=== PATIENT | female | born 1940 | race Caucasian/White ===

== ENCOUNTER 2020-07-21 15:43 | Emergency (ER) | payer MEDICARE, SELFPAY ==
--- NOTE | 2020-07-21 15:53 | ED.EXTPRO ---
HPI - Extremity Problem General Chief complaint: Extremity Injury, Lower Stated complaint: Numbness/Pain in Feet Time Seen by Provider: 07/21/20 16:23 Source: patient and RN notes reviewed Mode of arrival: ambulatory Limitations: no limitations History of Present Illness HPI Narrative: 80-year-old female with history of peripheral neuropathy presents with concern for bilateral lower extremity pain for 2 weeks. Reports she went to the ER and received pain medication at that time which she used all of. Reports she was seen by her primary care provider who put her on 100 mg of gabapentin twice daily that is not helping. She denies any new injury, trauma, change in status, reports she is having trouble sleeping to the pain. Reports she is unable to get into see pain management for approximately a month. MD Complaint: extremity pain Related Data Home Medications Medication Instructions Recorded Confirmed amlodipine 10 mg PO DAILY 07/21/20 07/21/20 gabapentin 100 mg PO BID 07/21/20 07/21/20 temazepam 15 mg PO HS 07/21/20 07/21/20 Allergies Allergy/AdvReac Type Severity Reaction Status Date / Time Sulfa (Sulfonamide Allergy Unknown Unknown Verified 07/21/20 16:04 Antibiotics) Review of Systems Review of Systems: Narrative: CONSTITUTIONAL: Denies malaise, chills, sweats, or fever. CARDIOVASCULAR: Denies chest pain, palpitations, or edema. RESPIRATORY: Denies cough or dyspnea. SKIN: Denies bruising, redness, open skin MUSCULOSKELETAL: Reports bilateral feet pain without injury NEUROLOGIC: Denies numbness, weakness. Reports bilateral feet pain and burning All systems reviewed & are unremarkable except as noted in HPI and below PMFSH Comments At time of signature, agree with nursing past medical, surgical, social and family history. There is no relevant family history pertinent to the presenting complaint Exam Narrative: Exam Narrative: GENERAL: Well-appearing, well-nourished, and in no acute distress. HEAD: Normocephalic, atraumatic. EYES: PERRLA, conjunctivae clear NECK: Supple. CHEST: Speaks in full sentences. No respiratory distress. HEART: Regular rate and rhythm. Normal and equal peripheral pulses. EXTREMITIES: Bilateral feet have normal strength and sensation, normal range of motion. No edema or ecchymosis. 5/5 strength with ankle and digit flexion and extension. Normal sensation with sensitivity to light touch and pain. No point tenderness. No open wounds, no skin tenting, no devitalized tissue or atrophy, no trophic changes, no obvious deformity, alignment normal, nearby joints and structures intact. Distal pulses palpable and equal bilaterally, skin warm, dry, pink. Capillary refill less than 3 seconds. SKIN: Warm, dry, no rash. NEURO: Alert and oriented x3. PSYCH: Normal mood and affect Course Course Emergency Course: Spoke with Dr. Giang's office who expressed a wish to not give patient pain medication, spoke about increasing gabapentin dose, which they will look into. Dr's office will call pain management to facilitate faster visit Patient is aware of, understands and agrees to treatment plan. Anticipatory guidance given. Patient agrees to follow-up as directed and is aware of reasons to seek care at the emergency department. Portions of this record may have been created with voice recognition software Vital Signs Vital signs: Vital Signs Temperature 99.7 F H 07/21/20 15:54 Pulse Rate 86 07/21/20 15:54 Respiratory Rate 16 07/21/20 15:54 Blood Pressure 130/61 07/21/20 15:54 Pulse Oximetry 98 07/21/20 15:54 Temperature 99.7 F H 07/21/20 16:08 Pulse Rate 86 07/21/20 16:08 Respiratory Rate 16 07/21/20 16:08 Blood Pressure 130/61 07/21/20 16:08 Pulse Oximetry 98 07/21/20 16:08 Reviewed. MDM - Extremity (Nontraumatic) MDM Narrative Medical decision making narrative: Exam findings show no acute concerns or changes; patient is non-toxic appearing and is in no distress.
[2020-07-21 15:54] VITALS: BP 130/61; PULSE 86; RESP 16; TEMP 37.6; O2SAT 98
[2020-07-21 16:08] VITALS: BP 130/61; PULSE 86; RESP 16; TEMP 37.6; O2SAT 98
== END 2020-07-21 16:26 | disposition home or self-care (01) ==
PROVIDERS: Emergency Provider Nurse Practitioner; PCP Internal Medicine
DX: G62.9 Polyneuropathy, unspecified (principal); I10 Essential (primary) hypertension; F41.9 Anxiety disorder, unspecified
CPT/HCPCS: 99213; G0463

== ENCOUNTER 2021-08-26 13:18 | Emergency (ER) | payer MEDICARE, SELFPAY ==
[2021-08-26 13:25] VITALS: BP 144/64; PULSE 95; RESP 20; TEMP 36.3; O2SAT 100
--- NOTE | 2021-08-26 13:43 | ED.URI ---
HPI - URI/Sore Throat General Chief Complaint: Upper Respiratory Infection Stated Complaint: Sore throat, ear pain, cough Time Seen by Provider: 08/26/21 13:21 Source: patient Mode of arrival: ambulatory Limitations: no limitations History of Present Illness HPI Narrative: 81-year-old female presents to urgent care with complaints of sore throat, bilateral ear pressure, runny nose and fatigue for the past week. Patient denies cough, shortness of breath, wheezing, nausea, vomiting or diarrhea. Patient is not COVID vaccinated. Patient denies sick contacts. Patient denies recent travel. MD elicited complaint: sore throat, rhinorrhea and nasal congestion Able to tolerate fluids by mouth: No Exacerbating factors: nothing Associated symptoms: denies other symptoms Treatments prior to arrival: none Related Data Home Medications Medication Instructions Recorded Confirmed amlodipine 10 mg PO DAILY 07/21/20 08/26/21 temazepam 15 mg PO HS 07/21/20 08/26/21 meloxicam 7.5 mg PO DAILY 08/26/21 08/26/21 omeprazole 20 mg PO DAILY 08/26/21 08/26/21 tramadol See Rx Instructions .ROUTE .COMPLEX 08/26/21 08/26/21 Allergies Allergy/AdvReac Type Severity Reaction Status Date / Time Sulfa (Sulfonamide Allergy Unknown Unknown Verified 08/26/21 13:34 Antibiotics) Review of Systems Constitutional: Constitutional: Denies chills, Reports fatigue, Denies fever(s) and Denies weakness ENT: Denies dysphagia, Denies vertigo, Denies dizziness, Reports nasal congestion and Reports sore throat Respiratory: Respiratory: Denies chest congestion, Denies cough, Denies dyspnea and Denies wheezing Gastrointestinal: Gastrointestinal: Denies abdominal pain, Denies constipation, Denies diarrhea, Denies nausea and Denies vomiting Integumentary/Breasts: Skin/Breast: Denies rash PMFSH Comments At time of signature, I agree with nursing past medical, surgical, social and family history. There is no relevant family history pertinent to the presenting complaint. Exam Const: General: healthy appearing and no acute distress Orientation/consciousness: patient oriented x3 HENMT: Head: normal to inspection Ears: external ears normal and TM's normal bilaterally General nose exam: Normal nares present Face and sinus: sinus tenderness Mouth: Yes moist mucous membranes Teeth and gingiva: dentition normal Throat: posterior oropharynx normal and uvula midline Neck: Neck: normal visual inspection Resp: Effort & Inspection: normal respiratory effort Auscultation: clear to auscultation bilaterally Cardio: Rate: regular rate Rhythm: regular rhythm and regular rhythm Skin: General skin exam: normal color Rashes: no rashes Neuro: General: patient oriented x3, moves all extremities and no meningeal signs Psych: Affect: normal affect Attitude: cooperative Course Course Level of Care: Express Care Visit Vital Signs Vital signs: Vital Signs Temperature 36.3 C L 08/26/21 13:25 Pulse Rate 95 08/26/21 13:25 Respiratory Rate 20 08/26/21 13:25 Blood Pressure 144/64 H 08/26/21 13:25 Pulse Oximetry 100 08/26/21 13:25 Temperature 36.3 C L 08/26/21 13:25 Pulse Rate 95 08/26/21 13:25 Respiratory Rate 20 08/26/21 13:25 Blood Pressure 144/64 H 08/26/21 13:25 Pulse Oximetry 100 08/26/21 13:25 MDM - URI/Sore Throat MDM Narrative Medical decision making narrative: Discussed positive COVID with patient. Patient understands that she is to self quarantine. Patient understands that she is take medications as prescribed. Patient agrees to proceed emergency room if symptoms worsen Differential Diagnosis Differential diagnosis: Likely upper respiratory infection, otitis media and sinusitis Critical Care Time Critical Care Time Critical Care Time: No Discharge Plan Discharge Clinical Impression: COVID-19 Patient Disposition: Home, Self-Care Condition: Stable Instructions: COVID-19 (Coronavirus Disease 2019) (ED)
== END 2021-08-26 13:55 | disposition home or self-care (01) ==
PROVIDERS: Emergency Provider Nurse Practitioner Family; PCP Internal Medicine
DX: U07.1 COVID-19 (principal); G62.9 Polyneuropathy, unspecified; I10 Essential (primary) hypertension
CPT/HCPCS: 87081; 87426; 87804; 87880; 99213; C9803; G0463

== ENCOUNTER 2024-01-24 13:38 | Emergency (ER) | payer MEDICARE, SELFPAY ==
--- NOTE | ~2024-01-24 | XR_ITS ---
XR hip LT min 2V Ordering provider: Iwona Pemberton APRN History: . LAT PAIN REFERRING DOWN HIP X 1 YEAR,NKI . Comparison: None. FINDINGS: BONES: No acute fracture or dislocation. HIP JOINT SPACES: Severe osteoarthritic changes. SACROILIAC JOINT SPACES/LUMBAR SPINE: The sacroiliac joint spaces are normal. Mild degenerative kendall es of the visualized lower lumbar spine. 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 PUBIC SYMPHYSIS: Pubic symphysitis. SOFT TISSUES: Vascular calcifications. IMPRESSION: No acute osseous abnormality pelvis and left hip. Reviewed, dictated and finalized at location A.
[2024-01-24 13:49] VITALS: BP 128/65; PULSE 90; RESP 20; TEMP 36.4; O2SAT 99
--- NOTE | 2024-01-24 14:32 | ED.LOWEXIN ---
HPI - Extremity Injury (Lower) General Chief Complaint: Extremity Injury, Lower Stated Complaint: Left Hip Paiin Time Seen by Provider: 01/24/24 14:32 Source: patient Mode of arrival: ambulatory Limitations: no limitations History of Present Illness HPI Narrative: 83 y/o female presented for c/o left hip pain worsening over 2 weeks. Denies new injury. Pain is constant to the left lateral hip and radiates to upper leg. Reports chronic intermittent left hip pain due to arthritis. Has tramadol but denies relief. Not using assistive device with walking. Denies numbness, tingling or weakness. Related Data Home Medications Medication Instructions Recorded Confirmed amlodipine 10 mg tablet 10 mg PO DAILY 07/21/20 08/26/21 temazepam 15 mg capsule 15 mg PO HS 07/21/20 08/26/21 omeprazole 20 mg capsule,delayed 20 mg PO DAILY 08/26/21 08/26/21 release tramadol 50 mg tablet See Rx Instructions .Route .COMPLEX 08/26/21 08/26/21 gabapentin 300 mg capsule mg 01/24/24 Allergies Allergy/AdvReac Type Severity Reaction Status Date / Time Sulfa (Sulfonamide Allergy Unknown Unknown Verified 01/24/24 13:58 Antibiotics) Review of Systems Review of Systems: CONSTITUTIONAL: Denies body aches, fever, chills CARDIOVASCULAR: Denies chest pain, palpitations, or edema. RESPIRATORY: Denies cough or dyspnea. GASTROINTESTINAL: Denies abdominal pain, nausea, vomiting, or diarrhea. SKIN: Denies rash, itching, or wounds. MUSCULOSKELETAL: reports left hip pain NEUROLOGIC: Denies headache, numbness, tingling, or weakness. All systems reviewed & are unremarkable except as noted in HPI and below [facility] Past Medical History Medical History (Updated 01/24/24 @ 15:22 by Iwona Pemberton, RENNY) Hypertension Comments At time of signature, I have reviewed and agree with nursing past medical, surgical, social and family history unless otherwise noted. Please see nursing chart for further information. There is no relevant family history pertinent to the presenting complaint Exam Narrative: GENERAL: Well-appearing CHEST: Speaks in full sentences. No respiratory distress. HEART: Regular rate and rhythm. Normal and equal peripheral pulses. EXTREMITIES: Left lateral hip tender with palpation. Left leg has normal strength and sensation, baseline range of motion at hip but endorses pain with movement. No ecchymosis, No open wounds, or obvious deformity; alignment normal, pulse palpable and equal bilaterally, skin warm, dry, pink. Capillary refill less than 3 seconds. SKIN: Warm, dry NEURO: Alert and oriented x3. PSYCH: Normal mood and affect Extrem: Upper/lower leg/hip images: 1. area of pain reported Course Course Emergency Course: Patient is aware of diagnosis, understands and agrees to treatment plan. Anticipatory guidance given. Patient agrees to follow-up as directed and is aware of reasons to seek care at the emergency department. Portions of this record may have been created with voice recognition software Level of Care: Express Care Visit Vital Signs Vital signs: Vital Signs Temperature 97.5 F L 01/24/24 13:49 Pulse Rate 90 01/24/24 13:49 Respiratory Rate 20 01/24/24 13:49 Blood Pressure 128/65 01/24/24 13:49 Pulse Oximetry 99 01/24/24 13:49 Oxygen Delivery Room Air 01/24/24 13:49 Temperature 97.5 F L 01/24/24 13:49 Pulse Rate 90 01/24/24 13:49 Respiratory Rate 20 01/24/24 13:49 Blood Pressure 128/65 01/24/24 13:49 Pulse Oximetry 99 01/24/24 13:49 Oxygen Delivery Room Air 01/24/24 13:49 Reviewed MDM - Extremity Injury (Lower) MDM Narrative Medical decision making narrative: results of x-ray reviewed with patient. Discussed physical exam findings. IM DepoMedrol given. Advised supportive measures and signs/symptoms to go to the ER. Pt is appropriate for outpt treatment and f/u. Differential Diagnosis Differential diagnosis: Likely acute internal derangement o
[2024-01-24] MEDS: methylPREDNISolone ACETATE 40 MG/ML VIAL IM (15:15)
== END 2024-01-24 15:46 | disposition home or self-care (01) ==
PROVIDERS: Emergency Provider Nurse Practitioner Family; PCP Internal Medicine
DX: M25.552 Pain in left hip (principal); I10 Essential (primary) hypertension
CPT/HCPCS: 73502; 96372; 99213; G0463; J1010

== ENCOUNTER 2024-05-27 13:25 | Emergency (ER) | payer MEDICARE, SELFPAY ==
[2024-05-27 13:30] VITALS: BP 147/63; PULSE 94; RESP 18; TEMP 36.2; O2SAT 100
--- NOTE | 2024-05-27 14:01 | ED.URI ---
HPI - URI/Sore Throat General Chief Complaint: Upper Respiratory Infection Stated Complaint: sinus head congestion Time Seen by Provider: 05/27/24 13:50 Source: patient, RN notes reviewed and old records reviewed Mode of arrival: ambulatory Limitations: no limitations History of Present Illness HPI Narrative: 84 year old female who presents to [facility] care with complaints of sinus head congestion for the past 3 weeks with sinus drainage, and facial pressure. Patient reports that she has been taking Flonase nasal spray and Claritin for her symptoms without resolution. Patient reports that she has sinus pressure and some frontal headaches from her sinus problems. Patient voices past history of sinus problems and infections. Patient reports no known fevers, chills or sweats or any body aches. MD elicited complaint: rhinorrhea, nasal congestion and other (facial pressure) Pertinent past history: sinusitis Onset (ago): week(s) (3) Severity: moderate Able to tolerate fluids by mouth: Yes Treatments prior to arrival: other (Flonase and also Claritin) Related Data Home Medications Medication Instructions Recorded Confirmed amlodipine 10 mg tablet 10 mg PO DAILY 07/21/20 08/26/21 temazepam 15 mg capsule 15 mg PO HS 07/21/20 08/26/21 omeprazole 20 mg capsule,delayed 20 mg PO DAILY 08/26/21 08/26/21 release tramadol 50 mg tablet See Rx Instructions .Route .COMPLEX 08/26/21 08/26/21 gabapentin 300 mg capsule mg 01/24/24 Allergies Allergy/AdvReac Type Severity Reaction Status Date / Time Sulfa (Sulfonamide Allergy Unknown Unknown Verified 01/24/24 13:58 Antibiotics) Review of Systems Review of Systems: CONSTITUTIONAL: Denies malaise, chills, sweats, or fever. EYES: Denies visual changes, redness, or discharge. ENT: Reports rhinorrhea, congestion, sinus pain,no otalgia and scratchy sore throat. CARDIOVASCULAR: Denies chest pain, palpitations, or edema. RESPIRATORY: Reports no cough.? Denies dyspnea. GASTROINTESTINAL: Denies abdominal pain, nausea, vomiting, diarrhea SKIN: Denies rash or itching. MUSCULOSKELETAL: Denies myalgia. NEUROLOGIC:some frontal headache. All systems reviewed & are unremarkable except as noted in HPI and below PMFSH Past Medical History Medical History (Updated 05/28/24 @ 12:53 by Susan Medley NP) Arthritis Fracture of right wrist Hypertension Insomnia Neuropathy Sinusitis Surgical History Surgical History (Updated 05/28/24 @ 12:49 by Susan Medley NP) History of cholecystectomy Social History Social History (Updated 05/28/24 @ 12:48 by Susan Medley NP) Smoking status: Never smoker Alcohol intake: never Substance use: never Gender identity (if verbalized by the patient): Female Comments At time of signature, agree with nursing past medical, surgical, social and family history. There is no relevant family history pertinent to the presenting complaint Exam Narrative: GENERAL: Well-appearing, well-nourished, and in no acute distress. HEAD: Normocephalic EYES: PERRLA, conjunctivae clear ENT: Nares clear, turbinates edematous and erythematous, clear discharge, sinus pressure, frontal headaches. Mucous membranes moist. TM pearly castro with dull light reflex bilaterally; no tragal tenderness. Oropharynx erythematous without lesions. Tonsils not enlarged and without exudate, no drooling, no hoarseness, no trismus, uvula midline.post nasal drainage NECK: Supple. No lymphadenopathy CHEST: Clear to auscultation, breath sounds equal. No wheezing, rhonchi, rales, or stridor. No respiratory distress, speaks in full sentences.no cough noted SAO2 100% on room air HEART: Regular rate and rhythm. No murmur heard. SKIN: Warm, dry, no rash. NEURO: Alert and oriented x3. PSYCH: Normal mood and affect Course Course Emergency Course: Patient is aware of diagnosis, understands and agrees to treatment plan.? Anticipatory guidance given
== END 2024-05-27 14:21 | disposition home or self-care (01) ==
PROVIDERS: Emergency Provider Registered Nurse; PCP Internal Medicine
DX: J32.9 Chronic sinusitis, unspecified (principal); M19.90 Unspecified osteoarthritis, unspecified site; I10 Essential (primary) hypertension
CPT/HCPCS: 99213; G0463

== ENCOUNTER 2024-09-28 14:45 | Emergency (ER) | payer MEDICARE, SELFPAY ==
--- OUTSIDE RECORDS SUMMARY | 2024-09-28 14:47 | XMS_ITS | Encounter Summary ---
Author Organization [facility] Address [address] [place] [address] Phone Care Team Providers Care Merchandise Complaint Adjuster Name Role Phone John Giang MD Primary Care Provider [phone] Reason for Visit * Reason Comments Medication Refill Encounter Details Date Type Department Care Team ([facility] Contact Info) Description 06/20/2023 Refill [facility] [address] [place] [address] John Giang MD [address] [place] [address] Medication Refill Social History Tobacco Use Types Packs/Day Years Used Date Smoking Tobacco: Never Passive Smoke Exposure: Never Smokeless Tobacco: Never Alcohol Use Standard Drinks/Week Comments Never 0 (1 standard drink = 0.6 oz pur e alcohol) Education Answer Date Recorded What is the highest level of school you have completed or the highest degree you have received? 12th grade 10/31/2022 Sexually Active Control Partners Comments Not Currently Comments No Sex and Gender Information Value Date Recorded Sex Assigned at Not on file Legal Sex Female 12:34 AM CDT Gender Identity Not on file Sexual Orientation Not on file documented as of this encounter Plan of Treatment Upcoming Encounters Date Type Department Care Team ([facility] Contact Info) Description 10/10/2024 1:45 PM LEGAL TRANSCRIBER Office Visit [facility] Internal [facility] [address] [place] [address] John Giang MD [address] [place] [address] documented as of this encounter Visit Diagnoses Diagnosis Generalized anxiety disorder documented in this encounter Additional Health Concerns Assessment Noted Time PHQ-9 Depression Total Score: 0 08/24/19 21 1:00 PM LEGAL TRANSCRIBER documented as of this encounter Care Teams Merchandise Complaint Adjuster Relationship Specialty Start Date End Date John Giang MD [address] [place] [address] PCP - General Internal Medicine 09/26/19 documented as of this encounter
--- OUTSIDE RECORDS SUMMARY | 2024-09-28 14:47 | XMS_ITS | Encounter Summary ---
Author Organization [facility] Address [address] [place] [address] Phone Care Team Providers Care Staff Technologist Name Role Phone John Giang MD Primary Care Provider [phone] Reason for Visit * Reason Comments Medication Refill Encounter Details Date Type Department Care Team (Late st Contact Info) Description 01/30/2023 Refill [facility] - Internal Medicine - [place] [address] [place] [id number] John Giang MD [address] [facility] [address] Medication Refill Social History Tobacco [...] on file documented as of this encounter Miscellaneous Notes * Telephone Encounter - Margarita Baer RN - 01/30/2023 9:46 AM CDT Medication failed the protocol, provider to review and approve the medication order if appropriate. Requested Prescriptions Pending Prescriptions Disp Refills temazepam (RESTORIL) 15 MG Capsule [Pharmacy Med Name: TEMAZEPAM 15MG CAPSULE] 30 Capsule 0 Sig: Take 1 Capsule by mouth nightly as needed for Sleep. Not Delegated - Off Protocol Failed - 01/30/2023 9:44 AM Failed - This refill cannot be delegated Passed - Visit with relevant provider in past 12 months or upcoming 90 days Recent Visits Date Type Provider Dept 12/22/22 Office Visit John Giang MD [facility] 11/21/22 Office Visit John Giang, MD [facility] 11/07/22 Office Visit John Giang MD [facility] 10/31/22 Office Visit Terri Melvin, PAC [facility] 06/30/22 Office Visit John Giang MD [facility] 05/12/22 Office Visit Terri Melvin, PAC [facility] 05/06/22 Office Visit Terri Melvin, PAC [facility] 05/06/22 Appointment [facility] Showing recent visits within past 365 days and meeting all other requirements Future Appointments Date Type Provider Dept 03/27/23 Appointment John Giang MD [facility] Showing future appointments within next 90 days and meeting all other requirements documented in this encounter Plan of Treatment Upcoming Encounters Date Type Department Care Team (Late st Contact Info) Description 10/10/2024 1:45 PM DIRECTOR OF CODING Office Visit [facility] - Internal Medicine - [place] [address] [place] [id number] John Giang MD [address] [place] [address] documented as of this encounter Visit Diagnoses Diagnosis Primary insomnia Persistent disorder of initiating or maintaining sleep documented in this encounter Additional Health Concerns Assessment Noted Time PHQ-9 Depression Total Score: 0 08/24/19 21 1:00 PM DIRECTOR OF CODING documented as of this encounter Care Teams Staff Technologist Relationship Specialty Start Date End Date John Giang MD [address] [place] [address] PCP - General Internal Medicine 09/26/19 documented as of this encounter
--- OUTSIDE RECORDS SUMMARY | 2024-09-28 14:47 | XMS_ITS | Encounter Summary ---
Author Organization [facility] Address [address] [place] [address] Phone Care Team Providers Care Aeronautical Drafter Name Role Phone John Giang MD Primary Care Provider [phone]- [phone] Reason for Visit * Reason Comments Medication Refill Encounter Details Date Type Department Care Team (Late st Contact Info) Description 06/23/2023 Refill [facility] - Internal Medicine - [place] [address] [place] [id number] John Giang MD [address] [facility] [place] [address] Medication Refill Social History Tobacco [...] Telephone Encounter - Margarita Baer RN - 06/23/2023 10:34 AM CST Medication failed the protocol, provider to review and approve the medication order if appropriate. Requested Prescriptions Pending Prescriptions Disp Refills temazepam (RESTORIL) 15 MG Capsule [Pharmacy Med Name: TEMAZEPAM 15MG CAPSULE] 30 Capsule 1 Sig: TAKE 1 CAPSULE BY MOUTH NIGHTLY NEEDED FOR SLEEP. Not Delegated - Off Protocol Failed - 06/23/2023 10:24 AM Failed - This refill cannot be delegated Passed - Visit with relevant provider in past 12 months or upcoming 90 days Recent Visits Date Type Provider Dept 04/13/23 Office Visit John Giang MD [facility] 12/22/22 Office Visit John Giang MD [facility] 11/21/22 Office Visit John Giang MD [facility] 11/07/22 Office Visit John Giang MD [facility] 10/31/22 Office Visit Terri Melvin PAC [facility] 06/30/22 Office Visit John Giang MD [facility] Showing recent visits within past 365 days and meeting all other requirements Future Appointments Date Type Provider Dept 07/20/23 Appointment John Giang MD [facility] Showing future appointments within next 90 days and meeting all other requirements [facility] documented in this encounter Plan of Treatment Upcoming Encounters Date Type Department Care Team (Late st Contact Info) Description 10/10/2024 1:45 PM [facility] Office Visit [facility] - Internal Medicine - [place] [address] [place] [phone] John Giang MD [address] [place] [address] documented as of this encounter Visit Diagnoses Diagnosis Primary insomnia Persistent disorder of initiating or maintaining sleep documented in this encounter Additional Health Concerns Assessment Noted Time PHQ-9 Depression Total Score: 0 08/24/19 21 1:00 PM [facility] documented as of this encounter Care Teams Aeronautical Drafter Relationship Specialty Start Date End Date John Giang MD [address] [place] [address] PCP - General Internal Medicine 09/26/19 documented as of this encounter
--- OUTSIDE RECORDS SUMMARY | 2024-09-28 14:47 | XMS_ITS | Referral Summary ---
Author Organization [facility] Address [address] [place] [address] Care Team Providers Care Criminal Analyst Name Role Phone John Giang MD Primary Care Provider +1- [phone] Mattie Myles MD Unavailable Allergies Active Allergy Reactions Criticality Noted Date Comments Sulfa (Sulfonamide Antibiotics) Unknown 03/2019 Medications temazepam (RESTORIL) 15 mg capsuleIndication s:Insomnia Take 1 capsule (15 mg total) by mouth nightly as needed for sleep 3 capsule 03/01/20 19 Active omeprazole (PriLOSEC) 20 mg capsule Take 1 capsule (20 mg total) by mouth daily Active amLODIPine (NORVASC) 10 mg tablet Take 1 tablet (10 mg total) by mouth daily 30 tablet 11 05/10/20 19 Active acetaminophen (TYLENOL) 325 mg tablet Take 2 tablets (650 mg total) by mouth every 6 (six) hours as needed for pain or fever (pain) 30 tablet 05/09/20 19 Active LORazepam (ATIVAN) 0.5 mg tablet 05/28/20 19 Active ondansetron ODT (ZOFRAN-ODT) 4 mg disintegrating tablet Take 1 tablet (4 mg total) by mouth every 8 (eight) hours as needed for nausea or vomiting 20 tablet 1 06/10/20 19 Active bisacodyL (DULCOLAX) 10 mg suppositoryIndica tions:constipatio n Insert 1 suppository (10 mg total) into the rectum daily Use as needed for constipation. 12 suppository 04/05/20 20 Active diclofenac sodium (VOLTAREN) 1 % gelIndications:Os teoarthritis Apply 2 g topically 3 (three) times a day 50 g 06/24/20 20 Active hydrOXYzine (ATARAX) 25 mg tablet Take 1 tablet (25 mg total) by mouth 3 (three) times a day as needed for itching 20 tablet 07/07/20 20 Active HYDROcodone-aceta minophen (NORCO) 5-325 mg per tablet Take 1-2 tablets by mouth every 6 (six) hours as needed 07/10/20 20 Active docusate sodium (COLACE) 100 mg capsuleIndication s:constipation Take 1 capsule (100 mg total) by mouth 2 (two) times a day 60 capsule 08/27/19 21 Active psyllium (METAMUCIL) powder Take 1 packet by mouth 3 (three) times a day with at least 240 mL of liquid 368 g 08/27/19 21 Active metoclopramide (REGLAN) 10 mg tablet Take 1 tablet (10 mg total) by mouth every 6 (six) hours as needed (Nausea) 20 tablet 08/27/19 21 Active famotidine (PEPCID) 40 mg tablet Take 1 tablet (40 mg total) by mouth nightly for 14 days 14 tablet 08/27/19 21 Active traMADol-acetamin ophen (ULTRACET) 37.5-325 mg per tablet Take 1 tablet by mouth every 6 (six) hours as needed for pain Take as directed with food. Collaborating physician Gennaro Galeana MD 20 tablet 10/29/19 23 Active Active Problems Problem Noted Date Diagnosed Date Head injury, initial encounter 10/28/2022 Forehead laceration, initial encounter 3 Cervical strain, acute, initial encounter 2022 Transaminitis 06/08/2019 Assessment & Plan (06/10/2019 9:47 AM CDT): During prior admission LFTs improved following cholecystectomy: alk-phos 153 > 89, AST 266 > 62, ALT 263 > 109. On presentation to ED on 06/07 labs were performed in 8 hour interval and showed significant increase between testing around noon and then again at 8:00 PM: alk-phos 166 > 282, AST 174 > 854, ALT 67 > 508. There is no bilirubin elevation either in April or currently. CT abdomen pelvis on 06/07 showed mild intrahepatic and extrahepatic pillar dilatation with common hepatic common bile duct measuring 10-11 mm; without identifiable opaque intraluminal filling. Rising LFTs possibly d/t retained bile duct stone although not visualized on CT. Lipase unremarkable. Acetominophen level negative. Hepatits panel negative. LFTs improving GI on board. MRCP 06/09/19: No bile leak, no filling defeat, increased biliary dilatation consistent with postop cholesctectomy. Discuss the need for ERCP with GI. Morphine 2mg q4h PRN for pain Hypertension, essential 06/08/2019 Assessment & Plan (06/08/2019 1:08 AM CDT): Continue home amlodipine 5 mg daily Other chest pain 03/27/2019 Generalized anxiety disorder 03/27/2019 Assessment & Plan (06/08/2019 1:10 AM CDT): Receives 0.5 mg lorazepam TID PRN for her anxiety. Will hold off on additional benzodiazepines while patient is admitted. Can consider hydroxyzine PRN if patient has issues with anxiety while admitted Chronic idiopathic constipation 03/27/2019 Insomnia 01/10/2019 Assessment & Plan (06/08/2019 1:09 AM CDT): Prescribed temazepam 15 mg nightly at home. Will dose reduce for geriatric to 7.5 mg nightly qHs Degenerative disc disease, cervical 12/27/2018 Occipital neuralgia of right side 12/27/2018 EKG abnormalities Chronic nonintractable headache Epigastric pain Gallstone pancreatitis Resolved Problems Problem Noted Date Diagnosed Date Resolved Date Acute cholecystitis 05/07/2019 06/08/20 19 Hyponatremia 03/27/2019 06/08/2019 Immunizations Name Administration Dates Next Due Tdap 10/28/2022 Social History Tobacco Use Types Packs/Day Years Used Date Smoking Tobacco: Never Smokeless Tobacco: Never Alcohol Use Standard Drinks/Week Comments Never 0 (1 standard drink = 0.6 oz pur e alcohol) AUDIT-C Answer Date Recorded Frequency of Alcohol Consumption Never 12/27/2018 Average Number of Drinks Not on file 019 Frequency of Binge Drinking Not on file 12/12 PHQ-2 Answer Date Recorded PHQ-2 Score 0 04/03/2019 Personal Safety Answer Date Recorded Have you ever been in or are you currently in a harmful physical or emotional relationship or is someone making you feel afraid or unsafe? Denies 01/28/2024 Comments No Sex and Gender Information Value Date Recorded Sex Assigned at Not on file Legal Sex Female 9:12 AM HANDBELL CHOIR DIRECTOR Gender Identity Not on file Sexual Orientation Not on file Last Filed Vital Signs Vital Sign Reading Time Taken Comments Blood Pressure 120/73 03/28/2024 10:50 AM CDT Pulse 84 03/28/2024 10:50 AM CDT Temperature 36.3 C (97.3 F) 01/28/2024 7:11 PM CDT Respiratory Rate 16 01/28/2024 7:11 PM CDT Oxygen Saturation 97% 01/28/2024 7:11 PM CDT Inhaled Oxygen Concentration - - Weight 62.1 kg (137 lb) 03/28/2024 10:50 AM CDT Height 165.1 cm (5' 5 ) 03/28/2024 10:50 AM CDT Body Mass Index 22.8 03/28/2024 10:50 AM CDT Plan of Treatment Not on [place] [address] [address] [facility] [employer] [place] [address] [employer] MEDICARE GOLD Advance Directives For more information, please contact: [phone] * Full Code (Latest Code Status on File) Date Activated Date Inactivated Comments 06/07/2019 11:04 PM 06/10/2019 5:07 PM * Full Code Date Activated Date Inactivated Comments 05/07/2019 4:14 PM 05/09/2019 8:31 PM * Full Code Date Activated Date Inactivated Comments 03/27/2019 5:35 PM 03/28/2019 10:20 PM Care Teams Criminal Analyst Relationship Specialty Start Date End Date John Giang MD PCP - General 12/07/18 Mattie Myles MD Consulting Physician Neurology 03/28/19
--- OUTSIDE RECORDS SUMMARY | 2024-09-28 14:47 | XMS_ITS | Encounter Summary ---
Author Organization [facility] Address [address] [place] [address] Phone Care Team Providers Care Monorail Crane Operator Name Role Phone John Giang MD Primary Care Provider [phone]- [phone] Reason for Visit * Reason Comments Medication Refill Encounter Details Date Type Department Care Team ([facility] Contact Info) Description 03/29/2023 Refill [facility] Internal Medicine [facility] [address] [place] [address] John Giang MD [address] [place] [address] Medication Refill Social History Tobacco [...] Upcoming Encounters Date Type Department Care Team ([facility] Contact Info) Description 10/10/2024 1:45 PM TRAVEL DIRECTOR Office Visit [facility] Internal [facility] [address] [place] [address] John Giang MD [address] [place] [address] documented as of this encounter Visit Diagnoses Diagnosis Primary insomnia Persistent disorder of initiating or maintaining sleep documented in this encounter Additional Health Concerns Assessment Noted Time PHQ-9 Depression Total Score: 0 08/24/19 21 1:00 PM TRAVEL DIRECTOR documented as of this encounter Care Teams Monorail Crane Operator Relationship Specialty Start Date End Date John Giang MD [address] [place] [address] PCP - General Internal Medicine 09/26/19 documented as of this encounter
--- OUTSIDE RECORDS SUMMARY | 2024-09-28 14:47 | XMS_ITS | Encounter Summary ---
Author Organization [facility] Address [address] [place] [address] Phone Care Team Providers Care Senior Partner Name Role Phone John Giang MD Primary Care Provider Reason for Visit * Reason Comments Medication Refill Encounter Details Date Type Department Care Team (Late st Contact Info) Description 05/01/2020 Refill [facility] - Internal Medicine - [place] [address] [place] [id number] John Giang MD [address] [facility] [place] [address] Medication Refill Social History Tobacco Use Types Packs/Day Years Used Date Smoking Tobacco: Never Assessed Comments Unknown Sex and Gender Information Value Date Recorded Sex Assigned at Not on file Legal Sex Female 12:34 AM CDT Gender Identity Not on file Sexual Orientation Not on file documented as of this encounter Miscellaneous Notes * Telephone Encounter - Ileana Tapia RN - 05/05/2020 11:19 AM CDT Order pended * Telephone Encounter - Ileana Tapia RN - 05/05/2020 8:27 AM CDT Please review and sign. documented in this encounter Plan of Treatment Upcoming Encounters Date Type Department Care Team (Late st Contact Info) Description 10/10/2024 1:45 PM PERCOLATOR OPERATOR Office Visit [facility] - Internal Medicine [facility] [address] [place] [address] John Giang MD [address] [place] [address] documented as of this encounter Visit Diagnoses Not on filedocumented in this encounter Additional Health Concerns Infection Onset Date Last Indicated Resolved Time COVID - 19 2022 05/06/2022 05/16/2022 12:1 6 AM CDT documented as of this encounter Care Teams Senior Partner Relationship Specialty Start Date End Date John Giang MD [address] [place] [address] PCP - General Internal Medicine 09/26/19 documented as of this encounter
--- OUTSIDE RECORDS SUMMARY | 2024-09-28 14:47 | XMS_ITS | Encounter Summary ---
Author Organization [facility] Address [address] [place] [address] Phone Care Team Providers Care Rehabilitation Services Manager Name Role Phone John Giang MD Primary Care Provider Reason for Visit * Reason Comments Medication Refill Encounter Details Date Type Department Care Team (Late st Contact Info) Description 06/25/2022 Refill [facility] - [place] [address] [facility] [place] [place] [phone] John Giang MD [address] [facility] [place] [address] Medication Refill Social History Tobacco Use Types Packs/Day Years Used Date Smoking Tobacco: Never Smokeless Tobacco: Never Alcohol Use Standard Drinks/Week Comments Never 0 (1 standard drink = 0.6 oz pur e alcohol) Sexually Active Control Partners Comments Not Currently Comments No Sex and Gender Information Value Date Recorded Sex Assigned at Not on file Legal Sex Female 12:34 AM CDT Gender Identity Not on file Sexual Orientation Not on file documented as of this encounter Miscellaneous Notes * Telephone Encounter - John Giang MD - 06/27/2022 7:52 AM RELATIONSHIP ASSOC Refill denied - See Refusal reason [employer] * Telephone Encounter - Ileana Tapia RN - 06/27/2022 6:50 AM CST Medication failed the protocol, provider to review and approve the medication order if appropriate. Requested Prescriptions Pending Prescriptions Disp Refills temazepam (RESTORIL) 15 MG Capsule [Pharmacy Med Name: TEMAZEPAM 15MG CAPSULE] 30 Capsule 4 Sig: TAKE 1 CAPSULE BY MOUTH NIGHTLY NEEDED FOR SLEEP. Not Delegated - Off Protocol Failed - 06/25/2022 9:22 PM Failed - This refill cannot be delegated Passed - Visit with relevant provider in past 12 months or upcoming 90 days Recent Visits Date Type Provider Dept 05/12/22 Office Visit Terri Melvin, [facility] [place] 05/06/22 Office Visit Terri Melvin, [facility] [place] 05/06/22 Appointment [facility] [place] 01/18/22 Office Visit John Giang MD [facility] [place] 10/15/21 Office Visit John Giang MD [facility] Showing recent visits within past 365 days and meeting all other requirements Future Appointments No visits were found meeting these conditions. Showing future appointments within next 90 days and meeting all other requirements [employer] documented in this encounter Plan of Treatment Upcoming Encounters Date Type Department Care Team (Late st Contact Info) Description 10/10/2024 1:45 PM RELATIONSHIP ASSOC Office Visit [facility] - Internal Medicine - [place] [address] [place] [id number] John Giang MD [address] [place] [address] documented as of this encounter Visit Diagnoses Diagnosis Primary insomnia Persistent disorder of initiating or maintaining sleep documented in this encounter Additional Health Concerns Assessment Noted Time PHQ-9 Depression Total Score: 0 08/24/19 21 1:00 PM RELATIONSHIP ASSOC documented as of this encounter Care Teams Rehabilitation Services Manager Relationship Specialty Start Date End Date John Giang MD [address] [place] [place] [address] PCP - General Internal Medicine 09/26/19 documented as of this encounter
--- OUTSIDE RECORDS SUMMARY | 2024-09-28 14:47 | XMS_ITS | Encounter Summary ---
Author Organization [facility] Address [address] [place] [address] Phone Care Team Providers Care Accordion Tuner Name Role Phone John Giang MD Primary Care Provider [phone]- [phone] Reason for Visit * Reason Comments Medication Refill Encounter Details Date Type Department Care Team (Late st Contact Info) Description 10/26/2020 Refill [facility] Medicine - [place] [address] [place] [address] John Giang MD [address] [place] [address] Medication Refill Social History Tobacco Use Types Packs/Day Years Used Date Smoking Tobacco: Never Smokeless Tobacco: Never Alcohol Use Standard Drinks/Week Comments Never 0 (1 standard drink = 0.6 oz pur e alcohol) Comments No Sex and Gender Information Value Date Recorded Sex Assigned at Not on file Legal Sex Female 12:34 AM CDT Gender Identity Not on file Sexual Orientation Not on file documented as of this encounter Miscellaneous Notes * Telephone Encounter - Ileana Tapia RN - 10/26/2020 11:44 AM CDT Please review and sign. * Telephone Encounter - Ileana Tapia RN - 10/26/2020 11:19 AM CDT Order pended documented in this encounter Plan of Treatment Upcoming Encounters Date Type Department Care Team (Late st Contact Info) Description 10/10/2024 1:45 PM MACHINE EGG WASHER Office Visit [facility] - Internal Medicine [place] [address] [place] [address] John Giang MD [address] [place] [address] documented as of this encounter Visit Diagnoses Not on filedocumented in this encounter Additional Health Concerns Infection Onset Date Last Indicated Resolved Time COVID - 19 2022 05/06/2022 05/16/2022 12:1 6 AM CDT Assessment Noted Time PHQ-9 Depression Total Score: 0 08/24/19 21 1:00 PM MACHINE EGG WASHER documented as of this encounter Care Teams Accordion Tuner Relationship Specialty Start Date End Date John Giang MD [address] [place] [address] PCP - General Internal Medicine 09/26/19 documented as of this encounter
--- OUTSIDE RECORDS SUMMARY | 2024-09-28 14:47 | XMS_ITS | Encounter Summary ---
Author Organization [facility] Address [address] [place] [address] Phone Care Team Providers Care Community Liaison Officer Name Role Phone John Giang MD Primary Care Provider [phone]- [phone] Reason for Visit * Reason Comments Medication Refill Encounter Details Date Type Department Care Team (Late st Contact Info) Description 08/25/2020 Refill [facility] - Internal Medicine - [place] [address] [place] [address] John Giang MD [address] [place] [address] Medication Refill Social History Tobacco [...] on file Sexual Orientation Not on file COVID-19 Exposure Response Date Recorded In the last month, have you been in contact with someone who was confirmed or suspected to have Coronavirus / COVID-19? No / Unsure 08/24/2020 1:26 PM PACKAGING MECHANIC documented as of this encounter Miscellaneous Notes * Telephone Encounter - Ileana Tapia RN - 08/25/2020 8:31 AM CST Please review and sign. AGING MECHANIC documented in this encounter Plan of Treatment Upcoming Encounters Date Type Department Care Team (Late st Contact Info) Description 10/10/2024 1:45 PM PACKAGING MECHANIC Office Visit [facility] - Internal Medicine [place] [address] [place] [address] John Giang MD [address] [place] [address] documented as of this encounter Visit Diagnoses Not on filedocumented in this encounter Additional Health Concerns Infection Onset Date Last Indicated Resolved Time COVID - 19 2022 05/06/2022 05/16/2022 12:1 6 AM CDT Assessment Noted Time PHQ-9 Depression Total Score: 0 08/24/19 21 1:00 PM PACKAGING MECHANIC documented as of this encounter Care Teams Community Liaison Officer Relationship Specialty Start Date End Date John Giang MD [address] [place] [address] PCP - General Internal Medicine 09/26/19 documented as of this encounter
--- OUTSIDE RECORDS SUMMARY | 2024-09-28 14:47 | XMS_ITS | Encounter Summary ---
Author Organization [facility] Address [address] [place] [address] Phone Care Team Providers Care Dog Breeder Name Role Phone John Giang MD Primary Care Provider [phone]- [phone] Reason for Visit * Reason Comments Medication Refill Encounter Details Date Type Department Care Team (Late st Contact Info) Description 01/30/2023 Refill [facility] - Internal Medicine - [place] [address] [place] [address] Terri Melvin, [facility] [address] [place] [address] Medication Refill Social History Tobacco [...] encounter Miscellaneous Notes * Telephone Encounter - Dalila France RN - 01/31/2023 8:05 AM CDT Duplicate request documented in this encounter Plan of Treatment Upcoming Encounters Date Type Department Care Team (Late st Contact Info) Description 10/10/2024 1:45 PM RADIO PROGRAM CHECKER Office Visit [facility] - Internal Medicine [facility] [address] [place] [address] John Giang MD [address] [place] [address] documented as of this encounter Visit Diagnoses Diagnosis Chronic pain of both shoulders Pain in joint, shoulder region documented in this encounter Additional Health Concerns Assessment Noted Time PHQ-9 Depression Total Score: 0 08/24/19 21 1:00 PM RADIO PROGRAM CHECKER documented as of this encounter Care Teams Dog Breeder Relationship Specialty Start Date End Date John Giang MD [address] [place] [address] PCP - General Internal Medicine 09/26/19 documented as of this encounter
--- OUTSIDE RECORDS SUMMARY | 2024-09-28 14:47 | XMS_ITS | Encounter Summary ---
Author Organization [facility] Address [address] [place] [address] Phone Care Team Providers Care Terrazzo Finisher Name Role Phone John Giang MD Primary Care Provider [phone] Reason for Visit * Reason Comments Medication Refill Encounter Details Date Type Department Care Team (Late st Contact Info) Description 06/28/2022 Refill [facility] - Internal Medicine - [place] [address] [place] [address] John Giang MD [address] [facility] [place] [address] Medication Refill Social History Tobacco [...] Exposure Response Date Recorded In the last 10 days, have yo u been in contact with someone who was confirmed or suspected to have Coronavirus/COVID-19? No / Unsure 06/30/2022 10:45 AM EMERGENCY TECHNICIAN documented as of this encounter Miscellaneous Notes * Telephone Encounter - Margarita Baer RN - 06/28/2022 3:19 PM CST duplicate GENCY TECHNICIAN documented in this encounter Plan of Treatment Upcoming Encounters Date Type Department Care Team (Late st Contact Info) Description 10/10/2024 1:45 PM EMERGENCY TECHNICIAN Office Visit [facility] - Internal Medicine [place] [address] [place] [place] [address] John Giang MD [address] [place] [address] documented as of this encounter Visit Diagnoses Diagnosis Primary insomnia Persistent disorder of initiating or maintaining sleep documented in this encounter Additional Health Concerns Assessment Noted Time PHQ-9 Depression Total Score: 0 08/24/19 21 1:00 PM EMERGENCY TECHNICIAN documented as of this encounter Care Teams Terrazzo Finisher Relationship Specialty Start Date End Date John Giang MD [address] [place] [address] PCP - General Internal Medicine 09/26/19 documented as of this encounter
--- OUTSIDE RECORDS SUMMARY | 2024-09-28 14:47 | XMS_ITS | Clinical Summary ---
Author Organization [facility] Address [address] [place] [address] Care Team Providers Care Marketing Automation Specialist Name Role Phone John Giang MD Primary Care Provider [phone]- [phone] Mattie Myles MD Unavailable Allergies Active Allergy [...] Name Administration Dates Next Due Tdap 10/28/2022 Surgical History Surgery Date Site/Laterality Comments WRIST FRACTURE SURGERY Right CHOLECYSTECTOMY Medical History Medical History Date Comments Headache Hypertension treated by pcp Hypertension, essential 06/08/2019 Family History Medical History Relation Name Comments Diabetes Father Alzheimer's disease Mother Relation Name Status Comments Father Mother Social History Tobacco Use Types Packs/Day Years [...] on file Legal Sex Female 9:12 AM REGULATORY CONSULTANT Gender Identity Not on file Sexual Orientation Not on file Obstetrics History Last Filed Vital Signs Vital Sign Reading [...] 03/28/2024 10:50 AM CDT Plan of Treatment Health Maintenance Due Date Last Done Comments Fall Risk Assessment 1938 Hepatitis B Screening 1956 Zoster Vaccine (1 of 2) 1988 Well Visit 65+ 2003 Pneumococcal vaccine 65+ (2 of 2 - PPSV23 or PCV20) 03/24/2015 03/24/2014 Depression Screening 05/07/2020 05/07/2019, 03/27/20 19 Influenza Vaccine (#1) 2024 DTaP/Tdap/Td Vaccine (2 - Td or Tdap) 10/28/[address] [place] [address] [employer] [place] [address] [facility] HMO [place] [address] AET MEDICARE GOLD Advance Directives For more information, please contact: [phone] * Full Code (Latest Code Status on File) Date Activated Date Inactivated Comments 06/07/2019 11:04 PM 06/10/2019 5:07 PM * Full Code Date Activated Date Inactivated Comments 05/07/2019 4:14 PM 05/09/2019 8:31 PM * Full Code Date Activated Date Inactivated Comments 03/27/2019 5:35 PM 03/28/2019 10:20 PM Care Teams Marketing Automation Specialist Relationship Specialty Start Date End Date John Giang MD PCP - General 12/07/18 Mattie Myles MD Consulting Physician Neurology 03/28/19
--- OUTSIDE RECORDS SUMMARY | 2024-09-28 14:47 | XMS_ITS | Encounter Summary ---
Author Organization [facility] Address [address] [place] [address] Phone Care Team Providers Care Gas Manager Name Role Phone John Giang MD Primary Care Provider +1- [phone] Reason for Visit * Reason Comments Medication Refill Encounter Details Date Type Department Care Team (Late st Contact Info) Description 10/24/2022 [facility]ill [facility] - [place] [address] [place] [phone] John Giang MD [address] [place] [address] Medication Refill Social History Tobacco [...] Telephone Encounter - Margarita Baer RN - 10/24/2022 11:08 AM CDT Medication failed the protocol, provider to review and approve the medication order if appropriate. Requested Prescriptions Pending Prescriptions Disp Refills temazepam (RESTORIL) 15 MG Capsule [Pharmacy Med Name: TEMAZEPAM 15 MG CAPSULE] 30 Capsule 0 Sig: Take 1 Capsule by mouth nightly as needed for Sleep. Not Delegated - Off Protocol Failed - 10/24/2022 10:50 AM Failed - This refill cannot be delegated Passed - Visit with relevant provider in past 12 months or upcoming 90 days Recent Visits Date Type Provider Dept 06/30/22 Office Visit John Giang MD [facility] [place] 05/12/22 Office Visit Terri Melvin, PAC [facility] [place] 05/06/22 Office Visit Terri Melvin, PAC [facility] [place] 05/06/22 Appointment Lab, [place] [facility] [place] 01/18/22 Office Visit John Giang MD [facility] [place] Showing recent visits within past 365 days and meeting all other requirements Future Appointments No visits were found meeting these conditions. Showing future appointments within next 90 days and meeting all other requirements * Telephone Encounter - Margarita Baer RN - 10/24/2022 11:08 AM CDT Medication failed the protocol, provider to review and approve the medication order if appropriate. Requested Prescriptions Pending Prescriptions Disp Refills temazepam (RESTORIL) 15 MG Capsule [Pharmacy Med Name: TEMAZEPAM 15 MG CAPSULE] 30 Capsule 0 Sig: Take 1 Capsule by mouth nightly as needed for Sleep. Not Delegated - Off Protocol Failed - 10/24/2022 10:50 AM Failed - This refill cannot be delegated Passed - Visit with relevant provider in past 12 months or upcoming 90 days Recent Visits Date Type Provider Dept 06/30/22 Office Visit John Giang MD [facility] [place] 05/12/22 Office Visit Terri Melvin, PAC [facility] [place] 05/06/22 Office Visit Terri Melvin, PAC [facility] [place] 05/06/22 Appointment Lab, [place] [facility] [place] 01/18/22 Office Visit John Giang MD [facility] [place] Showing recent visits within past 365 days and meeting all other requirements Future Appointments No visits were found meeting these conditions. Showing future appointments within next 90 days and meeting all other requirements * Telephone Encounter - Meseret Suggs - 10/24/2022 10:49 AM CDT Medication Refill Medication: temazepam (RESTORIL) [facility]acy: [facility] [place] documented in this encounter Plan of Treatment Upcoming Encounters Date Type Department Care Team (Late st Contact Info) Description 10/10/2024 1:45 PM LANGUAGE ARTS TEACHER Office Visit [facility] - [facility] [address] [place] [address] John Giang MD [address] [place] [address] documented as of this encounter Visit Diagnoses Diagnosis Primary insomnia Persistent disorder of initiating or maintaining sleep documented in this encounter Additional Health Concerns Assessment Noted Time PHQ-9 Depression Total Score: 0 08/24/19 21 1:00 PM LANGUAGE ARTS TEACHER documented as of this encounter Care Teams Gas Manager Relationship Specialty Start Date End Date John Giang MD [address] [place] [address] PCP - General Internal Medicine 09/26/19 documented as of this encounter
--- OUTSIDE RECORDS SUMMARY | 2024-09-28 14:47 | XMS_ITS | Encounter Summary ---
Author Organization [facility] Address [address] [place] [address] Phone Care Team Providers Care Expert Witness Name Role Phone John Giang MD Primary Care Provider Reason for Visit * Reason Comments Medication Refill Encounter Details Date Type Department Care Team (Late st Contact Info) Description 06/24/2020 Refill [facility] - [place] [address] [place] [phone] John Giang MD [address] [facility] [place] [place] [address] Medication Refill Social History Tobacco Use Types Packs/Day Years Used Date Smoking Tobacco: Never Smokeless Tobacco: Never Comments No Sex and Gender Information Value Date Recorded Sex Assigned at Not on file Legal Sex Female 12:34 AM CDT Gender Identity Not on file Sexual Orientation Not on file COVID-19 Exposure Response Date Recorded In the last month, have you been in contact with someone who was confirmed or suspected to have Coronavirus / COVID-19? No / Unsure 06/01/2020 2:24 PM CDT documented as of this encounter Miscellaneous Notes * Telephone Encounter - Ileana Tapia RN - 06/24/2020 9:28 AM CST Please review and sign. IST AGENT documented in this encounter Plan of Treatment Upcoming Encounters Date Type Department Care Team (Late st Contact Info) Description 10/10/2024 1:45 PM TOURIST AGENT Office Visit [facility] - [facility] [address] [place] [address] John Giang MD [address] [place] [address] documented as of this encounter Visit Diagnoses Not on filedocumented in this encounter Additional Health Concerns Infection Onset Date Last Indicated Resolved Time COVID - 19 2022 05/06/2022 05/16/2022 12:1 6 AM CDT Assessment Noted Time PHQ-9 Depression Total Score: 0 06/01/20 20 2:00 PM CDT documented as of this encounter Care Teams Expert Witness Relationship Specialty Start Date End Date John Giang MD [address] [place] [address] PCP - General Internal Medicine 09/26/19 documented as of this encounter
--- OUTSIDE RECORDS SUMMARY | 2024-09-28 14:47 | XMS_ITS | Encounter Summary ---
Author Organization [facility] Address [address] [place] [address] Phone Care Team Providers Care Insurance Healthcare Representative Name Role Phone John Giang MD Primary Care Provider [phone]- [phone] Reason for Visit * Reason Comments Medication Refill Encounter Details Date Type Department Care Team (Late st Contact Info) Description 07/29/2020 Refill [facility] - [place] [address] [place] [phone] John Giang MD [address] [place] [address] Medication Refill Social History Tobacco [...] have Coronavirus / COVID-19? No / Unsure 07/19/2020 3:24 AM REGIONAL VICE PRESIDENT SURGICAL SALES documented as of this encounter Miscellaneous Notes * Telephone Encounter - Ileana Tapia RN - 07/29/2020 7:59 AM CST Please review and sign. ONAL VICE PRESIDENT SURGICAL SALES documented in this encounter Plan of Treatment Upcoming Encounters Date Type Department Care Team (Late st Contact Info) Description 10/10/2024 1:45 PM REGIONAL VICE PRESIDENT SURGICAL SALES Office Visit [facility] - Internal Medicine [facility] [address] [place] [address] John Giang MD [address] [place] [address] documented as of this encounter Visit Diagnoses Not on filedocumented in this encounter Additional Health Concerns Infection Onset Date Last Indicated Resolved Time COVID - 19 2022 05/06/2022 05/16/2022 12:1 6 AM CDT Assessment Noted Time PHQ-9 Depression Total Score: 0 06/01/20 20 2:00 PM CDT documented as of this encounter Care Teams Insurance Healthcare Representative Relationship Specialty Start Date End Date John Giang MD [address] [place] [address] PCP - General Internal Medicine 09/26/19 documented as of this encounter
--- OUTSIDE RECORDS SUMMARY | 2024-09-28 14:47 | XMS_ITS | Encounter Summary ---
Author Organization [facility] Address [address] [place] [address] Phone Care Team Providers Care Forestry Worker Name Role Phone John Giang MD Primary Care Provider +1- [phone] Reason for Visit * Reason Comments Medication Refill Encounter Details Date Type Department Care Team (Late Contact Info) Description 04/29/2022 Refill [facility] - [place] [address] [place] [phone] John Giang MD [address] [address] Medication Refill Social History Tobacco [...] Telephone Encounter - Margarita Baer RN - 04/29/2022 12:45 PM CDT duplicate documented in this encounter Plan of Treatment Upcoming Encounters Date Type Department Care Team (Late Contact Info) Description 10/10/2024 1:45 PM EXECUTIVE RECRUITER Office Visit [facility] [address] [place] [address] John Giang MD [address] [place] [address] documented as of this encounter Visit Diagnoses Diagnosis Primary insomnia Persistent disorder of initiating or maintaining sleep documented in this encounter Additional Health Concerns Infection Onset Date Last Indicated Resolved Time COVID - 19 2022 05/06/2022 05/16/2022 12:1 6 AM CDT Assessment Noted Time PHQ-9 Depression Total Score: 0 08/24/19 21 1:00 PM EXECUTIVE RECRUITER documented as of this encounter Care Teams Forestry Worker Relationship Specialty Start Date End Date John Giang MD [address] [place] [address] PCP - General Internal Medicine 09/26/19 documented as of this encounter
--- OUTSIDE RECORDS SUMMARY | 2024-09-28 14:47 | XMS_ITS | Encounter Summary ---
Author Organization [facility] Address [address] [place] [address] Phone Care Team Providers Care Physical Therapy Resident Name Role Phone John Giang MD Primary Care Provider +1- [phone] Reason for Visit * Reason Comments Medication Refill Encounter Details Date Type Department Care Team ([facility] Contact Info) Description 06/13/2023 Refill [facility] Internal Medicine [facility] [address] [place] [address] John Giang MD [address] [place] [address] Medication Refill Social History Tobacco [...] Upcoming Encounters Date Type Department Care Team ([facility] Contact Info) Description 10/10/2024 1:45 PM ISSUE CLERK Office Visit [facility] Internal [facility] [address] [place] [address] John Giang MD [address] [place] [address] documented as of this encounter Visit Diagnoses Diagnosis Chronic pain of both shoulders Pain in joint, shoulder region documented in this encounter Additional Health Concerns Assessment Noted Time PHQ-9 Depression Total Score: 0 08/24/19 21 1:00 PM ISSUE CLERK documented as of this encounter Care Teams Physical Therapy Resident Relationship Specialty Start Date End Date John Giang MD [address] [place] [address] PCP - General Internal Medicine 09/26/19 documented as of this encounter
--- OUTSIDE RECORDS SUMMARY | 2024-09-28 14:48 | XMS_ITS | Encounter Summary ---
Author Organization [facility] Address [address] [place] [address] Phone Care Team Providers Care Block Tester Name Role Phone John Giang MD Primary Care Provider +1- [phone] Reason for Visit * Reason Comments Medication Refill Encounter Details Date Type Department Care Team (Late st Contact Info) Description 12/08/2023 Refill [facility] - [place] [address] [place] [phone] John Giang MD [address] [facility] [facility] [place] [address] Medication Refill Social History Tobacco Use Types Packs/Day Years Used Date Smoking Tobacco: Never Passive Smoke Exposure: Never Smokeless Tobacco: Never Alcohol Use Standard Drinks/Week Comments Never 0 (1 standard drink = 0.6 oz pur e alcohol) [facility] Utilities Answer Date Recorded In the past [address] [facility], [employer], oil, or water [employer] threatened to shut off services in your home? No 10/19/2023 Social Connection and Isolat ion Panel [NHANES] Answer Date Recorded In a typical week, how many times do you talk on the phone with family, friends, or neighbors? More than three times a week 10/19/2023 How often do you get togethe r with friends or relatives? More than three times a week 10/19/2023 How often do you attend chur or nondenominational services? Never 10/19/2023 Do you belong to any clubs o r organizations such as evangelical groups, unions, fraternal or athletic groups, or school groups? No 10/19/2023 How often do you attend meet ings of the clubs or organizations you belong to? Never 10/19/2023 Are you , , di vorced, , never , or living with a partner? 10/19/2023 AUDIT-C Answer Date Recorded Q1: How often do you have a drink containing alcohol? Never 10/19/2023 Q2: How many drinks containi ng alcohol do you have on a typical day when you are drinking? Patient does not drink Q3: How often do you have si x or more drinks on one occasion? Never 10/19/2023 Overall Financial Resource Strain (CARDIA) Answe r Date Recorded How hard is it for you to pa y for the very basics like food, housing, medical care, and heating? Not hard at all 10/19/2023 PHQ-2 Answer Date Recorded Total Score - Questions 1-9 0 02/2024 [facility] ional Health - Occupational Stress Questionnaire Answer Date Recorded Do you feel stress - tense, restless, nervous, or anxious, or unable to sleep at night because your mind is troubled all the time - these days? Not at all 10/19/2023 Exercise Vital Sign Answer Date Recorde d On average, how many days pe r week do you engage in moderate to strenuous exercise (like a brisk walk)? 0 days 10/19/2023 On average, how many minutes do you engage in exercise at this level? 0 min 10/19/2023 Hunger Vital Sign Answer Date Recorded Within the past 12 months, y ou worried that your food would run out before you got the money to buy more. Never true 10/19/19 24 Within the past 12 months, t he food you bought just didn't last and you didn't have money to get more. Never true 10/19/2023 PRAPARE - Transportation Answer Date Re corded In the past 12 months, has l ack of transportation kept you from medical appointments or from getting medications? No 02/2024 In the past 12 months, has l ack of transportation kept you from meetings, work, or from getting things needed for daily living? No 10/19/2023 Housing Stability Vital Sign Answer David e Recorded In the last 12 months, was t here a time when you were not able to pay the mortgage or rent on time? No 10/19/2023 In the last 12 months, how many places have you lived? 1 10/19/2023 In the last 12 months, was t here a time when you did not have a steady place to sleep or slept in a detention (including now)? No 10/19/2023 Education Answer Date Recorded What is the [...] Telephone Encounter - Margarita Baer RN - 12/08/2023 8:57 AM CDT Medication failed the protocol, provider to review and approve the medication order if appropriate. Requested Prescriptions Pending Prescriptions Disp Refills temazepam (RESTORIL) 15 MG Capsule [Pharmacy Med Name: TEMAZEPAM 15MG CAPSULE] 30 Capsule 1 Sig: Take 1 Capsule by mouth nightly as needed for Sleep. Not Delegated - Off Protocol Failed - 12/08/2023 8:40 AM Failed - This refill cannot be delegated Passed - Visit with relevant provider in past 12 months or upcoming 90 days Recent Visits Date Type Provider Dept 10/19/23 [facility]23 Office Visit John Giang MD [facility] 06/30/23 Office Visit Terri Melvin PAC [facility] 04/13/23 Office Visit John Giang MD [facility] 12/22/22 Office Visit John Giang MD [facility] Showing recent visits within past 365 days and meeting all other requirements Future Appointments Date Type Provider Dept 01/30/24 Appointment [facility] Showing future appointments within next 90 days and meeting all other requirements documented in this encounter Plan of Treatment Upcoming Encounters Date Type Department Care Team (Late st Contact Info) Description 10/10/2024 1:45 PM PROGRAM AIDE Office Visit [facility] - Internal Medicine [place] [address] [place] [address] John Giang MD [address] [place] [address] documented as of this encounter Visit Diagnoses Diagnosis Primary insomnia Persistent disorder of initiating or maintaining sleep documented in this encounter Additional Health Concerns Assessment Noted Time PHQ-9 Depression Total Score: 0 10/19/19 24 2:03 PM PROGRAM AIDE documented as of this encounter Care Teams Block Tester Relationship Specialty Start Date End Date John Giang MD [address] [place] [address] PCP - General Internal Medicine 09/26/19 documented as of this encounter
--- OUTSIDE RECORDS SUMMARY | 2024-09-28 14:48 | XMS_ITS | Encounter Summary ---
Author Organization [facility] Address [address] [place] [address] Phone Care Team Providers Care Inside Wireman Name Role Phone John Giang MD Primary Care Provider +1- [phone] Reason for Visit * Reason Comments Medication Refill Encounter Details Date Type Department Care Team (Late st Contact Info) Description 02/29/2024 Refill [facility] - [place] [address] [place] [phone] Terri Melvin, [facility] [address] [facility] [place] [address] Medication Refill Social History Tobacco Use Types Packs/Day Years Used Date Smoking Tobacco: Never Passive Smoke Exposure: Never Smokeless Tobacco: Never Alcohol Use Standard Drinks/Week Comments Never 0 (1 standard drink = 0.6 oz pur e alcohol) [facility] Utilities Answer Date Recorded In the past 12 months has [employer], gas, oil, or water [employer] threatened to shut off services in your [...] How often do you attend chur or hinduism services? Never 10/19/2023 Do you belong to any clubs o r organizations such as adventism groups, unions, fraternal or athletic groups, or [...] Total Score - Questions 1-9 0 02/2024 [facility] of Occupat ional Health - Occupational Stress [...] place to sleep or slept in a [place] facility (including now)? No 10/19/2023 Education Answer Date [...] st Contact Info) Description 10/10/2024 1:45 PM LACE CUTTER Office Visit [facility] - Internal Medicine [facility] [address] [place] [address] John Giang MD [address] [place] [address] documented as of this encounter Visit Diagnoses Diagnosis Primary insomnia Persistent disorder of initiating or maintaining sleep documented in this encounter Additional Health Concerns Assessment Noted Time PHQ-9 Depression Total Score: 0 10/19/19 24 2:03 PM LACE CUTTER documented as of this encounter Care Teams Inside Wireman Relationship Specialty Start Date End Date John Giang MD [address] [place] [address] PCP - General Internal Medicine 09/26/19 documented as of this encounter
--- OUTSIDE RECORDS SUMMARY | 2024-09-28 14:48 | XMS_ITS | Encounter Summary ---
Author Organization [facility] Address [address] [place] [address] Phone Care Team Providers Care Compressor Operator Portable Name Role Phone John Giang MD Primary Care Provider +1- [phone] Reason for Visit * Reason Comments Medication Refill Encounter Details Date Type Department Care Team (Late st Contact Info) Description 01/25/2021 Refill [facility] - [place] [address] [place] [phone] John Giang MD [address] [place] [address] Medication Refill Social History Tobacco [...] have Coronavirus / COVID-19? No / Unsure 01/21/2021 8:22 AM CDT documented as of this encounter Miscellaneous Notes * Telephone Encounter - Ileana Tapia RN - 01/25/2021 10:29 AM CDT Please review and sign. documented in this encounter Plan of Treatment Upcoming Encounters Date Type Department Care Team (Late st Contact Info) Description 10/10/2024 1:45 PM DISTRIBUTION CENTER ASSOCIATE Office Visit [facility] - Internal Medicine [place] [address] [place] [address] John Giang MD [address] [place] [address] documented as of this encounter Visit Diagnoses Not on filedocumented in this encounter Additional Health Concerns Infection Onset Date Last Indicated Resolved Time COVID - 19 2022 05/06/2022 05/16/2022 12:1 6 AM CDT Assessment Noted Time PHQ-9 Depression Total Score: 0 08/24/19 21 1:00 PM DISTRIBUTION CENTER ASSOCIATE documented as of this encounter Care Teams Compressor Operator Portable Relationship Specialty Start Date End Date John Giang MD [address] [place] [address] PCP - General Internal Medicine 09/26/19 documented as of this encounter
--- OUTSIDE RECORDS SUMMARY | 2024-09-28 14:48 | XMS_ITS | Encounter Summary ---
Author Organization [facility] Address [address] [place] [address] Phone Care Team Providers Care Head Of Operation And Logistics Name Role Phone John Giang MD Primary Care Provider +1- [phone] Reason for Visit * Reason Comments Medication Refill Encounter Details Date Type Department Care Team ([facility] Contact Info) Description 10/04/2023 Refill [facility] Internal Medicine [facility] [address] [place] [address] John Giang MD [address] [place] [address] Medication Refill Social History Tobacco [...] Upcoming Encounters Date Type Department Care Team ([facility] Contact Info) Description 10/10/2024 1:45 PM ROOFING MACHINE TENDER Office Visit [facility] Internal [facility] [address] [place] [address] John Giang MD [address] [place] [address] documented as of this encounter Visit Diagnoses Diagnosis Chronic pain of both shoulders Pain in joint, shoulder region documented in this encounter Additional Health Concerns Assessment Noted Time PHQ-9 Depression Total Score: 0 08/24/19 21 1:00 PM ROOFING MACHINE TENDER documented as of this encounter Care Teams Head Of Operation And Logistics Relationship Specialty Start Date End Date John Giang MD [address] [place] [address] PCP - General Internal Medicine 09/26/19 documented as of this encounter
--- OUTSIDE RECORDS SUMMARY | 2024-09-28 14:48 | XMS_ITS | Clinical Summary ---
Author Organization [facility] [place] Address [address] [place] [address] Phone Care Team Providers Care Warp Tier Name Role Phone John Giang MD Primary Care Provider Allergies Active Allergy Reactions Criticality Noted Date Comments Sulfa Antibiotics Hives 07/02/2020 Medications acetaminophen (TYLENOL) 500 MG Tablet Take 1,000 mg by mouth every 8 hours as needed for Moderate or more severe pain. Active IBUPROFEN PO Take 400 mg by mouth every 6 hours as needed. Active amLODIPine (NORVASC) 5 MG TabletIndicatio ns:Essential hypertension, benign Take 1 Tablet by mouth daily. 30 Tablet 5 02/29/20 24 Active fluticasone (FLONASE) 50 MCG/ACT SuspensionIndic ations:Allergic rhinitis, unspecified seasonality, unspecified trigger 1 SPRAY BY NASAL ROUTE IN THE MORNING AND AT BEDTIME. USE IN EACH NOSTRIL DIRECTED. 16 mL 03/25/20 24 Active omeprazole (PriLOSEC) 20 MG CAPSULE DELAYED RELEASE Take 20 mg by mouth daily. Active temazepam (RESTORIL) 15 MG CapsuleIndicati ons:Primary insomnia Take 1 Capsule by mouth nightly as needed for Sleep. 30 Capsule 09/07/19 25 Active gabapentin (NEURONTIN) 300 MG Capsule Take 1 Capsule by mouth 2 times daily. 60 Capsule 5 09/12/19 25 Active traMADol (ULTRAM) 50 MG TabletIndicatio ns:Chronic pain of both shoulders Take 1 Tablet by mouth 2 times daily as needed for Moderate or more severe pain. 60 Tablet 09/16/19 25 Active gabapentin (NEURONTIN) 300 MG Capsule TAKE 1 CAPSULE BY MOUTH EVERY DAY IN THE MORNING AND AT BEDTIME 60 Capsule 5 10/05/19 24 025 Discontinued traMADol (ULTRAM) 50 MG TabletIndicatio ns:Chronic pain of both shoulders TAKE 1 TABLET BY MOUTH 2 TIMES DAILY NEEDED FOR MODERATE OR MORE SEVERE PAIN. 60 Tablet 05/28/20 24 025 Discontinued(Re order) temazepam (RESTORIL) 15 MG CapsuleIndicati ons:Primary insomnia Take 1 Capsule by mouth nightly as needed for Sleep. 15 Capsule 08/23/19 25 025 Discontinued(Re order) Active Problems Problem Noted Date Diagnosed Date Primary osteoarthritis of both hips 01/30/2024 Allergic rhinitis 01/30/2024 Idiopathic peripheral neuropathy 10/19/2023 Generalized anxiety disorder 06/22/2021 GERD without esophagitis 03/22/2021 Chronic pain of both shoulders 06/19/2020 Essential hypertension, benign 03/12/2019 Primary generalized hypertrophic osteoarthrosis 01/31/2011 Overview (04/13/2020): SPINE/HIP Primary insomnia 01/31/2011 Resolved Problems Problem Noted Date Diagnosed Date Resolved Date Concussion with no loss of consciousness 10/31/2022 07/20/2023 Microscopic hematuria 03/22/20212020 Encounters Date Type Department Care Team Description 09/16/2024 Refill [facility] Internal [facility] [address] [place] [address] John Giang MD 09/16/2024 Refill [facility] [address] [place] [address] Terri Melvin PAC Medication Refill 09/12/2024 Refill [facility] [address] [place] [address] John Giang MD Medication Refill 09/05/2024 Refill [facility] [address] [place] [address] John Giang MD Medication Refill 09/05/2024 Telephone [facility] [address] [place] [address] oJhn Giang MD Medication Refill 08/23/2024 [facility] [address] [place] [address] John Giang MD Medication Refill 08/23/2024 [facility] [address] [place] [address] John Giang MD Medication Refill from Last 3 Months Immunizations Immunization Administration Dates Next Due Pneumococcal Vaccine - 13 Valent 03/24/2014 Family History Relation Name Status Comments Father Mother Social History Tobacco Use Types Packs/Day Years Used Date Smoking Tobacco: Never Passive Smoke Exposure: Never Smokeless Tobacco: Never Tobacco Cessation:Counseling Given: No Alcohol Use Standard Drinks/Week Comments Never 0 (1 standard drink = 0.6 oz pur e alcohol) [facility] Utilities Answer Date Recorded In the past 12 months has [employer], gas, oil, or water [employer]) threatened to shut off services in your [...] 10/19/2023 How often do you attend chur ch or congregation services? Never 10/19/2023 Do you belong to any clubs o r organizations such as yazdanism groups, unions, fraternal or athletic groups, or [...] Total Score - Questions 1-9 0 02/2024 [facility] - Occupational Stress Questionnaire Answer Date Recorded [...] place to sleep or slept in a fdc (including now)? No 10/19/2023 Education Answer Date [...] Sign Reading Time Taken Comments Blood Pressure 140/64 06/25/2024 2:05 PM FRUIT TRIMMER Pulse 84 06/25/2024 2:05 PM FRUIT TRIMMER Temperature 36.4 C (97.5 F) 06/25/2024 2:05 PM FRUIT TRIMMER Respiratory Rate 17 02/03/2024 7:41 PM CDT Oxygen Saturation 98% 06/25/2024 2:05 PM FRUIT TRIMMER Inhaled Oxygen Concentration - - Weight 62.1 kg (137 lb) 06/25/2024 2:05 PM FRUIT TRIMMER Height 167.6 cm (5' 6 ) 06/25/2024 2:05 PM FRUIT TRIMMER Body Mass Index 22.11 06/25/2024 2:05 PM FRUIT TRIMMER Plan of Treatment Upcoming Encounters Date Type Department Care Team (Late st Contact Info) Description 10/10/2024 1:45 PM FRUIT TRIMMER Office Visit [facility] [place] [address] [place] [phone] John Giang MD [address] [place] [address] Health Maintenance Due Date Last Done Comments DEXA Bone Density 1940 Hepatitis C Virus (HCV) Screening 1940 Pneumococcal Immunization (5 0+ years) Discontinued 03/24/2014 Pneumococcal Immunization Combined Discontinued 03/24/2014 DTaP/Tdap/Td Immunization Discontinued 10/28/2022 TdaP Immunization Completed 10/28/2022 Hepatitis B Immunization Aged Out No longer eligible based on patient's age to complete this topic Influenza Immunization Discontinued Meningococcal Immunization (ACWY) Aged Out No longer eligible based on patient's age to complete this topic Respiratory Syncytial Virus (RSV) Immunization (Adult) Discontinued Rotavirus Immunization Aged Out No lo nger eligible based on patient's age to complete this topic SARS-COV-2 Immunization Discontinued Zoster Immunization Dis[place] [address] MEDICARE C AETNA Care Teams Warp Tier Relationship Specialty Start Date End Date John Giang MD [address] [place] [address] PCP - General Internal Medicine 09/26/19
--- OUTSIDE RECORDS SUMMARY | 2024-09-28 14:48 | XMS_ITS | Encounter Summary ---
Author Organization [facility] Address [address] [place] [address] Phone Care Team Providers Care Wheel Setter Name Role Phone John Giang MD Primary Care Provider [phone]- [phone] Reason for Visit * Reason Comments Medication Refill Encounter Details Date Type Department Care Team (Late st Contact Info) Description 12/13/2023 [facility]ill [facility] [place] [address] [place] [phone] John Giang MD [address] [facility] [place] [address] Medication Refill Social History Tobacco Use Types Packs/Day Years Used Date Smoking Tobacco: Never Passive Smoke Exposure: Never Smokeless Tobacco: Never Alcohol Use Standard Drinks/Week Comments Never 0 (1 standard drink = 0.6 oz pur e alcohol) [facility] Utilities Answer Date Recorded In the past 12 months has [employer], [employer], oil, or water [employer] threatened to shut off services in your [...] How often do you attend chur or christianity services? Never 10/19/2023 Do you belong to any clubs o r organizations such as nondenominational groups, unions, fraternal or athletic groups, or [...] Total Score - Questions 1-9 0 02/2024 [facility]at ional Health - Occupational Stress [...] place to sleep or slept in a senior care (including now)? No 10/19/2023 Education Answer Date [...] Telephone Encounter - Margarita Baer RN - 12/13/2023 11:11 AM CDT Medication failed the protocol, provider to review and approve the medication order if appropriate. Requested Prescriptions Pending Prescriptions Disp Refills traMADol (ULTRAM) 50 MG Tablet [Pharmacy Med Name: TRAMADOL HCL 50 MG TABLET] 28 Tablet 0 Sig: TAKE 1 TABLET BY MOUTH 2 TIMES DAILY NEEDED FOR MODERATE OR MORE SEVERE PAIN. Not Delegated - Opioid Agonists Protocol Failed - 12/13/2023 10:42 AM Failed - This refill cannot be delegated Passed - Visit with relevant provider in past 12 months or upcoming 90 days Recent Visits Date Type Provider Dept 10/19/23 Office Visit John Giang MD [facility] 07/20/23 Office Visit John Giang MD [facility] 06/30/23 Office Visit Terri Melvin PAC [facility] 04/13/23 Office Visit John Giang MD [facility] 12/22/22 Office Visit John Giang MD [facility] Showing recent visits within past 365 days and meeting all other requirements Future Appointments Date Type Provider Dept 01/30/24 Appointment John Giang MD [facility] Showing future appointments within next 90 days and meeting all other requirements documented in this encounter Plan of Treatment Upcoming Encounters Date Type Department Care Team (Late st Contact Info) Description 10/10/2024 1:45 PM PUBLIC DEFENDER Office Visit [facility] [place] [address] [place] [address] John Giang MD [address] [place] [address] documented as of this encounter Visit Diagnoses Diagnosis Chronic pain of both shoulders Pain in joint, shoulder region documented in this encounter Additional Health Concerns Assessment Noted Time PHQ-9 Depression Total Score: 0 10/19/19 24 2:03 PM PUBLIC DEFENDER documented as of this encounter Care Teams Wheel Setter Relationship Specialty Start Date End Date John Giang MD [address] [place] [address] PCP - General Internal Medicine 09/26/19 documented as of this encounter
--- OUTSIDE RECORDS SUMMARY | 2024-09-28 14:48 | XMS_ITS | Encounter Summary ---
Author Organization [facility] Address [address] [place] [address] Phone Care Team Providers Care Tax Economist Name Role Phone John Giang MD Primary Care Provider [phone]- [phone] Reason for Visit * Reason Comments Medication Refill Encounter Details Date Type Department Care Team (Late st Contact Info) Description 08/23/2024 [facility]ill [facility] [place] [address] [place] [phone] John Giang MD [address] [facility] [place] [address] Medication Refill Social History Tobacco Use Types Packs/Day Years Used Date Smoking Tobacco: Never Passive Smoke Exposure: Never Smokeless Tobacco: Never Alcohol Use Standard Drinks/Week Comments Never 0 (1 standard drink = 0.6 oz pur e alcohol) [facility] Utilities Answer Date Recorded In the past 12 months has [employer], [employer], oil, or water [employer] threatened to shut off services in your [...] How often do you attend chur or congregational services? Never 10/19/2023 Do you belong to any clubs o r organizations such as religion groups, unions, fraternal or athletic groups, or [...] Total Score - Questions 1-9 0 02/2024 [facility] of Occupat ional Health - Occupational [...] place to sleep or slept in a assisted (including now)? No 10/19/2023 Education Answer Date [...] st Contact Info) Description 10/10/2024 1:45 PM CARVER AND CHECKERER SPECIALS Office Visit [facility] [address] [place] [address] John Giang MD [address] [place] [address] documented as of this encounter Visit Diagnoses Diagnosis Primary insomnia Persistent disorder of initiating or maintaining sleep documented in this encounter Additional Health Concerns Assessment Noted Time PHQ-9 Depression Total Score: 0 10/19/19 24 2:03 PM CARVER AND CHECKERER SPECIALS documented as of this encounter Care Teams Tax Economist Relationship Specialty Start Date End Date John Giang MD [address] [place] [address] PCP - General Internal Medicine 09/26/19 documented as of this encounter
--- OUTSIDE RECORDS SUMMARY | 2024-09-28 14:48 | XMS_ITS | Encounter Summary ---
Author Organization [facility] Address [address] [place] [address] Phone Care Team Providers Care Rolls Baker Name Role Phone John Giang MD Primary Care Provider [phone]- [phone] Reason for Visit * Reason Comments Medication Refill Encounter Details Date Type Department Care Team (Late st Contact Info) Description 08/04/2023 [facility]ill [facility] [place] [address] [place] [phone] John Giang MD [address] [facility] [place] [address] Medication Refill Social History Tobacco [...] Telephone Encounter - Margarita Baer RN - 08/04/2023 10:05 AM CST Medication failed the protocol, provider to review and approve the medication order if appropriate. Requested Prescriptions Pending Prescriptions Disp Refills traMADol (ULTRAM) 50 MG Tablet [Pharmacy Med Name: TRAMADOL HCL 50 MG TABLET] 28 Tablet 0 Sig: TAKE 1 TABLET BY MOUTH 2 TIMES DAILY NEEDED FOR MODERATE OR MORE SEVERE PAIN. Not Delegated - Opioid Agonists Protocol Failed - 08/04/2023 10:02 AM Failed - This refill cannot be delegated Passed - Visit with relevant provider in past 12 months or upcoming 90 days Recent Visits Date Type Provider Dept 07/20/23 Office Visit John Giang MD [facility] 06/30/23 Office Visit Terri Melvin, PAC [facility] [place] 04/13/23 Office Visit John Giang MD [facility] 12/22/22 Office Visit John Giang MD [facility] 11/21/22 Office Visit John Giang MD [facility] [place] 11/07/22 Office Visit John Giang MD [facility] [place] 10/31/22 Office Visit Terri Melvin, [facility] [place] Showing recent visits within past 365 days and meeting all other requirements Future Appointments Date Type Provider Dept 10/19/23 Appointment John Giang MD [facility] [place] Showing future appointments within next 90 days and meeting all other requirements ERVATION BIOLOGY PROFESSOR documented in this encounter Plan of Treatment Upcoming Encounters Date Type Department Care Team (Late st Contact Info) Description 10/10/2024 1:45 PM CONSERVATION BIOLOGY PROFESSOR [facility] [place] [address] [place] [address] John Giang MD [address] [place] [address] documented as of this encounter Visit Diagnoses Diagnosis Chronic pain of both shoulders Pain in joint, shoulder region documented in this encounter Additional Health Concerns Assessment Noted Time PHQ-9 Depression Total Score: 0 08/24/19 21 1:00 PM CONSERVATION BIOLOGY PROFESSOR documented as of this encounter Care Teams Rolls Baker Relationship Specialty Start Date End Date John Giang MD [address] [place] [address] PCP - General Internal Medicine 09/26/19 documented as of this encounter
--- OUTSIDE RECORDS SUMMARY | 2024-09-28 14:48 | XMS_ITS | Encounter Summary ---
Author Organization [facility] Address [address] [place] [address] Phone Care Team Providers Care Fence Post Driver Name Role Phone John Giang MD Primary Care Provider Reason for Visit * Reason Comments Medication Refill Encounter Details Date Type Department Care Team (Late Contact Info) Description 08/25/2022 Refill [facility] [place] [address] [place] [phone] John Giang MD [address] [place] [address] Medication Refill Social History Tobacco [...] Telephone Encounter - Margarita Baer RN - 08/25/2022 4:27 PM CST [facility] out of medication, Send to [facility] EY BREEDER documented in this encounter Plan of Treatment Upcoming Encounters Date Type Department Care Team (Late Contact Info) Description 10/10/2024 1:45 PM MONKEY BREEDER [facility] [place] [address] [place] [address] John Giang MD [address] [place] [address] documented as of this encounter Visit Diagnoses Diagnosis Primary insomnia Persistent disorder of initiating or maintaining sleep documented in this encounter Additional Health Concerns Assessment Noted Time PHQ-9 Depression Total Score: 0 08/24/19 21 1:00 PM MONKEY BREEDER documented as of this encounter Care Teams Fence Post Driver Relationship Specialty Start Date End Date John Giang MD [address] [place] [address] PCP - General Internal Medicine 09/26/19 documented as of this encounter
--- OUTSIDE RECORDS SUMMARY | 2024-09-28 14:48 | XMS_ITS | Encounter Summary ---
Author Organization [facility] Address [address] [place] [address] Phone Care Team Providers Care Compensation Business Partner Name Role Phone John Giang MD Primary Care Provider +1- [phone] Reason for Visit * Reason Comments Medication Refill Encounter Details Date Type Department Care Team (Late Contact Info) Description 12/08/2020 Refill [facility] - [place] [address] [place] [phone] John Giang MD [address] [facility] [place] [address] Medication Refill Social History Tobacco [...] Telephone Encounter - Ileana Tapia RN - 12/08/2020 10:50 AM CDT Please review and sign. documented in this encounter Plan of Treatment Upcoming Encounters Date Type Department Care Team (Late Contact Info) Description 10/10/2024 1:45 PM FISHER MUSSEL Office Visit [facility] [address] [place] [address] John Giang MD [address] [place] [address] documented as of this encounter Visit Diagnoses Not on filedocumented in this encounter Additional Health Concerns Infection Onset Date Last Indicated Resolved Time COVID - 19 2022 05/06/2022 05/16/2022 12:1 6 AM CDT Assessment Noted Time PHQ-9 Depression Total Score: 0 08/24/19 21 1:00 PM FISHER MUSSEL documented as of this encounter Care Teams Compensation Business Partner Relationship Specialty Start Date End Date John Giang MD [address] [place] [address] PCP - General Internal Medicine 09/26/19 documented as of this encounter
--- OUTSIDE RECORDS SUMMARY | 2024-09-28 14:48 | XMS_ITS | Encounter Summary ---
Author Organization [facility] Address [address] [place] [address] Phone Care Team Providers Care Tool Maker Bench Name Role Phone John Giang MD Primary Care Provider +1- [phone] Reason for Visit * Reason Comments Medication Refill Encounter Details Date Type Department Care Team (Late st Contact Info) Description 09/16/2024 Refill [facility] [place] [address] [place] [address] Terri Melvin, [facility] [address] [facility] [place] [address] Medication Refill Social History Tobacco Use Types Packs/Day Years Used Date Smoking Tobacco: Never Passive Smoke Exposure: Never Smokeless Tobacco: Never Alcohol Use Standard Drinks/Week Comments Never 0 (1 standard drink = 0.6 oz pur e alcohol) [facility] Utilities Answer Date Recorded In the past 12 months has [employer], gas, oil, or water [employer] threatened to shut off services in your [...] How often do you attend chur or taoist services? Never 10/19/2023 Do you belong to any clubs o r organizations such as taoist groups, unions, fraternal or athletic groups, or [...] Total Score - Questions 1-9 0 02/2024 [facility] of Occupat ional Health - Occupational [...] place to sleep or slept in a retirement (including now)? No 10/19/2023 Education Answer Date [...] st Contact Info) Description 10/10/2024 1:45 PM PRESERVATIONIST Office Visit [facility] [address] [place] [address] John Giang MD [address] [place] [address] documented as of this encounter Visit Diagnoses Diagnosis Chronic pain of both shoulders Pain in joint, shoulder region documented in this encounter Additional Health Concerns Assessment Noted Time PHQ-9 Depression Total Score: 0 10/19/19 24 2:03 PM PRESERVATIONIST documented as of this encounter Care Teams Tool Maker Bench Relationship Specialty Start Date End Date John Giang MD [address] [place] [address] PCP - General Internal Medicine 09/26/19 documented as of this encounter
--- OUTSIDE RECORDS SUMMARY | 2024-09-28 14:48 | XMS_ITS | Encounter Summary ---
Author Organization [facility] Address [address] [place] [address] Phone Care Team Providers Care Residential Interior Designer Name Role Phone John Giang MD Primary Care Provider +1- [phone] Reason for Visit * Reason Comments Medication Refill Encounter Details Date Type Department Care Team (Late Contact Info) Description 10/28/2020 Refill [facility] [place] [address] [place] [phone] John Giang MD [address] [facility] [place] [address] Medication Refill Social History Tobacco [...] Telephone Encounter - Ileana Tapia RN - 10/28/2020 8:38 AM CDT Please review and sign. documented in this encounter Plan of Treatment Upcoming Encounters Date Type Department Care Team (Late Contact Info) Description 10/10/2024 1:45 PM LINER HELPER Office Visit [facility] [address] [place] [address] John Giang MD [address] [place] [address] documented as of this encounter Visit Diagnoses Not on filedocumented in this encounter Additional Health Concerns Infection Onset Date Last Indicated Resolved Time COVID - 19 2022 05/06/2022 05/16/2022 12:1 6 AM CDT Assessment Noted Time PHQ-9 Depression Total Score: 0 08/24/19 21 1:00 PM LINER HELPER documented as of this encounter Care Teams Residential Interior Designer Relationship Specialty Start Date End Date John Giang MD [address] [place] [address] PCP - General Internal Medicine 09/26/19 documented as of this encounter
--- OUTSIDE RECORDS SUMMARY | 2024-09-28 14:48 | XMS_ITS | Encounter Summary ---
Author Organization [facility] Address [address] [place] [address] Phone Care Team Providers Care Correctional Medicine Physician Name Role Phone John Giang MD Primary Care Provider [phone]- [phone] Reason for Visit * Reason Comments Medication Refill Encounter Details Date Type Department Care Team (Late st Contact Info) Description 01/25/2024 [facility]ill [facility] - [place] [address] [place] [phone] John Giang MD [address] [facility] [place] [address] Medication Refill Social History Tobacco Use Types Packs/Day Years Used Date Smoking Tobacco: Never Passive Smoke Exposure: Never Smokeless Tobacco: Never Alcohol Use Standard Drinks/Week Comments Never 0 (1 standard drink = 0.6 oz pur e alcohol) [facility] Utilities Answer Date Recorded In the past 12 months has [employer], [employer], oil, or water Training [employer] threatened to shut off services in your [...] How often do you attend chur or sikh services? Never 10/19/2023 Do you belong to any clubs o r organizations such as gnosticism groups, unions, fraternal or athletic groups, or [...] Total Score - Questions 1-9 0 02/2024 [facility] of Occupat ional Health - Occupational Stress [...] place to sleep or slept in a jail (including now)? No 10/19/2023 Education Answer Date [...] Telephone Encounter - Margarita Baer RN - 01/25/2024 11:02 AM CDT Medication failed the protocol, provider to review and approve the medication order if appropriate. Requested Prescriptions Pending Prescriptions Disp Refills traMADol (ULTRAM) 50 MG Tablet [Pharmacy Med Name: TRAMADOL HCL 50 MG TABLET] 28 Tablet 0 Sig: TAKE 1 TABLET BY MOUTH 2 TIMES DAILY NEEDED FOR MODERATE OR MORE SEVERE PAIN. Not Delegated - Opioid Agonists Protocol Failed - 01/25/2024 10:59 AM Failed - This refill cannot be delegated Passed - Visit with relevant provider in past 12 months or upcoming 90 days Recent Visits Date Type Provider Dept 10/19/23 Office Visit John Giang MD [facility] [place] 07/20/23 Office Visit John Giang MD [facility] [place] 06/30/23 Office Visit Terri Melvin PAC [facility] [place] 04/13/23 Office Visit John Giang MD [facility] [place] Showing recent visits within past 365 days and meeting all other requirements Future Appointments Date Type Provider Dept 01/30/24 Appointment John Giang MD [facility] [place] Showing future appointments within next 90 days and meeting all other requirements documented in this encounter Plan of Treatment Upcoming Encounters Date Type Department Care Team (Late st Contact Info) Description 10/10/2024 1:45 PM PASTRY SUPERVISOR Office Visit [facility] - Internal Medicine [place] [address] [place] [place] [address] John Giang MD [address] [place] [address] documented as of this encounter Visit Diagnoses Diagnosis Chronic pain of both shoulders Pain in joint, shoulder region documented in this encounter Additional Health Concerns Assessment Noted Time PHQ-9 Depression Total Score: 0 10/19/19 24 2:03 PM PASTRY SUPERVISOR documented as of this encounter Care Teams Correctional Medicine Physician Relationship Specialty Start Date End Date John Giang MD [address] [place] [address] PCP - General Internal Medicine 09/26/19 documented as of this encounter
--- OUTSIDE RECORDS SUMMARY | 2024-09-28 14:48 | XMS_ITS | Encounter Summary ---
Author Organization [facility] Address [address] [place] [address] Phone Care Team Providers Care Road Machinery Inspector Name Role Phone John Giang MD Primary Care Provider [phone]- [phone] Reason for Visit * Reason Comments Medication Refill Encounter Details Date Type Department Care Team (Late st Contact Info) Description 11/20/2023 Refill [facility] [place] [address] [place] [phone] John Giang MD [address] [facility] [place] [address] Medication Refill Social History Tobacco Use Types Packs/Day Years Used Date Smoking Tobacco: Never Passive Smoke Exposure: Never Smokeless Tobacco: Never Alcohol Use Standard Drinks/Week Comments Never 0 (1 standard drink = 0.6 oz pur e alcohol) [facility] Utilities Answer Date Recorded In the past 12 months has [employer], [employer], oil, or water [employer] threatened to shut off services in your [...] How often do you attend chur or baptism services? Never 10/19/2023 Do you belong to any clubs o r organizations such as hinduism groups, unions, fraternal or athletic groups, or [...] Total Score - Questions 1-9 0 02/2024 [facility] of Occupat ional Health - Occupational Stress [...] place to sleep or slept in a fci (including now)? No 10/19/2023 Education Answer Date [...] Telephone Encounter - Margarita Baer RN - 11/20/2023 11:15 AM CDT Medication failed the protocol, provider to review and approve the medication order if appropriate. Requested Prescriptions Pending Prescriptions Disp Refills traMADol (ULTRAM) 50 MG Tablet [Pharmacy Med Name: TRAMADOL HCL 50 MG TABLET] 28 Tablet 0 Sig: TAKE 1 TABLET BY MOUTH 2 TIMES DAILY NEEDED FOR MODERATE OR MORE SEVERE PAIN. Not Delegated - Opioid Agonists Protocol Failed - 11/20/2023 11:10 AM Failed - This refill cannot be delegated Passed - Visit with relevant provider in past 12 months or upcoming 90 days Recent Visits Date Type Provider Dept 10/19/23 Office Visit John Giang MD [facility] [place] 07/20/23 Office Visit John Giang MD [facility] [place] 06/30/23 Office Visit Terri Melvin PAC [facility] [place] 04/13/23 Office Visit John Giang MD [facility] [place] 12/22/22 Office Visit John Giang MD [facility] [place] 11/21/22 [facility] [place] Showing recent visits within past 365 days and meeting all other requirements Future Appointments Date Type Provider Dept 01/30/24 Appointment John Giang MD [facility] Showing future appointments within next 90 days and meeting all other requirements documented in this encounter Plan of Treatment Upcoming Encounters Date Type Department Care Team (Late st Contact Info) Description 10/10/2024 1:45 PM DIRECTOR SOCIAL SERVICE Office Visit [facility] - [place] [address] [place] [address] John Giang MD [address] [place] [address] documented as of this encounter Visit Diagnoses Diagnosis Chronic pain of both shoulders Pain in joint, shoulder region documented in this encounter Additional Health Concerns Assessment Noted Time PHQ-9 Depression Total Score: 0 10/19/19 24 2:03 PM DIRECTOR SOCIAL SERVICE documented as of this encounter Care Teams Road Machinery Inspector Relationship Specialty Start Date End Date John Giang MD [address] [place] [address] PCP - General Internal Medicine 09/26/19 documented as of this encounter
--- OUTSIDE RECORDS SUMMARY | 2024-09-28 14:48 | XMS_ITS | Encounter Summary ---
Author Organization [facility] Address [address] [place] [address] Phone Care Team Providers Care Lens Polisher Name Role Phone John Giang MD Primary Care Provider [phone]- [phone] Reason for Visit * Reason Comments Medication Refill Encounter Details Date Type Department Care Team ([facility] Contact Info) Description 04/20/2021 [facility] [place] [address] [place] [phone] John Giang MD [address] [place] [address] Medication Refill Social History Tobacco [...] have Coronavirus / COVID-19? No / Unsure 03/22/2021 2:15 PM CDT documented as of this encounter Plan of Treatment Upcoming Encounters Date Type Department Care Team ([facility] Contact Info) Description 10/10/2024 1:45 PM MECHANICAL FACILITIES TECHNICIAN Office Visit [facility] Internal Medicine [place] [address] [place] [address] John Giang MD [address] [place] [place] [address] documented as of this encounter Visit Diagnoses Diagnosis Primary insomnia Persistent disorder of initiating or maintaining sleep documented in this encounter Additional Health Concerns Infection Onset Date Last Indicated Resolved Time COVID - 19 2022 05/06/2022 05/16/2022 12:1 6 AM CDT Assessment Noted Time PHQ-9 Depression Total Score: 0 08/24/19 21 1:00 PM MECHANICAL FACILITIES TECHNICIAN documented as of this encounter Care Teams Lens Polisher Relationship Specialty Start Date End Date John Giang MD [address] [place] [address] PCP - General Internal Medicine 09/26/19 documented as of this encounter
--- OUTSIDE RECORDS SUMMARY | 2024-09-28 14:48 | XMS_ITS | Encounter Summary ---
Author Organization [facility] Address [address] [place] [address] Phone Care Team Providers Care Eco Industrial Development Consultant Name Role Phone John Giang MD Primary Care Provider [phone]- [phone] Reason for Visit * Reason Comments Medication Refill Encounter Details Date Type Department Care Team (Late Contact Info) Description 11/24/2020 Refill [facility] [place] [address] [place] [phone] John Giang MD [address] [facility] [place] [address] Medication Refill Social History Tobacco [...] Telephone Encounter - Ileana Tapia RN - 11/24/2020 9:03 AM CDT Please review and sign. documented in this encounter Plan of Treatment Upcoming Encounters Date Type Department Care Team (Late Contact Info) Description 10/10/2024 1:45 PM SOCIAL WORK ADMINISTRATOR Office Visit [facility] [address] [place] [address] John Giang MD [address] [place] [address] documented as of this encounter Visit Diagnoses Not on filedocumented in this encounter Additional Health Concerns Infection Onset Date Last Indicated Resolved Time COVID - 19 2022 05/06/2022 05/16/2022 12:1 6 AM CDT Assessment Noted Time PHQ-9 Depression Total Score: 0 08/24/19 21 1:00 PM SOCIAL WORK ADMINISTRATOR documented as of this encounter Care Teams Eco Industrial Development Consultant Relationship Specialty Start Date End Date John Giang MD [address] [place] [address] PCP - General Internal Medicine 09/26/19 documented as of this encounter
--- OUTSIDE RECORDS SUMMARY | 2024-09-28 14:48 | XMS_ITS | Encounter Summary ---
Author Organization [facility] Address [address] [place] [address] Phone Care Team Providers Care Library Supervisor Name Role Phone John Giang MD Primary Care Provider [phone]- [phone] Reason for Visit * Reason Comments Medication Refill Encounter Details Date Type Department Care Team (Late st Contact Info) Description 10/04/2023 Refill [facility] [place] [address] [place] [phone] Terri Melvin, [facility] [address] [place] [address] Medication Refill Social History Tobacco [...] Telephone Encounter - Margarita Baer RN - 10/04/2023 1:31 PM CST Medication failed the protocol, provider to review and approve the medication order if appropriate. Requested Prescriptions Pending Prescriptions Disp Refills gabapentin (NEURONTIN) 300 MG Capsule [Pharmacy Med Name: GABAPENTIN 300 MG CAPSULE] 60 Capsule 1 Sig: TAKE 1 CAPSULE BY MOUTH EVERY DAY IN THE MORNING AND AT BEDTIME Not Delegated - Anticonvulsants Excluding Benzodiazepines Protocol Failed - 10/04/2023 10:00 AM Failed - This refill cannot be delegated Passed - Visit with relevant provider in past 12 months or upcoming 90 days Recent Visits Date Type Provider Dept 07/20/23 Office Visit John Giang MD [facility] 06/30/23 Office Visit Terri Melvin, PAC [facility] 04/13/23 Office Visit John Giang MD [facility] 12/22/22 Office Visit John Giang MD [facility] 11/21/22 Office Visit John Giang MD [facility] 11/07/22 Office Visit John Giang MD [facility] 10/31/22 Office Visit Terri Melvin, PAC [facility] Showing recent visits within past 365 days and meeting all other requirements Future Appointments Date Type Provider Dept 10/19/23 Appointment John Giang MD [facility] Showing future appointments within next 90 days and meeting all other requirements AL LABORATORY TECHNOLOGY TEACHER documented in this encounter Plan of Treatment Upcoming Encounters Date Type Department Care Team (Late st Contact Info) Description 10/10/2024 1:45 PM DENTAL LABORATORY TECHNOLOGY TEACHER Office Visit [facility] [place] [address] [place] [address] John Giang MD [address] [place] [address] documented as of this encounter Visit Diagnoses Not on filedocumented in this encounter Additional Health Concerns Assessment Noted Time PHQ-9 Depression Total Score: 0 08/24/19 1:00 PM DENTAL LABORATORY TECHNOLOGY TEACHER documented as of this encounter Care Teams Library Supervisor Relationship Specialty Start Date End Date John Giang MD [address] [place] [address] PCP - General Internal Medicine 09/26/19 documented as of this encounter
--- OUTSIDE RECORDS SUMMARY | 2024-09-28 14:48 | XMS_ITS | Encounter Summary ---
Author Organization [facility] Address [address] [place] [address] Phone Care Team Providers Care Entry Level Account Manager Name Role Phone John Giang MD Primary Care Provider [phone] [phone] Reason for Visit * Reason Comments Medication Refill Encounter Details Date Type Department Care Team (Late st Contact Info) Description 10/30/2023 Refill [facility] - [place] [address] [place] [phone] John Giang MD [address] [facility] [place] [place] [address] Medication Refill Social History Tobacco Use Types Packs/Day Years Used Date Smoking Tobacco: Never Passive Smoke Exposure: Never Smokeless Tobacco: Never Alcohol Use Standard Drinks/Week Comments Never 0 (1 standard drink = 0.6 oz pur e alcohol) [facility] Utilities Answer Date Recorded In the past 12 months has [employer], oil, or water [employer] threatened to shut off services in your [...] How often do you attend chur or buddhism services? Never 10/19/2023 Do you belong to any clubs o r organizations such as anglican groups, unions, fraternal or athletic groups, or [...] Total Score - Questions 1-9 0 02/2024 [facility] of Occupat ional Health - Occupational [...] place to sleep or slept in a long-term (including now)? No 10/19/2023 Education Answer Date [...] Telephone Encounter - Margarita Baer RN - 10/30/2023 12:52 PM CDT Medication failed the protocol, provider to review and approve the medication order if appropriate. Requested Prescriptions Pending Prescriptions Disp Refills traMADol (ULTRAM) 50 MG Tablet [Pharmacy Med Name: TRAMADOL HCL 50 MG TABLET] 28 Tablet 0 Sig: TAKE 1 TABLET BY MOUTH 2 TIMES DAILY NEEDED FOR MODERATE OR MORE SEVERE PAIN. Not Delegated - Opioid Agonists Protocol Failed - 10/30/2023 12:48 PM Failed - This refill cannot be delegated Passed - Visit with relevant provider in past 12 months or upcoming 90 days Recent Visits Date Type Provider Dept 10/19/23 Office Visit John Giang MD [facility] [place] 07/20/23 Office Visit John Giang MD [facility] [place] 06/30/23 Office Visit Terri Melvin PAC [facility] [place] 04/13/23 Office Visit John Giang MD [facility] [place] 12/22/22 Office Visit John Giang MD [facility] [place] 11/21/22 Office Visit John Giang MD [facility] [place] 11/07/22 Office Visit John Giang MD [facility] [place] 10/31/22 Office Visit Terri Melvin, PAC [facility] [place] Showing recent visits within past 365 days and meeting all other requirements Future Appointments No visits were found meeting these conditions. Showing future appointments within next 90 days and meeting all other requirements documented in this encounter Plan of Treatment Upcoming Encounters Date Type Department Care Team (Late st Contact Info) Description 10/10/2024 1:45 PM MACHINE FEEDER RAW STOCK Office Visit [facility] - [place] [address] [place] [address] John Giang MD [address] [facility] [place] [address] documented as of this encounter Visit Diagnoses Diagnosis Chronic pain of both shoulders Pain in joint, shoulder region documented in this encounter Additional Health Concerns Assessment Noted Time PHQ-9 Depression Total Score: 0 10/19/19 24 2:03 PM MACHINE FEEDER RAW STOCK documented as of this encounter Care Teams Entry Level Account Manager Relationship Specialty Start Date End Date John Giang MD [address] [place] [address] PCP - General Internal Medicine 09/26/19 documented as of this encounter
--- OUTSIDE RECORDS SUMMARY | 2024-09-28 14:48 | XMS_ITS | Encounter Summary ---
Author Organization [facility] Address [address] [place] [address] Phone Care Team Providers Care Fire Protection Engineering Technician Name Role Phone John Giang MD Primary Care Provider [phone]- [phone] Reason for Visit * Reason Comments Medication Refill Encounter Details Date Type Department Care Team (Late st Contact Info) Description 01/02/2023 Refill [facility] - [place] [address] [place] [phone] John Giang MD [address] [facility] [place] [address] Medication Refill Social History Tobacco [...] suspected to have Coronavirus/COVID-19? No / Unsure 12/22/2022 1:11 PM CDT documented as of this encounter Miscellaneous Notes * Telephone Encounter - Margarita Baer RN - 01/02/2023 10:19 AM CDT Medication failed the protocol, provider to review and approve the medication order if appropriate. Requested Prescriptions Pending Prescriptions Disp Refills temazepam (RESTORIL) 15 MG Capsule [Pharmacy Med Name: TEMAZEPAM 15MG CAPSULE] 30 Capsule 0 Sig: TAKE 1 CAPSULE BY MOUTH NIGHTLY NEEDED FOR SLEEP. Not Delegated - Off Protocol Failed - 01/02/2023 10:04 AM Failed - This refill cannot be delegated Passed - Visit with relevant provider in past 12 months or upcoming 90 days Recent Visits Date Type Provider Dept 12/22/22 Office Visit John Giang MD [facility] [place] 11/21/22 Office Visit John Giang MD [facility] [place] 11/07/22 Office Visit John Giang MD [facility] [place] 10/31/22 Office Visit Terri Melvin, PAC [facility] [place] 06/30/22 Office Visit John Giang MD [facility] [place] 05/12/22 Office Visit Terri Melvin, PAC [facility] [place] 05/06/22 Office Visit Terri Melvin, PAC [facility] [place] 05/06/22 Appointment [place] [place] 01/18/22 Office Visit John Giang MD [facility] [place] Showing recent visits within past 365 days and meeting all other requirements Future Appointments Date Type Provider Dept 03/27/23 Appointment John Giang MD [facility] [place] Showing future appointments within next 90 days and meeting all other requirements documented in this encounter Plan of Treatment Upcoming Encounters Date Type Department Care Team (Late st Contact Info) Description 10/10/2024 1:45 PM PRODUCT DEVELOPER Office Visit [facility] - Internal Medicine - [place] [address] [place] [address] John Giang MD [address] [place] [address] documented as of this encounter Visit Diagnoses Diagnosis Primary insomnia Persistent disorder of initiating or maintaining sleep documented in this encounter Additional Health Concerns Assessment Noted Time PHQ-9 Depression Total Score: 0 08/24/19 21 1:00 PM PRODUCT DEVELOPER documented as of this encounter Care Teams Fire Protection Engineering Technician Relationship Specialty Start Date End Date John Giang MD [address] [place] [address] PCP - General Internal Medicine 09/26/19 documented as of this encounter
--- OUTSIDE RECORDS SUMMARY | 2024-09-28 14:48 | XMS_ITS | Encounter Summary ---
Author Organization [facility] Address [address] [place] [address] Phone Care Team Providers Care Marketing Mgr Name Role Phone John Giang MD Primary Care Provider +1- [phone] Reason for Visit * Reason Comments Medication Refill Encounter Details Date Type Department Care Team (Late st Contact Info) Description 01/09/2024 Refill [facility] [place] [address] [place] [phone] John Giang MD [address] [facility] [place] [address] Medication Refill Social History Tobacco Use Types Packs/Day Years Used Date Smoking Tobacco: Never Passive Smoke Exposure: Never Smokeless Tobacco: Never Alcohol Use Standard Drinks/Week Comments Never 0 (1 standard drink = 0.6 oz pur e alcohol) [facility] Utilities Answer Date Recorded In the past 12 months has [employer], [employer], oil, or water [employer] threatened to shut off services in your [...] How often do you attend chur or episcopalian services? Never 10/19/2023 Do you belong to any clubs o r organizations such as rastafarian groups, unions, fraternal or athletic groups, or [...] Total Score - Questions 1-9 0 02/2024 [facility] of Occupat ional Health - Occupational [...] place to sleep or slept in a custodial (including now)? No 10/19/2023 Education Answer Date [...] Telephone Encounter - Margarita Baer RN - 01/09/2024 11:17 AM CDT Medication failed the protocol, provider to review and approve the medication order if appropriate. Requested Prescriptions Pending Prescriptions Disp Refills traMADol (ULTRAM) 50 MG Tablet [Pharmacy Med Name: TRAMADOL HCL 50 MG TABLET] 28 Tablet 0 Sig: TAKE 1 TABLET BY MOUTH 2 TIMES DAILY NEEDED FOR MODERATE OR MORE SEVERE PAIN. Not Delegated - Opioid Agonists Protocol Failed - 01/09/2024 10:30 AM Failed - This refill cannot be delegated Passed - Visit with relevant provider in past 12 months or upcoming 90 days Recent Visits Date Type Provider Dept 10/19/23 Office Visit John Giang MD [facility] [place] 07/20/23 Office Visit John Giang MD [facility] [place] 06/30/23 Office Visit Terri Melvin PAC [facility] [place] 04/13/23 Office Visit John Giang MD [facility] [place] Showing recent visits within past 365 days and meeting all other requirements Future Appointments Date Type Provider Dept 01/30/24 Appointment John Giang MD [facility] [place] Showing future appointments within next 90 days and meeting all other requirements documented in this encounter Plan of Treatment Upcoming Encounters Date Type Department Care Team (Late st Contact Info) Description 10/10/2024 1:45 PM SOCIAL WORK ASSISTANT Office Visit [facility] [place] [address] [place] [place] [address] John Giang MD [address] [place] [address] documented as of this encounter Visit Diagnoses Diagnosis Chronic pain of both shoulders Pain in joint, shoulder region documented in this encounter Additional Health Concerns Assessment Noted Time PHQ-9 Depression Total Score: 0 10/19/19 24 2:03 PM SOCIAL WORK ASSISTANT documented as of this encounter Care Teams Marketing Mgr Relationship Specialty Start Date End Date John Giang MD [address] [place] [address] PCP - General Internal Medicine 09/26/19 documented as of this encounter
[2024-09-28 14:50] VITALS: BP 148/66; PULSE 94; RESP 20; TEMP 36.7; O2SAT 99
--- NOTE | 2024-09-28 16:22 | ED.GENADULT ---
HPI - General Adult General Chief complaint: Upper Respiratory Infection Stated complaint: Sinus Source: patient Mode of arrival: ambulatory Limitations: no limitations History of Present Illness HPI narrative: Pt presents for evaluation of sinus symptoms. She reports sinus congestion and thick yellow nasal drainage. She also has right sided otalgia. She was seen here in May and was diagnosed with sinusitis. She was given a prescription for amoxicillin. She states her symptoms did not improve. She denies fever, chills, nausea, vomiting or diarrhea. No recent sick contacts to her knowledge. She does not smoke. She has tried flonase without improvement in her symptoms. Related Data Home Medications ?Medication ?Instructions ?Recorded ?Confirmed ?Last Taken ?Type amlodipine 10 mg tablet 10 mg PO DAILY 07/21/20 09/28/24 Unknown History temazepam 15 mg capsule 15 mg PO HS 07/21/20 08/26/21 Unknown History omeprazole 20 mg capsule,delayed 20 mg PO DAILY 08/26/21 08/26/21 Unknown History release tramadol 50 mg tablet See Rx Instructions .Route .COMPLEX 08/26/21 08/26/21 Unknown History gabapentin 300 mg capsule mg 01/24/24 Unknown History amlodipine 5 mg tablet mg 09/28/24 Unknown History Allergies Allergy/AdvReac Type Severity Reaction Status Date / Time Sulfa (Sulfonamide Allergy Unknown Unknown Verified 09/28/24 14:47 Antibiotics) Review of Systems Review of Systems: CONSTITUTIONAL: Denies fever, chills, or sweats. EYES: Denies visual changes, redness, or discharge. ENT: Reports right-sided ear pain sinus congestion and thick yellow nasal drainage. Denies sore throat. CARDIOVASCULAR: Denies chest pain, palpitations, or edema. RESPIRATORY: Denies cough or dyspnea. GASTROINTESTINAL: Denies abdominal pain, nausea, vomiting, or diarrhea. GENITOURINARY: Denies dysuria or hematuria. SKIN: Denies rash or itching. MUSCULOSKELETAL: Denies back pain, joint pain, or myalgia. NEUROLOGIC: Denies headache, numbness, dizziness, or weakness. PSYCHIATRIC: Denies anxiety or depression. [facility] Past Medical History Medical History Arthritis Fracture of right wrist Insomnia Neuropathy Sinusitis Hypertension Surgical History Surgical History History of cholecystectomy Family History Family History Mother Family history non-contributory Social History Social History Smoking status: Never smoker Alcohol intake: never Substance use: never Gender identity (if verbalized by the patient): Female Exam Narrative: GENERAL: Well-appearing, well-nourished, and in no acute distress. HEAD: Normocephalic, atraumatic. EYES: PERRLA and EOMI. ENT: Bilateral maxillary sinus tenderness. Nares clear, no rhinorrhea or epistaxis. Mucous membranes moist. Oropharynx without tonsillar hypertrophy exudate or other lesions. Bilateral TMs pearly castro nonbulging NECK: Supple. No adenopathy or masses. No carotid bruits or JVD CHEST: Clear to auscultation. No respiratory distress. No wheezes rales or rhonchi HEART: Regular rate and rhythm. No murmur heard. Normal peripheral pulses. ABDOMEN: Soft, nontender, nondistended, normal active bowel sounds. EXTREMITIES: Normal range of motion. No edema. SKIN: Warm, dry, no rash. NEURO: No focal deficits. Alert and oriented x3. PSYCH: Normal mood and affect. Course Course Emergency Course: This is an 84-year-old female who presented for evaluation of sinus symptoms. She meets criteria for bacterial sinusitis based upon presence of mucopurulent discharge in duration of time in which she has been symptomatic. She failed amoxicillin so will try augmentin. She states this has been effective in the past. Increase hydration. Vkck-irv-ylkutiv agents for symptom management. Follow up with primary provider. Go to the ER for worsening symptoms. Patient in agreement with plan of care. Level of Care: Express Care Visit Vital Signs Vital signs: Vital Signs Temperature 36.7 C 09/28/24 14:50 Pulse Rate 94 09/28/24 14:50 Respiratory Rate 20 09/28/24 14:50 Blood Pressure 148/66 H 09/28/24 14:50 Pulse Oximetry 99 09/28/24 14:50 Oxygen Delivery Room Air 09/28/24 14:50 Temperature 36.7 C 09/28/24 14:50 Pulse Rate 94 09/28/24 14:50 Respiratory Rate 09/28/24 14:50 Blood Pressure 148/66 H 09/28/24 14:50 Pulse Oximetry 99 09/28/24 14:50 Oxygen Delivery Room Air 09/28/24 14:50 Medical Decision Making Vital Signs Vital Signs: Vital Signs Temperature 36.7 C 09/28/24 14:50 Pulse Rate 94 09/28/24 14:50 Respiratory Rate 09/28/24 14:50 Blood Pressure 148/66 H 09/28/24 14:50 Pulse Oximetry 99 09/28/24 14:50 Oxygen Delivery Room Air 09/28/24 14:50 Temperature 36.7 C 09/28/24 14:50 Pulse Rate 94 09/28/24 14:50 Respiratory Rate 09/28/24 14:50 Blood Pressure 148/66 H 09/28/24 14:50 Pulse Oximetry 99 09/28/24 14:50 Oxygen Delivery Room Air 09/28/24 14:50 Discharge Plan Discharge Clinical Impression: Sinusitis Patient Disposition: Home, Self-Care Condition: Stable Instructions: Antibiotic Form, Sinusitis (ED) Patient Language: Burkinan Prescriptions: New amoxicillin-pot clavulanate 875-125 mg tablet 1 tablet PO Q12H Qty: 20 0RF No Action amlodipine 5 mg tablet temazepam 15 mg Capsule 15 mg PO HS amlodipine 10 mg Tablet 10 mg PO DAILY tramadol 50 mg tablet See Rx Instructions .ROUTE .COMPLEX Rx Instructions: as prescribed omeprazole 20 mg capsule,delayed release(DR/EC) 20 mg PO DAILY loratadine [Claritin] 10 mg tablet 10 mg PO DAILY Qty: 20 0RF gabapentin 300 mg capsule Follow-up/Referrals: Diann Giang MD [Primary Care Provider] - Time of Disposition: 16:21
[2024-09-28 16:35] LABS: EDCOVIDSCREEN Negative (Negative); EDINFLUASCREEN Negative (Negative); EDINFLUBSCREEN Negative (Negative)
[2024-09-28 16:36] LABS: EDSTREPNEGPOS1 Negative (Negative)
== END 2024-09-28 16:22 | disposition home or self-care (01) ==
PROVIDERS: Emergency Provider Nurse Practitioner; PCP Internal Medicine
DX: J32.9 Chronic sinusitis, unspecified (principal); I10 Essential (primary) hypertension; Z20.822 Contact with and (suspected) exposure to COVID-19
CPT/HCPCS: 87081; 87426; 87804; 87880; 99213; G0463

== ENCOUNTER 2025-01-06 13:57 | Emergency (ER) | payer MEDICARE, SELFPAY ==
--- OUTSIDE RECORDS SUMMARY | 2025-01-06 13:59 | XMS_ITS | Referral Summary ---
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 Gender Identity Not on file Sexual Orientation [...] 10:50 AM CDT Height 165.1 cm (5' 5) 03/28/2024 10:50 AM CDT Body Mass Index 22.8 03/28/2024 10:50 AM CDT Plan of Treatment Not [place] [address] [facility] [place] [address] [facility] AETNA MEDICARE INCLUDE 234 BEDS AT THE [facility] MEDICARE Address: [facility] [id number] [place] [phone] [place] [address] AETNA MEDICARE GOLD INCLUDE 234 BEDS AT THE [facility] MEDICARE Address: [facility] [id number] [place] [id number] Advance Directives For more information, please contact: [phone] * Full Code (Latest Code Status on File) Date Activated Date Inactivated Comments 06/07/2019 11:04 PM 06/10/2019 5:07 PM * Full Code Date Activated Date Inactivated Comments 05/07/2019 4:14 PM 05/09/2019 8:31 PM * Full Code Date Activated Date Inactivated Comments 03/27/2019 5:35 PM 03/28/2019 10:20 PM Care Teams Freight Clerk Relationship Specialty Start Date End Date John Giang MD PCP - General 12/07/18 Mattie Myles MD Consulting Physician Neurology 03/28/19
--- OUTSIDE RECORDS SUMMARY | 2025-01-06 13:59 | XMS_ITS | Encounter Summary ---
Author Organization [facility] Address [address] [place] [address] Phone Care Team Providers Care Trombone Slide Assembler Name Role Phone John Giang MD Primary Care Provider +1- [phone] Reason for Visit * Reason Comments Medication Refill Encounter Details Date Type Department Care Team (Late st Contact Info) Description 08/25/2020 Refill [facility] - [place] [address] [place] [address] John Giang MD [address] [place] [address] Medication Refill Social History Tobacco [...] COVID-19? No / Unsure 08/24/2020 1:26 PM ART MODEL documented as of this encounter Miscellaneous Notes * Telephone Encounter - Ileana Tapia RN - 08/25/2020 8:31 AM CST Please review and sign. MODEL documented in this encounter Plan of Treatment Upcoming Encounters Date Type Department Care Team (Late st Contact Info) Description 01/27/2025 2:15 PM CDT Office Visit [facility] - Internal Medicine [place] [address] [place] [address] John Giang MD [address] [facility] [place] [place] [address] documented as of this encounter Visit Diagnoses Not on filedocumented in this encounter Additional Health Concerns Infection Onset Date Last Indicated Resolved Time COVID - 19 2022 05/06/2022 05/16/2022 12:1 6 AM CDT Assessment Noted Time PHQ-9 Depression Total Score: 0 08/24/19 21 1:00 PM ART MODEL documented as of this encounter Care Teams Trombone Slide Assembler Relationship Specialty Start Date End Date John Giang MD [address] [place] [address] PCP - General Internal Medicine 09/26/19 documented as of this encounter
--- OUTSIDE RECORDS SUMMARY | 2025-01-06 13:59 | XMS_ITS | Encounter Summary ---
Author Organization [facility] Address [address] [place] [address] Phone Care Team Providers Care County Extension Agent Name Role Phone John Giang MD Primary Care Provider Reason for Visit * Reason Comments Medication Refill Encounter Details Date Type Department Care Team (Late st Contact Info) Description 06/25/2022 [facility]ill [facility] - [place] [address] [facility] [place] [phone] John Giang MD [address] [facility] [place] [address] Medication Refill Social History Tobacco [...] John Giang MD - 06/27/2022 7:52 AM STAFFING COORDINATOR Refill denied - See Refusal reason FING COORDINATOR * Telephone Encounter - Ileana Tapia RN [...] Provider Dept 05/12/22 Office Visit Terri Melvin, [facility] [place] 05/06/22 Office Visit Terri Melvin, [facility] [place] 05/06/22 Appointment Clifford [facility] [place] 01/18/22 Office Visit John Giang MD [facility] [place] 10/15/21 Office Visit John Giang MD [facility] Showing recent visits within past 365 days and meeting all other requirements Future Appointments No visits were found meeting these conditions. Showing future appointments within next 90 days and meeting all other requirements FING COORDINATOR documented in this encounter Plan of Treatment Upcoming Encounters Date Type Department Care Team (Late st Contact Info) Description 01/27/2025 2:15 PM CDT Office Visit [facility] - Internal Medicine - [place] [address] [place] [id number] John Giang MD [address] [place] [address] documented as of this encounter Visit Diagnoses Diagnosis Primary insomnia Persistent disorder of initiating or maintaining sleep documented in this encounter Additional Health Concerns Assessment Noted Time PHQ-9 Depression Total Score: 0 08/24/19 21 1:00 PM STAFFING COORDINATOR documented as of this encounter Care Teams County Extension Agent Relationship Specialty Start Date End Date John Giang MD [address] [place] [address] PCP - General Internal Medicine 09/26/19 documented as of this encounter
--- OUTSIDE RECORDS SUMMARY | 2025-01-06 13:59 | XMS_ITS | Encounter Summary ---
Author Organization [facility] Address [address] [place] [address] Phone Care Team Providers Care Slot Router Name Role Phone John Giang MD Primary Care Provider +1- [phone] Reason for Visit * Reason Comments Medication Refill Encounter Details Date Type Department Care Team (Late st Contact Info) Description 01/30/2023 Refill [facility] - [place] [address] [place] [phone] Terri Melvin, [facility] [address] [place] [address] Medication Refill Social History Tobacco [...] Visit [facility] - Internal Medicine [place] [address] [place] [address] John Giang MD [address] [place] [address] documented as of this encounter Visit Diagnoses Diagnosis Chronic pain of both shoulders Pain in joint, shoulder region documented in this encounter Additional Health Concerns Assessment Noted Time PHQ-9 Depression Total Score: 0 08/24/19 21 1:00 PM SEX OFFENDER TREATMENT PROFESSIONAL documented as of this encounter Care Teams Slot Router Relationship Specialty Start Date End Date John Giang MD [address] [place] [address] PCP - General Internal Medicine 09/26/19 documented as of this encounter
--- OUTSIDE RECORDS SUMMARY | 2025-01-06 13:59 | XMS_ITS | Clinical Summary ---
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 YEAST SUPERVISOR Gender Identity Not on file Sexual Orientation [...] Pneumococcal vaccine 65+ (2 of 2 - PPSV23) 03/24/2015 03/24/2014 Depression Screening 05/07/2020 05/07/2019, 03/27/20 19 Influenza Vaccine (Season Ended) 2025 DTaP/Tdap/Td Vaccine (2 - Td or Tdap) 10/28/[address] [place] [address] [employer] [facility] [place] [address] [facility] [place] [address] AETNA MEDICARE GOLD Advance Directives For more information, please contact: [phone] * Full Code (Latest Code Status on File) Date Activated Date Inactivated Comments 06/07/2019 11:04 PM 06/10/2019 5:07 PM * Full Code Date Activated Date Inactivated Comments 05/07/2019 4:14 PM 05/09/2019 8:31 PM * Full Code Date Activated Date Inactivated Comments 03/27/2019 5:35 PM 03/28/2019 10:20 PM Care Teams Contract Serviceman Relationship Specialty Start Date End Date John Giang MD PCP - General 12/07/18 Mattie Myles MD Consulting Physician Neurology 03/28/19
--- OUTSIDE RECORDS SUMMARY | 2025-01-06 13:59 | XMS_ITS | Encounter Summary ---
Author Organization [facility] Address [address] [place] [address] Phone Care Team Providers Care Dermatopathologist Name Role Phone John Giang MD Primary Care Provider +1- [phone] Reason for Visit * Reason Comments Medication Refill Encounter Details Date Type Department Care Team (Late st Contact Info) Description 01/30/2023 Refill [facility] - [place] [address] [place] [phone] John Giang MD [address] [facility] [place] [address] Medication Refill Social History Tobacco [...] Office Visit John Giang MD [facility] [place] 11/21/22 Office Visit John Giang MD [facility] [place] 11/07/22 Office Visit John Giang MD [facility] [place] 10/31/22 Office Visit Terri Melvin, PAC [facility] 06/30/22 Office Visit John Giang MD [facility] [place] 05/12/22 Office Visit Terri Melvin, PAC [facility] [place] 05/06/22 Office Visit Terri Melvin, PAC [facility] [place] 05/06/22 Appointment [place] [facility] Showing recent visits within past 365 days and meeting all other requirements Future Appointments Date Type Provider Dept 03/27/23 Appointment John Giang MD [facility] [place] Showing future appointments within next 90 days and meeting all other requirements documented in this encounter Plan of Treatment Upcoming Encounters Date Type Department Care Team (Late st Contact Info) Description 01/27/2025 2:15 PM CDT Office Visit [facility] - Internal Medicine - [place] [address] [place] [place] [address] John Giang MD [address] [place] [address] documented as of this encounter Visit Diagnoses Diagnosis Primary insomnia Persistent disorder of initiating or maintaining sleep documented in this encounter Additional Health Concerns Assessment Noted Time PHQ-9 Depression Total Score: 0 08/24/19 21 1:00 PM AIR DEFENSE SPECIALIST documented as of this encounter Care Teams Dermatopathologist Relationship Specialty Start Date End Date John Giang MD [address] [place] [address] PCP - General Internal Medicine 09/26/19 documented as of this encounter
--- OUTSIDE RECORDS SUMMARY | 2025-01-06 13:59 | XMS_ITS | Encounter Summary ---
Author Organization [facility] Address [address] [place] [address] Phone Care Team Providers Care Energy Analyst Name Role Phone John Giang MD Primary Care Provider +1- [phone] Reason for Visit * Reason Comments Medication Refill Encounter Details Date Type Department Care Team (Late st Contact Info) Description 07/29/2020 Refill [facility] - [place] [address] [place] [address] John Giang MD [address] [place] [address] Medication Refill Social History Tobacco [...] COVID-19? No / Unsure 07/19/2020 3:24 AM MECHANICAL UNIT REPAIRER documented as of this encounter Miscellaneous Notes * Telephone Encounter - Ileana Tapia RN - 07/29/2020 7:59 AM CST Please review and sign. ANICAL UNIT REPAIRER documented in this encounter Plan of Treatment Upcoming Encounters Date Type Department Care Team (Late st Contact Info) Description 01/27/2025 2:15 PM CDT Office Visit [facility] - Internal Medicine [facility] [address] [place] [address] John Giang MD [address] [place] [address] documented as of this encounter Visit Diagnoses Not on filedocumented in this encounter Additional Health Concerns Infection Onset Date Last Indicated Resolved Time COVID - 19 2022 05/06/2022 05/16/2022 12:1 6 AM CDT Assessment Noted Time PHQ-9 Depression Total Score: 0 06/01/20 20 2:00 PM CDT documented as of this encounter Care Teams Energy Analyst Relationship Specialty Start Date End Date John Giang MD [address] [place] [address] PCP - General Internal Medicine 09/26/19 documented as of this encounter
--- OUTSIDE RECORDS SUMMARY | 2025-01-06 13:59 | XMS_ITS | Encounter Summary ---
Author Organization [facility] Address [address] [place] [address] Phone Care Team Providers Care Sr. Social Media & Mobile Manager Name Role Phone John Giang MD Primary Care Provider +1- [phone] Reason for Visit * Reason Comments Medication Refill Encounter Details Date Type Department Care Team ([facility] Contact Info) Description 06/13/2023 Refill [facility] Internal Medicine [facility] [address] [place] [address] John Giang MD [address] [place] [address] Medication Refill Social History Tobacco [...] Upcoming Encounters Date Type Department Care Team ([facility] Contact Info) Description 01/27/2025 2:15 PM CDT Office Visit [facility] Internal [facility] [address] [place] [address] John Giang MD [address] [place] [address] documented as of this encounter Visit Diagnoses Diagnosis Chronic pain of both shoulders Pain in joint, shoulder region documented in this encounter Additional Health Concerns Assessment Noted Time PHQ-9 Depression Total Score: 0 08/24/19 21 1:00 PM FLUMER documented as of this encounter Care Teams Sr. Social Media & Mobile Manager Relationship Specialty Start Date End Date John Giang MD [address] [place] [address] PCP - General Internal Medicine 09/26/19 documented as of this encounter
--- OUTSIDE RECORDS SUMMARY | 2025-01-06 13:59 | XMS_ITS | Encounter Summary ---
Author Organization [facility] Address [address] [place] [address] Phone Care Team Providers Care Senior Data Developer Name Role Phone John Gaing MD Primary Care Provider +1- [phone] Reason for Visit * Reason Comments Medication Refill Encounter Details Date Type Department Care Team ([facility] Contact Info) Description 03/29/2023 Refill [facility] Internal Medicine [facility] [address] [place] [address] John Giang MD [address] [place] [address] Medication Refill Social History Tobacco [...] Upcoming Encounters Date Type Department Care Team ([facility] Contact Info) Description 01/27/2025 2:15 PM CDT Office Visit [facility] Internal [facility] [address] [place] [address] John Giang MD [address] [place] [address] documented as of this encounter Visit Diagnoses Diagnosis Primary insomnia Persistent disorder of initiating or maintaining sleep documented in this encounter Additional Health Concerns Assessment Noted Time PHQ-9 Depression Total Score: 0 08/24/19 21 1:00 PM TRAIN STATION AGENT documented as of this encounter Care Teams Senior Data Developer Relationship Specialty Start Date End Date oJhn Giang MD [address] [place] [address] PCP - General Internal Medicine 09/26/19 documented as of this encounter
--- OUTSIDE RECORDS SUMMARY | 2025-01-06 13:59 | XMS_ITS | Encounter Summary ---
Author Organization [facility] Address [address] [place] [address] Phone Care Team Providers Care Crusher Wet Ground Mica Name Role Phone John Giang MD Primary Care Provider +1- [phone] Reason for Visit * Reason Comments Medication Refill Encounter Details Date Type Department Care Team (Late st Contact Info) Description 10/26/2020 Refill [facility] Medicine - [place] [address] [place] [address] John Giang MD [address] [address] Medication Refill Social History Tobacco [...] Description 01/27/2025 2:15 PM CDT Office Visit [facility] - Internal Medicine [place] [address] [place] [address] John Giang MD [address] [place] [address] documented as of this encounter Visit Diagnoses Not on filedocumented in this encounter Additional Health Concerns Infection Onset Date Last Indicated Resolved Time COVID - 19 2022 05/06/2022 05/16/2022 12:1 6 AM CDT Assessment Noted Time PHQ-9 Depression Total Score: 0 08/24/19 21 1:00 PM CADDYMASTER documented as of this encounter Care Teams Crusher Wet Ground Mica Relationship Specialty Start Date End Date John Giang MD [address] [place] [address] PCP - General Internal Medicine 09/26/19 documented as of this encounter
--- OUTSIDE RECORDS SUMMARY | 2025-01-06 13:59 | XMS_ITS | Encounter Summary ---
Author Organization [facility] Address [address] [place] [address] Phone Care Team Providers Care Fusion Juncture Grinder Name Role Phone John Giang MD Primary Care Provider Reason for Visit * Reason Comments Medication Refill Encounter Details Date Type Department Care Team (Late st Contact Info) Description 06/24/2020 [facility]ill [facility] - [place] [address] [place] [phone] John Giang MD [address] [facility] [place] [address] Medication Refill Social History Tobacco [...] 9:28 AM CST Please review and sign. AS WORKER documented in this encounter Plan of Treatment Upcoming Encounters Date Type Department Care Team (Late st Contact Info) Description 01/27/2025 2:15 PM CDT Office Visit [facility] - [facility] [address] [place] [address] John Giang MD [address] [place] [address] documented as of this encounter Visit Diagnoses Not on filedocumented in this encounter Additional Health Concerns Infection Onset Date Last Indicated Resolved Time COVID - 19 2022 05/06/2022 05/16/2022 12:1 6 AM CDT Assessment Noted Time PHQ-9 Depression Total Score: 0 06/01/20 20 2:00 PM CDT documented as of this encounter Care Teams Fusion Juncture Grinder Relationship Specialty Start Date End Date John Giang MD [address] [place] [address] PCP - General Internal Medicine 09/26/19 documented as of this encounter
--- OUTSIDE RECORDS SUMMARY | 2025-01-06 13:59 | XMS_ITS | Encounter Summary ---
Author Organization [facility] Address [address] [place] [address] Phone Care Team Providers Care Check Out Clerk Name Role Phone John Giang MD Primary Care Provider Reason for Visit * Reason Comments Medication Refill Encounter Details Date Type Department Care Team (Late st Contact Info) Description 06/28/2022 Refill [facility] - [place] [address] [place] [phone] John Giang MD [address] [facility] [place] [address] Medication Refill Social History Tobacco [...] Coronavirus/COVID-19? No / Unsure 06/30/2022 10:45 AM AGRICULTURAL ENGINEERING TECHNICIAN documented as of this encounter Miscellaneous Notes * Telephone Encounter - Margarita Baer RN - 06/28/2022 3:19 PM CST duplicate CULTURAL ENGINEERING TECHNICIAN documented in this encounter Plan of Treatment Upcoming Encounters Date Type Department Care Team (Late st Contact Info) Description 01/27/2025 2:15 PM CDT Office Visit [facility] - Internal Medicine [place] [address] [place] [place] [address] John Giang MD [address] [place] [address] documented as of this encounter Visit Diagnoses Diagnosis Primary insomnia Persistent disorder of initiating or maintaining sleep documented in this encounter Additional Health Concerns Assessment Noted Time PHQ-9 Depression Total Score: 0 08/24/19 21 1:00 PM AGRICULTURAL ENGINEERING TECHNICIAN documented as of this encounter Care Teams Check Out Clerk Relationship Specialty Start Date End Date John Giang MD [address] [place] [address] PCP - General Internal Medicine 09/26/19 documented as of this encounter
--- OUTSIDE RECORDS SUMMARY | 2025-01-06 13:59 | XMS_ITS | Encounter Summary ---
Author Organization [facility] Address [address] [place] [address] Phone Care Team Providers Care Floor Worker Well Service Name Role Phone John Giang MD Primary Care Provider +1- [phone] Reason for Visit * Reason Comments Medication Refill Encounter Details Date Type Department Care Team ([facility] Contact Info) Description 06/20/2023 Refill [facility] Internal Medicine [facility] [address] [place] [address] John Giang MD [address] [place] [address] Medication Refill Social History Tobacco [...] Upcoming Encounters Date Type Department Care Team ([facility] Contact Info) Description 01/27/2025 2:15 PM CDT Office Visit [facility] Internal [facility] [address] [place] [address] John Giang MD [address] [place] [address] documented as of this encounter Visit Diagnoses Diagnosis Generalized anxiety disorder documented in this encounter Additional Health Concerns Assessment Noted Time PHQ-9 Depression Total Score: 0 08/24/19 21 1:00 PM KETTLE WORKER documented as of this encounter Care Teams Floor Worker Well Service Relationship Specialty Start Date End Date John Giang MD [address] [place] [address] PCP - General Internal Medicine 09/26/19 documented as of this encounter
--- OUTSIDE RECORDS SUMMARY | 2025-01-06 13:59 | XMS_ITS | Encounter Summary ---
Author Organization [facility] Address [address] [place] [address] Phone Care Team Providers Care Chief Technician Name Role Phone John Giang MD Primary Care Provider +1- [phone] Reason for Visit * Reason Comments Medication Refill Encounter Details Date Type Department Care Team (Late st Contact Info) Description 06/23/2023 Refill [facility] - [place] [address] [place] [phone] John Giang MD [address] [facility] [place] [address] Medication Refill Social History Tobacco [...] Dept 04/13/23 Office Visit John Giang MD [facility] [place] 12/22/22 Office Visit John Giang MD [facility] [place] 11/21/22 Office Visit John Giang MD [facility] [place] 11/07/22 Office Visit John Giang MD [facility] [place] 10/31/22 Office Visit Terri Melvin PAC [facility] [place] 06/30/22 Office Visit John Giang MD [facility] [place] Showing recent visits within past 365 days and meeting all other requirements Future Appointments Date Type Provider Dept 07/20/23 Appointment John Giang MD [facility] [place] Showing future appointments within next 90 days and meeting all other requirements E MINER documented in this encounter Plan of Treatment Upcoming Encounters Date Type Department Care Team (Late st Contact Info) Description 01/27/2025 2:15 PM CDT Office Visit [facility] - Internal Medicine - [place] [address] [place] [place] [address] John Giang MD [address] [place] [address] documented as of this encounter Visit Diagnoses Diagnosis Primary insomnia Persistent disorder of initiating or maintaining sleep documented in this encounter Additional Health Concerns Assessment Noted Time PHQ-9 Depression Total Score: 0 08/24/19 21 1:00 PM STOPE MINER documented as of this encounter Care Teams Chief Technician Relationship Specialty Start Date End Date John Giang MD [address] [place] [place] [address] PCP - General Internal Medicine 09/26/19 documented as of this encounter
--- OUTSIDE RECORDS SUMMARY | 2025-01-06 13:59 | XMS_ITS | Encounter Summary ---
Author Organization [facility] Address [address] [place] [address] Phone Care Team Providers Care Pipe Organ Mechanic Name Role Phone John Giang MD Primary Care Provider +1- [phone] Reason for Visit * Reason Onset Date Comments Medication Refill 12/24/2024 Encounter Details Date Type Department Care Team (Late st Contact Info) Description 12/24/2024 Refill [facility] - Internal Medicine - [place] [address] [facility] [place] [phone] John Giang MD [address] [address] Medication Refill Social History Tobacco Use Types Packs/Day Years Used Date Smoking Tobacco: Never Passive Smoke Exposure: Never Smokeless Tobacco: Never Alcohol Use Standard Drinks/Week Comments Never 0 (1 standard drink = 0.6 oz pur e alcohol) [facility] Utilities Answer Date Recorded In the past 12 months has [employer], gas, oil, or water [employer] threatened to shut off services in your [...] week 10/19/2023 How often do you attend [facility] or advent services? Never 10/19/2023 Do you belong to any clubs o r organizations such as latter-day groups, unions, fraternal or athletic groups, or [...] Recorded Total Score - Questions 1-9 0 09/15 [facility] of Occupat ional Health - Occupational Stress [...] to sleep or slept in a senior living (including now)? No 10/19/2023 Education Answer Date [...] encounter Miscellaneous Notes * Telephone Encounter - Rachael Grant - 12/24/2024 10:05 AM CDT Med rf Medication - Temazepam Phone - [phone] Pharmacy - [facility] documented in this encounter Plan of Treatment Upcoming Encounters Date Type Department Care Team (Late st Contact Info) Description 01/27/2025 2:15 PM CDT Office Visit [facility] - Internal Medicine [place] [address] [place] [address] John Giang MD [address] [place] [address] documented as of this encounter Visit Diagnoses Diagnosis Primary insomnia Persistent disorder of initiating or maintaining sleep documented in this encounter Additional Health Concerns Assessment Noted Time PHQ-9 Depression Total Score: 0 10/10/19 25 1:31 PM TRANSFER SPECIALIST documented as of this encounter Care Teams Pipe Organ Mechanic Relationship Specialty Start Date End Date John Giang MD [address] [place] [place] [address] PCP - General Internal Medicine 09/26/19 documented as of this encounter
--- OUTSIDE RECORDS SUMMARY | 2025-01-06 13:59 | XMS_ITS | Encounter Summary ---
Author Organization [facility] Address [address] [place] [address] Phone Care Team Providers Care Children'S Entertainer Name Role Phone John Giang MD Primary Care Provider +1- [phone] Reason for Visit * Reason Onset Date Comments Medication Refill 10/24/2024 Encounter Details Date Type Department Care Team (Late st Contact Info) Description 10/24/2024 Refill [facility] - Internal Medicine - [place] [address] [place] [phone] John Giang MD [address] [place] [address] Medication Refill Social History Tobacco Use Types Packs/Day Years Used Date Smoking Tobacco: Never Passive Smoke Exposure: Never Smokeless Tobacco: Never Alcohol Use Standard Drinks/Week Comments Never 0 (1 standard drink = 0.6 oz pur e alcohol) [facility] Utilities Answer Date Recorded In the past 12 months has [employer], gas, oil, or water [employer] threatened to shut off services in your [...] week 10/19/2023 How often do you attend [facility] or confucianist services? Never 10/19/2023 Do you belong to any clubs o r organizations such as anabaptist groups, unions, fraternal or athletic groups, or [...] Total Score - Questions 1-9 0 09/15 [facility] of Occupat ional Health - Occupational Stress [...] encounter Miscellaneous Notes * Telephone Encounter - Kimberly Gan RN - 10/24/2024 10:52 AM CDT PDMP 10/02/24 30 day supply Medication failed the protocol, provider to review and approve the medication order if appropriate. Requested Prescriptions Pending Prescriptions Disp Refills temazepam (RESTORIL) 15 MG Capsule 30 Capsule 0 Sig: Take 1 Capsule by mouth nightly as needed for Sleep. Not Delegated - Off Protocol Failed - 10/24/2024 10:52 AM Failed - This refill cannot be delegated Passed - Visit with relevant provider in past 12 months or upcoming 90 days Recent Visits Date Type Provider Dept 10/10/24 Office Visit John Giang MD [facility] [place] 06/25/24 Office Visit John Giang MD [facility] [place] 01/30/24 Office Visit John Giang MD [facility] [place] Showing recent visits within past 365 days and meeting all other requirements Future Appointments No visits were found meeting these conditions. Showing future appointments within next 90 days and meeting all other requirements * Telephone Encounter - Rachael Grant - 10/24/2024 10:44 AM CDT Med rf Medication - Temazepam Phone - [phone] Pharmacy - [facility] [place] documented in this encounter Plan of Treatment Upcoming Encounters Date Type Department Care Team (Late st Contact Info) Description 01/27/2025 2:15 PM CDT Office Visit [facility] - Internal Medicine [place] [address] [place] [phone] John Giang MD [address] [place] [address] documented as of this encounter Visit Diagnoses Diagnosis Primary insomnia Persistent disorder of initiating or maintaining sleep documented in this encounter Additional Health Concerns Assessment Noted Time PHQ-9 Depression Total Score: 0 10/10/19 25 1:31 PM PHYS THERAPIST documented as of this encounter Care Teams Children'S Entertainer Relationship Specialty Start Date End Date John Giang MD [address] [place] [address] PCP - General Internal Medicine 09/26/19 documented as of this encounter
--- OUTSIDE RECORDS SUMMARY | 2025-01-06 13:59 | XMS_ITS | Encounter Summary ---
Author Organization [facility] Address [address] [place] [address] Phone Care Team Providers Care Rn Placement Name Role Phone John Giang MD Primary Care Provider +1- [phone] Reason for Visit * Reason Comments Medication Refill Encounter Details Date Type Department Care Team (Late st Contact Info) Description 10/24/2022 Refill [facility] - [place] [address] [place] [phone] John Giang MD [address] [place] [address] Medication Refill Social History Tobacco [...] Office Visit John Giang MD [facility] [place] 05/12/22 Office Visit Terri Melvin, PAC [facility] [place] 05/06/22 Office Visit Terri Melvin, PAC [facility] [place] 05/06/22 Appointment Lab, [place] [facility] [place] 01/18/22 Office Visit John Giang MD [facility] [place] Showing recent visits within past 365 days [...] Office Visit John Giang MD [facility] [place] 05/12/22 Office Visit Terri Melvin, PAC [facility] [place] 05/06/22 Office Visit Terri Melvin, PAC [facility] [place] 05/06/22 Appointment Lab, [place] [facility] [place] 01/18/22 Office Visit John Giang MD [facility] [place] Showing recent visits within past 365 days and meeting all other requirements Future Appointments No visits were found meeting these conditions. Showing future appointments within next 90 days and meeting all other requirements * Telephone Encounter - Meseret Suggs - 10/24/2022 10:49 AM CDT Medication Refill Medication: temazepam (RESTORIL) [facility]acy: [facility] [place] documented in this encounter Plan of Treatment Upcoming Encounters Date Type Department Care Team (Late st Contact Info) Description 01/27/2025 2:15 PM CDT Office Visit [facility] - Internal Medicine [facility] [address] [place] [address] John Giang MD [address] [place] [address] documented as of this encounter Visit Diagnoses Diagnosis Primary insomnia Persistent disorder of initiating or maintaining sleep documented in this encounter Additional Health Concerns Assessment Noted Time PHQ-9 Depression Total Score: 0 08/24/19 21 1:00 PM MODEL SET ARTIST documented as of this encounter Care Teams Rn Placement Relationship Specialty Start Date End Date John Giang MD [address] [place] [address] PCP - General Internal Medicine 09/26/19 documented as of this encounter
--- OUTSIDE RECORDS SUMMARY | 2025-01-06 13:59 | XMS_ITS | Encounter Summary ---
Author Organization [facility] Address [address] [place] [address] Phone Care Team Providers Care Publishing Manager Name Role Phone John Giang MD Primary Care Provider Reason for Visit * Reason Comments Medication Refill Encounter Details Date Type Department Care Team (Late Contact Info) Description 04/29/2022 Refill [facility] - [place] [address] [place] [phone] John Giang MD [address] [place] [address] Medication Refill Social History Tobacco [...] Department Care Team (Late Contact Info) Description 01/27/2025 2:15 PM CDT Office Visit [facility] [address] [place] [address] John Giang MD [address] [place] [address] documented as of this encounter Visit Diagnoses Diagnosis Primary insomnia Persistent disorder of initiating or maintaining sleep documented in this encounter Additional Health Concerns Infection Onset Date Last Indicated Resolved Time COVID - 19 2022 05/06/2022 05/16/2022 12:1 6 AM CDT Assessment Noted Time PHQ-9 Depression Total Score: 0 08/24/19 21 1:00 PM DIRECTOR OF PROGRAM MANAGEMENT documented as of this encounter Care Teams Publishing Manager Relationship Specialty Start Date End Date John Giang MD [address] [place] [address] PCP - General Internal Medicine 09/26/19 documented as of this encounter
--- OUTSIDE RECORDS SUMMARY | 2025-01-06 13:59 | XMS_ITS | Encounter Summary ---
Author Organization [facility] Address [address] [place] [address] Phone Care Team Providers Care Fire Engine Pump Operator Name Role Phone John Giang MD Primary Care Provider +1- [phone] Reason for Visit * Reason Comments Medication Refill Encounter Details Date Type Department Care Team (Late st Contact Info) Description 11/27/2024 Refill [facility] Internal Medicine - [place] [address] [place] [phone] John Giang MD [address] [facility] [place] [address] Medication Refill Social History Tobacco Use Types Packs/Day Years Used Date Smoking Tobacco: Never Passive Smoke Exposure: Never Smokeless Tobacco: Never Alcohol Use Standard Drinks/Week Comments Never 0 (1 standard drink = 0.6 oz pur e alcohol) [facility] Utilities Answer Date Recorded In the past 12 months has [employer], [employer], oil, or water [employer] threatened to shut off services in your [...] How often do you attend chur or buddhist services? Never 10/19/2023 Do you belong to any clubs o r organizations such as restoration groups, unions, fraternal or athletic groups, or [...] Total Score - Questions 1-9 0 09/15 [facility] of Occupat ional Health - Occupational Stress [...] place to sleep or slept in a usp (including now)? No 10/19/2023 Education Answer Date [...] Visit [facility] - Internal Medicine [facility] [address] [place] [address] John Giang MD [address] [place] [address] documented as of this encounter Visit Diagnoses Diagnosis Primary insomnia Persistent disorder of initiating or maintaining sleep documented in this encounter Additional Health Concerns Assessment Noted Time PHQ-9 Depression Total Score: 0 10/10/19 25 1:31 PM RAIL CAR WELDER documented as of this encounter Care Teams Fire Engine Pump Operator Relationship Specialty Start Date End Date John Giang MD [address] [place] [address] PCP - General Internal Medicine 09/26/19 documented as of this encounter
--- OUTSIDE RECORDS SUMMARY | 2025-01-06 13:59 | XMS_ITS | Encounter Summary ---
Author Organization [facility] Address [address] [place] [address] Phone Care Team Providers Care Garnett Feeder Name Role Phone John Giang MD Primary Care Provider Reason for Visit * Reason Comments Medication Refill Encounter Details Date Type Department Care Team (Late st Contact Info) Description 05/01/2020 Refill [facility] Internal Medicine - [place] [address] [place] [phone] John Giang MD [address] [facility] [place] [address] Medication Refill Social History [...] Visit [facility] - Internal Medicine [facility] [address] [place] [address] John Giang MD [address] [place] [address] documented as of this encounter Visit Diagnoses Not on filedocumented in this encounter Additional Health Concerns Infection Onset Date Last Indicated Resolved Time COVID - 19 2022 05/06/2022 05/16/2022 12:1 6 AM CDT documented as of this encounter Care Teams Garnett Feeder Relationship Specialty Start Date End Date John Giang MD [address] [place] [address] PCP - General Internal Medicine 09/26/19 documented as of this encounter
--- OUTSIDE RECORDS SUMMARY | 2025-01-06 14:00 | XMS_ITS | Encounter Summary ---
Author Organization [facility] Address [address] [place] [address] Phone Care Team Providers Care Mail Carriers Supervisor Name Role Phone John Giang MD Primary Care Provider +1- [phone] Reason for Visit * Reason Comments Medication Refill Encounter Details Date Type Department Care Team ([facility] Contact Info) Description 10/04/2023 Refill [facility] Internal Medicine [facility] [address] [place] [address] John Giang MD [address] [place] [address] Medication Refill Social History Tobacco [...] Upcoming Encounters Date Type Department Care Team ([facility] Contact Info) Description 01/27/2025 2:15 PM CDT Office Visit [facility] Internal [facility] [address] [place] [address] John Giang MD [address] [place] [address] documented as of this encounter Visit Diagnoses Diagnosis Chronic pain of both shoulders Pain in joint, shoulder region documented in this encounter Additional Health Concerns Assessment Noted Time PHQ-9 Depression Total Score: 0 08/24/19 21 1:00 PM CENTRAL STERILE TECH documented as of this encounter Care Teams Mail Carriers Supervisor Relationship Specialty Start Date End Date John Giang MD [address] [place] [address] PCP - General Internal Medicine 09/26/19 documented as of this encounter
--- OUTSIDE RECORDS SUMMARY | 2025-01-06 14:00 | XMS_ITS | Encounter Summary ---
Author Organization [facility] Address [address] [place] [address] Phone Care Team Providers Care Digital Librarian Name Role Phone John Giang MD Primary Care Provider Reason for Visit * Reason Comments Medication Refill Encounter Details Date Type Department Care Team (Late Contact Info) Description 11/24/2020 Refill [facility] - [place] [address] [place] [phone] John Giang MD [address] [facility] [place] [place] [address] Medication Refill Social History Tobacco [...] Visit [facility] [address] [place] [address] John Giang MD [address] [place] [address] documented as of this encounter Visit Diagnoses Not on filedocumented in this encounter Additional Health Concerns Infection Onset Date Last Indicated Resolved Time COVID - 19 2022 05/06/2022 05/16/2022 12:1 6 AM CDT Assessment Noted Time PHQ-9 Depression Total Score: 0 08/24/19 21 1:00 PM ARCHITECTURAL INTERN documented as of this encounter Care Teams Digital Librarian Relationship Specialty Start Date End Date John Giang MD [address] [place] [address] PCP - General Internal Medicine 09/26/19 documented as of this encounter
--- OUTSIDE RECORDS SUMMARY | 2025-01-06 14:00 | XMS_ITS | Encounter Summary ---
Author Organization [facility] Address [address] [place] [address] Phone Care Team Providers Care Telesales Supervisor Name Role Phone John Giang MD Primary Care Provider [phone]- [phone] Reason for Visit * Reason Comments Medication Refill Encounter Details Date Type Department Care Team (Late st Contact Info) Description 01/09/2024 [facility]ill [facility] - [place] [address] [place] [phone] John Giang MD [address] [facility] [place] [address] Medication Refill Social History Tobacco Use Types Packs/Day Years Used Date Smoking Tobacco: Never Passive Smoke Exposure: Never Smokeless Tobacco: Never Alcohol Use Standard Drinks/Week Comments Never 0 (1 standard drink = 0.6 oz pur e alcohol) [facility] Utilities Answer Date Recorded In the past 12 months has [employer], [employer], oil, or water [employer] threatened to shut off services in your [...] any clubs o r organizations such as caodaism groups, unions, fraternal or athletic groups, or [...] Total Score - Questions 1-9 0 02/2024 [facility] - [...] 10/19/23 Office Visit John Giang MD [facility] 07/20/23 Office Visit John Giang MD [facility] 06/30/23 Office Visit Terri Melvin PAC [facility] 04/13/23 Office Visit John Giang MD [facility] Showing recent visits within past 365 days and meeting all other requirements Future Appointments Date Type Provider Dept 01/30/24 Appointment John Giang MD [facility] Showing future appointments within next 90 days and meeting all other requirements documented in this encounter Plan of Treatment Upcoming Encounters Date Type Department Care Team (Late st Contact Info) Description 01/27/2025 2:15 PM CDT Office Visit [facility] [place] [address] [place] [address] John Giang MD [address] [place] [address] documented as of this encounter Visit Diagnoses Diagnosis Chronic pain of both shoulders Pain in joint, shoulder region documented in this encounter Additional Health Concerns Assessment Noted Time PHQ-9 Depression Total Score: 0 10/19/19 24 2:03 PM RN TRAINING documented as of this encounter Care Teams Telesales Supervisor Relationship Specialty Start Date End Date John Giang MD [address] [place] [address] PCP - General Internal Medicine 09/26/19 documented as of this encounter
--- OUTSIDE RECORDS SUMMARY | 2025-01-06 14:00 | XMS_ITS | Encounter Summary ---
Author Organization [facility] Address [address] [place] [address] Phone Care Team Providers Care Scale Shooter Name Role Phone John Giang MD Primary Care Provider +1- [phone] Reason for Visit * Reason Comments Medication Refill Encounter Details Date Type Department Care Team (Late st Contact Info) Description 01/02/2023 [facility]ill [facility] [place] [address] [place] [phone] John Giang MD [address] [facility] [place] [place] [address] Medication Refill Social History Tobacco [...] Office Visit John Giang MD [facility] 11/21/22 Office Visit John Giang MD [facility] 11/07/22 Office Visit John Giang MD [facility] 10/31/22 Office Visit Terri Melvin, PAC [facility] 06/30/22 Office Visit John Giang MD [facility] 05/12/22 Office Visit Terri Melvin, PAC [facility] 05/06/22 Office Visit Terri Melvin, PAC [facility] 05/06/22 Appointment [place] [facility] 01/18/22 Office Visit John Giang MD [facility] Showing recent visits within past 365 days and meeting all other requirements Future Appointments Date Type Provider Dept 03/27/23 Appointment John Giang MD [facility] Showing future appointments within next 90 days and meeting all other requirements documented in this encounter Plan of Treatment Upcoming Encounters Date Type Department Care Team (Late st Contact Info) Description 01/27/2025 2:15 PM CDT Office Visit [facility] - Internal Medicine - [place] [address] [place] [address] John Giang MD [address] [place] [address] documented as of this encounter Visit Diagnoses Diagnosis Primary insomnia Persistent disorder of initiating or maintaining sleep documented in this encounter Additional Health Concerns Assessment Noted Time PHQ-9 Depression Total Score: 0 08/24/19 21 1:00 PM FASHION DESIGN PROFESSOR documented as of this encounter Care Teams Scale Shooter Relationship Specialty Start Date End Date John Giang MD [address] [place] [address] PCP - General Internal Medicine 09/26/19 documented as of this encounter
--- OUTSIDE RECORDS SUMMARY | 2025-01-06 14:00 | XMS_ITS | Encounter Summary ---
Author Organization [facility] Address [address] [place] [address] Phone Care Team Providers Care Graduate Advisor Name Role Phone John Giang MD Primary Care Provider +1- [phone] Reason for Visit * Reason Comments Medication Refill Encounter Details Date Type Department Care Team (Late Contact Info) Description 12/08/2020 [facility]ill [facility] [place] [address] [place] [phone] John Giang MD [address] [facility] [place] [address] Medication Refill Social History Tobacco [...] [facility] [address] [place] [address] John Giang MD [address] [place] [address] documented as of this encounter Visit Diagnoses Not on filedocumented in this encounter Additional Health Concerns Infection Onset Date Last Indicated Resolved Time COVID - 19 2022 05/06/2022 05/16/2022 12:1 6 AM CDT Assessment Noted Time PHQ-9 Depression Total Score: 0 08/24/19 21 1:00 PM HARNESS TIER documented as of this encounter Care Teams Graduate Advisor Relationship Specialty Start Date End Date John Giang MD [address] [place] [address] PCP - General Internal Medicine 09/26/19 documented as of this encounter
--- OUTSIDE RECORDS SUMMARY | 2025-01-06 14:00 | XMS_ITS | Encounter Summary ---
Author Organization [facility] Address [address] [place] [address] Phone Care Team Providers Care Diaphragm Builder Name Role Phone John Giang MD Primary Care Provider +1- [phone] Reason for Visit * Reason Comments Medication Refill Encounter Details Date Type Department Care Team ([facility] Contact Info) Description 04/20/2021 [facility] [place] [address] [place] [phone] John Giang MD [address] [place] [address] Medication Refill Social History Tobacco [...] Upcoming Encounters Date Type Department Care Team ([facility] Contact Info) Description 01/27/2025 2:15 PM CDT Office Visit [facility] Internal Medicine [place] [address] [place] [address] John Giang MD [address] [place] [address] documented as of this encounter Visit Diagnoses Diagnosis Primary insomnia Persistent disorder of initiating or maintaining sleep documented in this encounter Additional Health Concerns Infection Onset Date Last Indicated Resolved Time COVID - 19 2022 05/06/2022 05/16/2022 12:1 6 AM CDT Assessment Noted Time PHQ-9 Depression Total Score: 0 08/24/19 21 1:00 PM PAINTER RAILROAD CAR documented as of this encounter Care Teams Diaphragm Builder Relationship Specialty Start Date End Date John Giang MD [address] [place] [address] PCP - General Internal Medicine 09/26/19 documented as of this encounter
--- OUTSIDE RECORDS SUMMARY | 2025-01-06 14:00 | XMS_ITS | Encounter Summary ---
Author Organization [facility] Address [address] [place] [address] Phone Care Team Providers Care Senior Firewall Engineer Name Role Phone John Giang MD Primary Care Provider [phone] Reason for Visit * Reason Comments Medication Refill Encounter Details Date Type Department Care Team (Late st Contact Info) Description 10/30/2023 [facility]ill [facility] [place] [address] [place] [phone] John Giang MD [address] [facility] [place] [address] Medication Refill Social History Tobacco Use Types Packs/Day Years Used Date Smoking Tobacco: Never Passive Smoke Exposure: Never Smokeless Tobacco: Never Alcohol Use Standard Drinks/Week Comments Never 0 (1 standard drink = 0.6 oz pur e alcohol) [facility] Utilities Answer Date Recorded In the past 12 months has [employer], [employer], oil, or water [employer] threatened to shut off services in your [...] How often do you attend chur or sabianist services? Never 10/19/2023 Do you belong to any clubs o r organizations such as lutheran groups, unions, fraternal or athletic groups, or [...] Total Score - Questions 1-9 0 02/2024 [facility] - [...] place to sleep or slept in a mcc (including now)? No 10/19/2023 Education Answer Date [...] Office Visit John Giang MD [facility] 07/20/23 Office Visit John Giang MD [facility] 06/30/23 Office Visit Terri Melvin PAC [facility] 04/13/23 Office Visit John Giang MD [facility] 12/22/22 Office Visit John Giang MD [facility] 11/21/22 Office Visit John Giang MD [facility] 11/07/22 Office Visit John Giang MD [facility] [place] 10/31/22 Office Visit Terri Melvin, PAC [facility] [place] Showing recent visits within past 365 days and meeting all other requirements Future Appointments No visits were found meeting these conditions. Showing future appointments within next 90 days and meeting all other requirements documented in this encounter Plan of Treatment Upcoming Encounters Date Type Department Care Team (Late st Contact Info) Description 01/27/2025 2:15 PM CDT Office Visit [facility] - Internal Medicine - [place] [address] [place] [address] John Giang MD [address] [place] [address] documented as of this encounter Visit Diagnoses Diagnosis Chronic pain of both shoulders Pain in joint, shoulder region documented in this encounter Additional Health Concerns Assessment Noted Time PHQ-9 Depression Total Score: 0 10/19/19 24 2:03 PM WELL DRILL OPERATOR HELPER CABLE TOOL documented as of this encounter Care Teams Senior Firewall Engineer Relationship Specialty Start Date End Date John Giang MD [address] [place] [address] PCP - General Internal Medicine 09/26/19 documented as of this encounter
--- OUTSIDE RECORDS SUMMARY | 2025-01-06 14:00 | XMS_ITS | Encounter Summary ---
Author Organization [facility] Address [address] [place] [address] Phone Care Team Providers Care Applications Engineering Manager Name Role Phone John Giang MD Primary Care Provider [phone]- [phone] Reason for Visit * Reason Comments Medication Refill Encounter Details Date Type Department Care Team (Late st Contact Info) Description 01/25/2024 [facility]ill [facility] [place] [address] [place] [phone] John Giang MD [address] [facility] [place] [address] Medication Refill Social History Tobacco Use Types Packs/Day Years Used Date Smoking Tobacco: Never Passive Smoke Exposure: Never Smokeless Tobacco: Never Alcohol Use Standard Drinks/Week Comments Never 0 (1 standard drink = 0.6 oz pur e alcohol) [facility] Utilities Answer Date Recorded In the past 12 months has [employer], [employer], oil, or water [employer] threatened to shut off services in your [...] How often do you attend chur or spiritism services? Never 10/19/2023 Do you belong to any clubs o r organizations such as episcopal groups, unions, fraternal or athletic groups, or [...] Total Score - Questions 1-9 0 02/2024 [facility] - Occupational [...] 10/19/23 Office Visit John Giang MD [facility] 07/20/23 Office Visit John Giang MD [facility] 06/30/23 Office Visit Terri Melvin PAC [facility] 04/13/23 Office Visit John Giang MD [facility] Showing recent visits within past 365 days and meeting all other requirements Future Appointments Date Type Provider Dept 01/30/24 Appointment John Giang MD [facility] Showing future appointments within next 90 days and meeting all other requirements documented in this encounter Plan of Treatment Upcoming Encounters Date Type Department Care Team (Late st Contact Info) Description 01/27/2025 2:15 PM CDT Office Visit [facility] [place] [address] [place] [place] [address] John Giang MD [address] [place] [address] documented as of this encounter Visit Diagnoses Diagnosis Chronic pain of both shoulders Pain in joint, shoulder region documented in this encounter Additional Health Concerns Assessment Noted Time PHQ-9 Depression Total Score: 0 10/19/19 24 2:03 PM OPTOMETRIST/PRACTICE OWNER documented as of this encounter Care Teams Applications Engineering Manager Relationship Specialty Start Date End Date John Giang MD [address] [place] [address] PCP - General Internal Medicine 09/26/19 documented as of this encounter
--- OUTSIDE RECORDS SUMMARY | 2025-01-06 14:00 | XMS_ITS | Encounter Summary ---
Author Organization [facility] Address [address] [place] [address] Phone Care Team Providers Care Land Examiner Name Role Phone John Giang MD Primary Care Provider [phone]- [phone] Reason for Visit * Reason Comments Medication Refill Encounter Details Date Type Department Care Team (Late st Contact Info) Description 08/23/2024 [facility]ill [facility] - [place] [address] [place] [phone] John Giang MD [address] [facility] [place] [address] Medication Refill Social History Tobacco Use Types Packs/Day Years Used Date Smoking Tobacco: Never Passive Smoke Exposure: Never Smokeless Tobacco: Never Alcohol Use Standard Drinks/Week Comments Never 0 (1 standard drink = 0.6 oz pur e alcohol) [facility] Utilities Answer Date Recorded In the past 12 months has [employer], [email or web address], oil, or water [employer] threatened to shut off services in your [...] How often do you attend chur or muslim services? Never 10/19/2023 Do you belong to any clubs o r organizations such as congregational groups, unions, fraternal or athletic groups, or [...] Total Score - Questions 1-9 0 02/2024 [facility] - [...] Visit [facility] [address] [place] [address] John Giang MD [address] [place] [address] documented as of this encounter Visit Diagnoses Diagnosis Primary insomnia Persistent disorder of initiating or maintaining sleep documented in this encounter Additional Health Concerns Assessment Noted Time PHQ-9 Depression Total Score: 0 10/19/19 24 2:03 PM DIRECTOR OF RELIGIOUS ACTIVITIES documented as of this encounter Care Teams Land Examiner Relationship Specialty Start Date End Date John Giang MD [address] [place] [address] PCP - General Internal Medicine 09/26/19 documented as of this encounter
--- OUTSIDE RECORDS SUMMARY | 2025-01-06 14:00 | XMS_ITS | Clinical Summary ---
Author Organization [facility] Address [address] [place] [address] Phone Care Team Providers Care Maintenance Department Manager Name Role Phone John Giang MD Primary Care Provider [phone] Allergies Active Allergy Reactions Criticality Noted Date Comments Sulfa Antibiotics Hives 07/02/2020 Medications acetaminophen (TYLENOL) 500 MG Tablet Take 1,000 mg by mouth every 8 hours as needed for Moderate or more severe pain. Active IBUPROFEN PO Take 400 mg by mouth every 6 hours as needed. Active fluticasone (FLONASE) 50 MCG/ACT SuspensionIndic ations:Allergic rhinitis, unspecified seasonality, unspecified trigger 1 SPRAY BY NASAL ROUTE IN THE MORNING AND AT BEDTIME. USE IN EACH NOSTRIL DIRECTED. 16 mL 03/25/20 24 Active omeprazole (PriLOSEC) 20 MG CAPSULE DELAYED RELEASE Take 20 mg by mouth daily. Active gabapentin (NEURONTIN) 300 MG Capsule Take 1 Capsule by mouth 2 times daily. 60 Capsule 5 09/12/19 25 Active amLODIPine (NORVASC) 5 MG TabletIndicatio ns:Essential hypertension, benign TAKE 1 TABLET BY MOUTH DAILY. 30 Tablet 5 11/16/19 25 Active temazepam (RESTORIL) 15 MG CapsuleIndicati ons:Primary insomnia Take 1 Capsule by mouth nightly as needed for Sleep. 30 Capsule 12/28/19 25 Active traMADol (ULTRAM) 50 MG TabletIndicatio ns:Chronic pain of both shoulders TAKE 1 TABLET BY MOUTH 2 TIMES DAILY NEEDED FOR MODERATE OR MORE SEVERE PAIN. 60 Tablet 12/27/19 25 Active traMADol (ULTRAM) 50 MG TabletIndicatio ns:Chronic pain of both shoulders Take 1 Tablet by mouth 2 times daily as needed for Moderate or more severe pain. 60 Tablet 09/16/19 25 025 Discontinued temazepam (RESTORIL) 15 MG CapsuleIndicati ons:Primary insomnia Take 1 Capsule by mouth nightly as needed for Sleep. 30 Capsule 11/29/19 25 025 Discontinued Active Problems Problem Noted Date Diagnosed Date [...] Encounters Date Type Department Care Team Description [facility] [address] [place] [address] John Giang MD Medication Refill 12/24/2024 [facility] [address] [place] [address] John Giang MD Medication Refill 12/24/2024 [facility] [address] [place] [address] John Giang MD Medication Refill 11/27/2024 [facility] [address] [place] [address] John Giang MD Medication Refill 11/27/2024 [facility] [address] [place] [address] John Giang MD Medication Refill 11/15/2024 [facility] [address] [place] [address] John Giang MD Medication Refill 10/29/2024 [facility] [address] [place] [address] John Giang MD 10/24/2024 [facility] [address] [place] [address] John Giang MD Medication Refill 10/24/2024 Refill [facility] [address] [place] [address] John Giang MD Medication Refill 10/10/2024 1:45 PM STAFF PHYSICAL THERAPIST Office Visit [facility] [address] [place] [address] John Giang MD Essential hypertension, benign (Primary Dx); Idiopathic peripheral neuropathy; Hyperglycemia; GERD without esophagitis; Primary insomnia; Chronic pain of both shoulders Discharge Disposition: Discharged to home or Selfcare 10/10/2024 Travel from Last 3 Months Immunizations Immunization Administration [...] 0.6 oz pur e alcohol) [facility] Utilities Answer Date Recorded In the past 12 months has e [employer], [employer], oil, or water [employer] threatened to shut off services in your [...] often do you attend chur ch or yazdanism services? Never 10/19/2023 Do you belong to any clubs o r organizations such as religious groups, unions, fraternal or athletic groups, or [...] Total Score - Questions 1-9 0 09/15 [facility] - Occupational Stress Questionnaire Answer Date [...] Sign Reading Time Taken Comments Blood Pressure 130/64 10/10/2024 1:28 PM STAFF PHYSICAL THERAPIST Pulse 90 10/10/2024 1:28 PM STAFF PHYSICAL THERAPIST Temperature 36.5 C (97.7 F) 10/10/2024 1:28 PM STAFF PHYSICAL THERAPIST Respiratory Rate 17 02/03/2024 7:41 PM CDT Oxygen Saturation 99% 10/10/2024 1:28 PM STAFF PHYSICAL THERAPIST Inhaled Oxygen Concentration - - Weight 62.6 kg (138 lb) 10/10/2024 1:28 PM STAFF PHYSICAL THERAPIST Height 167.6 cm (5' 6) 10/10/2024 1:28 PM STAFF PHYSICAL THERAPIST Body Mass Index 22.27 10/10/2024 1:28 PM STAFF PHYSICAL THERAPIST Plan of Treatment Upcoming Encounters Date Type Department Care Team (Late st Contact Info) Description 01/27/2025 2:15 PM CDT Office Visit [facility] - [place] [address] [place] [address] John Giang MD [address] [place] [address] Health Maintenance Due Date Last Done Comments DEXA Bone Density 1940 Hepatitis C Virus (HCV) Screening 1940 Pneumococcal Immunization (5 0+ years) Discontinued 03/24/2014 Pneumococcal Immunization Combined Discontinued 2013 DTaP/Tdap/Td Immunization Discontinued 10/28/2022 TdaP Immunization Completed 10/28/2022 Hepatitis B Immunization Aged Out No longer eligible based on patient's age to complete this topic Human Papillomavirus (HPV) Immunization Aged Out No longer eligible b ased on patient's age to complete this topic Influenza Immunization Discontinued Meningococcal Immunization (ACWY) Aged Out No longer eligible based on patient's age to complete this topic Respiratory Syncytial Virus (RSV) Immunization (Adult) Discontinued Rotavirus Immunization Aged Out No lo nger eligible based on patient's age to complete this topic SARS-COV-2 Immunization Discontinued Zoster Immunization Discontinued Insurance [place] [address] MEDICARE C [employer] Care Teams Maintenance Department Manager Relationship Specialty Start Date End Date John Giang MD [address] [place] [address] PCP - General Internal Medicine 09/26/19
--- OUTSIDE RECORDS SUMMARY | 2025-01-06 14:00 | XMS_ITS | Encounter Summary ---
Author Organization [facility] Address [address] [place] [address] Phone Care Team Providers Care Handkerchief Presser Name Role Phone John Giang MD Primary Care Provider [phone]- [phone] Reason for Visit * Reason Comments Medication Refill Encounter Details Date Type Department Care Team (Late st Contact Info) Description 01/25/2021 [facility]ill [facility] [place] [address] [place] [phone] John Giang MD [address] [address] Medication Refill Social History Tobacco [...] Visit [facility] [place] [address] [place] [address] John Giang MD [address] [place] [address] documented as of this encounter Visit Diagnoses Not on filedocumented in this encounter Additional Health Concerns Infection Onset Date Last Indicated Resolved Time COVID - 19 2022 05/06/2022 05/16/2022 12:1 6 AM CDT Assessment Noted Time PHQ-9 Depression Total Score: 0 08/24/19 21 1:00 PM VEHICLE FARE COLLECTOR documented as of this encounter Care Teams Handkerchief Presser Relationship Specialty Start Date End Date John Giang MD [address] [place] [address] PCP - General Internal Medicine 09/26/19 documented as of this encounter
--- OUTSIDE RECORDS SUMMARY | 2025-01-06 14:00 | XMS_ITS | Encounter Summary ---
Author Organization [facility] Address [address] [place] [address] Phone Care Team Providers Care Analysis Engineer Name Role Phone John Giang MD Primary Care Provider [phone] [phone] Reason for Visit * Reason Comments Medication Refill Encounter Details Date Type Department Care Team (Late st Contact Info) Description 02/29/2024 [facility]ill [facility] - [place] [address] [place] [phone] Terri Melvin, [facility] [address] [place] [address] Medication Refill Social History Tobacco Use Types Packs/Day Years Used Date Smoking Tobacco: Never Passive Smoke Exposure: Never Smokeless Tobacco: Never Alcohol Use Standard Drinks/Week Comments Never 0 (1 standard drink = 0.6 oz pur e alcohol) [facility] Utilities Answer Date Recorded In the past 12 months has [employer], gas, oil, or water [employer] threatened to shut off services in your [...] How often do you attend chur or anabaptism services? Never 10/19/2023 Do you belong to any clubs o r organizations such as anabaptism groups, unions, fraternal or athletic groups, or [...] Total Score - Questions 1-9 0 02/2024 [facility] - Occupational [...] Visit [facility] - Internal Medicine [facility] [address] [place] [address] John Giang MD [address] [place] [address] documented as of this encounter Visit Diagnoses Diagnosis Primary insomnia Persistent disorder of initiating or maintaining sleep documented in this encounter Additional Health Concerns Assessment Noted Time PHQ-9 Depression Total Score: 0 10/19/19 24 2:03 PM PUBLIC ADMINISTRATION TEACHER documented as of this encounter Care Teams Analysis Engineer Relationship Specialty Start Date End Date John Giang MD [address] [place] [address] PCP - General Internal Medicine 09/26/19 documented as of this encounter
--- OUTSIDE RECORDS SUMMARY | 2025-01-06 14:00 | XMS_ITS | Encounter Summary ---
Author Organization [facility] Address [address] [place] [address] Phone Care Team Providers Care Financial Services Director Name Role Phone John Giang MD Primary Care Provider [phone]- [phone] Reason for Visit * Reason Comments Medication Refill Encounter Details Date Type Department Care Team (Late Contact Info) Description 10/28/2020 Refill [facility] - [place] [address] [place] [phone] John Giang MD [address] [facility] [place] [address] Medication Refill Social History Tobacco [...] Visit [facility] [address] [place] [address] John Giang MD [address] [place] [address] documented as of this encounter Visit Diagnoses Not on filedocumented in this encounter Additional Health Concerns Infection Onset Date Last Indicated Resolved Time COVID - 19 2022 05/06/2022 05/16/2022 12:1 6 AM CDT Assessment Noted Time PHQ-9 Depression Total Score: 0 08/24/19 21 1:00 PM PICKLE PROCESSOR documented as of this encounter Care Teams Financial Services Director Relationship Specialty Start Date End Date John Giang MD [address] [place] [address] PCP - General Internal Medicine 09/26/19 documented as of this encounter
--- OUTSIDE RECORDS SUMMARY | 2025-01-06 14:00 | XMS_ITS | Encounter Summary ---
Author Organization [facility] Address [address] [place] [address] Phone Care Team Providers Care Steel Rule Inspector Name Role Phone John Giang MD Primary Care Provider [phone]- [phone] Reason for Visit * Reason Comments Medication Refill Encounter Details Date Type Department Care Team (Late st Contact Info) Description 12/08/2023 Refill [facility] - [place] [address] [place] [phone] John Giang MD [address] [facility] [place] [address] Medication Refill Social History Tobacco Use Types Packs/Day Years Used Date Smoking Tobacco: Never Passive Smoke Exposure: Never Smokeless Tobacco: Never Alcohol Use Standard Drinks/Week Comments Never 0 (1 standard drink = 0.6 oz pur e alcohol) [facility] Utilities Answer Date Recorded In the past 12 months has [employer], [employer], oil, or water [employer] threatened to shut off services in your [...] How often do you attend chur or presybeterian services? Never 10/19/2023 Do you belong to any clubs o r organizations such as roman catholic groups, unions, fraternal or athletic groups, or [...] Total Score - Questions 1-9 0 02/2024 [facility] Occupat ional Health - Occupational Stress [...] place to sleep or slept in a chcf (including now)? No 10/19/2023 Education Answer Date [...] Dept 10/19/23 Office Visit John Giang MD [facility] 07/20/23 Office Visit John Giang MD [facility] 06/30/23 Office Visit Terri Melvin PAC [facility] 04/13/23 Office Visit John Giang MD [facility] 12/22/22 Office Visit John Giang MD [facility] Showing recent visits within past 365 days and meeting all other requirements Future Appointments Date Type Provider Dept 01/30/24 Appointment John Giang MD [facility] Showing future appointments within next 90 days and meeting all other requirements documented in this encounter Plan of Treatment Upcoming Encounters Date Type Department Care Team (Late st Contact Info) Description 01/27/2025 2:15 PM CDT Office Visit [facility] [place] [address] [place] [address] John Giang MD [address] [place] [address] documented as of this encounter Visit Diagnoses Diagnosis Primary insomnia Persistent disorder of initiating or maintaining sleep documented in this encounter Additional Health Concerns Assessment Noted Time PHQ-9 Depression Total Score: 0 10/19/19 24 2:03 PM BOTTLE HOUSE CLEANERS SUPERVISOR documented as of this encounter Care Teams Steel Rule Inspector Relationship Specialty Start Date End Date John Giang MD [address] [place] [address] PCP - General Internal Medicine 09/26/19 documented as of this encounter
--- OUTSIDE RECORDS SUMMARY | 2025-01-06 14:00 | XMS_ITS | Encounter Summary ---
Author Organization [facility] Address [address] [place] [address] Phone Care Team Providers Care Production Specialist Name Role Phone John Giang MD Primary Care Provider [phone]- [phone] Reason for Visit * Reason Comments Medication Refill Encounter Details Date Type Department Care Team (Late st Contact Info) Description 08/04/2023 [facility]ill [facility] - [place] [address] [place] [phone] John Giang MD [address] [facility] [place] [address] Medication Refill Social History Tobacco [...] Office Visit John Giang MD [facility] [place] 06/30/23 Office Visit Terri Melvin, [facility] [place] 04/13/23 Office Visit John Giang MD [facility] [place] 12/22/22 Office Visit John Giang MD [facility] [place] 11/21/22 Office Visit John Giang MD [facility] [place] 11/07/22 Office Visit John Giang MD [facility] [place] 10/31/22 Office Visit Terri Melvin, [facility] [place] Showing recent visits within past 365 days and meeting all other requirements Future Appointments Date Type Provider Dept 10/19/23 Appointment John Giang MD [facility] [place] Showing future appointments within next 90 days and meeting all other requirements GE DISPOSAL ENGINEER documented in this encounter Plan of Treatment Upcoming Encounters Date Type Department Care Team (Late st Contact Info) Description 01/27/2025 2:15 PM CDT Office Visit [facility] - [place] [address] [place] [address] John Giang MD [address] [place] [address] documented as of this encounter Visit Diagnoses Diagnosis Chronic pain of both shoulders Pain in joint, shoulder region documented in this encounter Additional Health Concerns Assessment Noted Time PHQ-9 Depression Total Score: 0 08/24/19 21 1:00 PM SEWAGE DISPOSAL ENGINEER documented as of this encounter Care Teams Production Specialist Relationship Specialty Start Date End Date John Giang MD [address] [place] [address] PCP - General Internal Medicine 09/26/19 documented as of this encounter
--- OUTSIDE RECORDS SUMMARY | 2025-01-06 14:00 | XMS_ITS | Encounter Summary ---
Author Organization [facility] Address [address] [place] [address] Phone Care Team Providers Care Test Consultant Name Role Phone John Giang MD Primary Care Provider [phone]- [phone] Reason for Visit * Reason Comments Medication Refill Encounter Details Date Type Department Care Team (Late st Contact Info) Description 11/20/2023 Refill [facility] - [place] [address] [place] [phone] John Giang MD [address] [facility] [place] [place] [address] Medication Refill Social History Tobacco Use Types Packs/Day Years Used Date Smoking Tobacco: Never Passive Smoke Exposure: Never Smokeless Tobacco: Never Alcohol Use Standard Drinks/Week Comments Never 0 (1 standard drink = 0.6 oz pur e alcohol) [facility] Utilities Answer Date Recorded In the past 12 months has [employer], [employer], oil, or water [employer] threatened to shut off services in your [...] How often do you attend chur or gnosticism services? Never 10/19/2023 Do you belong to any clubs o r organizations such as quaker groups, unions, fraternal or athletic groups, or [...] place to sleep or slept in a alf (including now)? No 10/19/2023 Education Answer Date [...] 10/19/23 Office Visit John Giang MD [facility] 07/20/23 Office Visit John Giang MD [facility] 06/30/23 Office Visit Terri Melvin PAC [facility] [place] 04/13/23 Office Visit John Giang MD [facility] 12/22/22 Office Visit John iGang MD [facility] 11/21/22 Office [facility] [place] Show[facility] recent visits within past 365 days and meeting all other requirements Future Appointments Date Type Provider Dept 01/30/24 Appointment John Giang MD [facility] [place] Showing future appointments within next 90 days and meeting all other requirements documented in this encounter Plan of Treatment Upcoming Encounters Date Type Department Care Team (Late st Contact Info) Description 01/27/2025 2:15 PM CDT Office Visit [facility] - [facility] - [place] [address] [place] [address] John Giang MD [address] [place] [address] documented as of this encounter Visit Diagnoses Diagnosis Chronic pain of both shoulders Pain in joint, shoulder region documented in this encounter Additional Health Concerns Assessment Noted Time PHQ-9 Depression Total Score: 0 10/19/19 24 2:03 PM BLUING OVEN TENDER documented as of this encounter Care Teams Test Consultant Relationship Specialty Start Date End Date John Giang MD [address] [place] [address] PCP - General Internal Medicine 09/26/19 documented as of this encounter
--- OUTSIDE RECORDS SUMMARY | 2025-01-06 14:00 | XMS_ITS | Encounter Summary ---
Author Organization [facility] Address [address] [place] [address] Phone Care Team Providers Care Sales Center Associate Name Role Phone John Giang MD Primary Care Provider [phone]- [phone] Reason for Visit * Reason Comments Medication Refill Encounter Details Date Type Department Care Team (Late st Contact Info) Description 09/16/2024 Refill [facility] - [place] [address] [place] [phone] Terri Melvin, [facility] [address] [place] [address] Medication Refill Social History Tobacco Use Types Packs/Day Years Used Date Smoking Tobacco: Never Passive Smoke Exposure: Never Smokeless Tobacco: Never Alcohol Use Standard Drinks/Week Comments Never 0 (1 standard drink = 0.6 oz pur e alcohol) [facility] Utilities Answer Date Recorded In the past 12 months has [employer], gas, oil, or water [employer] threatened to shut off services in your [...] How often do you attend chur or zoroastrian services? Never 10/19/2023 Do you belong to any clubs o r organizations such as holiness groups, unions, fraternal or athletic groups, or [...] Total Score - Questions 1-9 0 02/2024 [facility] of Occupat ional Health - Occupational [...] place to sleep or slept in a long term (including now)? No 10/19/2023 Education Answer Date [...] Visit [facility] - Internal Medicine [place] [address] [place] [address] John Giang MD [address] [place] [address] documented as of this encounter Visit Diagnoses Diagnosis Chronic pain of both shoulders Pain in joint, shoulder region documented in this encounter Additional Health Concerns Assessment Noted Time PHQ-9 Depression Total Score: 0 10/19/19 24 2:03 PM LIFEGUARD documented as of this encounter Care Teams Sales Center Associate Relationship Specialty Start Date End Date John Giang MD [address] [place] [address] PCP - General Internal Medicine 09/26/19 documented as of this encounter
--- OUTSIDE RECORDS SUMMARY | 2025-01-06 14:00 | XMS_ITS | Encounter Summary ---
Author Organization [facility] Address [address] [place] [address] Phone Care Team Providers Care Emergency Communications Officer Name Role Phone John Giang MD Primary Care Provider [phone]- [phone] Reason for Visit * Reason Comments Medication Refill Encounter Details Date Type Department Care Team (Late st Contact Info) Description 12/13/2023 Refill [facility] - [place] [address] [place] [phone] John Giang MD [address] [facility] [place] [address] Medication Refill Social History Tobacco Use Types Packs/Day Years Used Date Smoking Tobacco: Never Passive Smoke Exposure: Never Smokeless Tobacco: Never Alcohol Use Standard Drinks/Week Comments Never 0 (1 standard drink = 0.6 oz pur e alcohol) [facility] Utilities Answer Date Recorded In the past 12 months has [employer], [employer] [place] [employer], oil, or water [employer] threatened to shut off services in your [...] any clubs o r organizations such as jew groups, unions, fraternal or athletic groups, or [...] - Questions 1-9 0 02/2024 [facility] of Occupat ional Health - Occupational [...] 10/19/23 Office Visit John Giang MD [facility] 07/20/23 Office Visit John Giang MD [facility] 06/30/23 Office Visit Terri Melvin PAC [facility] 04/13/23 Office Visit John Giang MD [facility] 12/22/22 Office Visit John Giang MD [facility] Showing recent visits within past 365 days [...] Internal Medicine - [place] [address] [place] [address] John Giang MD [address] [place] [address] documented as of this encounter Visit Diagnoses Diagnosis Chronic pain of both shoulders Pain in joint, shoulder region documented in this encounter Additional Health Concerns Assessment Noted Time PHQ-9 Depression Total Score: 0 10/19/19 24 2:03 PM SKIDDER LOADER documented as of this encounter Care Teams Emergency Communications Officer Relationship Specialty Start Date End Date John Giang MD [address] [place] [address] PCP - General Internal Medicine 09/26/19 documented as of this encounter
--- OUTSIDE RECORDS SUMMARY | 2025-01-06 14:00 | XMS_ITS | Encounter Summary ---
Author Organization [facility] Address [address] [place] [address] Phone Care Team Providers Care Banquet Coordinator Name Role Phone John Giang MD Primary Care Provider Reason for Visit * Reason Comments Medication Refill Encounter Details Date Type Department Care Team (Late Contact Info) Description 08/25/2022 Refill [facility] - [place] [address] [place] [phone] John Giang MD [address] [place] [address] Medication Refill Social History Tobacco [...] Medicine shoppe out of medication, Send to [facility] DESIGNER/CREATIVE DIRECTOR documented in this encounter Plan of Treatment Upcoming Encounters Date Type Department Care Team (Late Contact Info) Description 01/27/2025 2:15 PM CDT Office Visit [facility] - Internal Medicine - [place] [address] [place] [address] John Giang MD [address] [place] [address] documented as of this encounter Visit Diagnoses Diagnosis Primary insomnia Persistent disorder of initiating or maintaining sleep documented in this encounter Additional Health Concerns Assessment Noted Time PHQ-9 Depression Total Score: 0 08/24/19 21 1:00 PM GAME DESIGNER/CREATIVE DIRECTOR documented as of this encounter Care Teams Banquet Coordinator Relationship Specialty Start Date End Date John Giang MD [address] [place] [address] PCP - General Internal Medicine 09/26/19 documented as of this encounter
--- OUTSIDE RECORDS SUMMARY | 2025-01-06 14:00 | XMS_ITS | Encounter Summary ---
Author Organization [facility] Address [address] [place] [address] Phone Care Team Providers Care Dielectric Embossing Machine Operator Name Role Phone John Giang MD Primary Care Provider +1- [phone] Reason for Visit * Reason Comments Medication Refill Encounter Details Date Type Department Care Team (Late st Contact Info) Description 10/04/2023 Refill [facility] - [place] [address] [place] [phone] Terri Melvin, [facility] [address] [place] [address] Medication Refill Social History Tobacco [...] Office Visit John Giang MD [facility] [place] 06/30/23 Office Visit Terri Melvin, PAC [facility] [place] 04/13/23 Office Visit John Giang MD [facility] [place] 12/22/22 Office Visit John Giang MD [facility] [place] 11/21/22 Office Visit John Giang MD [facility] [place] 11/07/22 Office Visit John Giang MD [facility] [place] 10/31/22 Office Visit Terri Melvin, [facility] [place] Showing recent visits within past 365 days and meeting all other requirements Future Appointments Date Type Provider Dept 10/19/23 Appointment John Giang MD [facility] [place] Showing future appointments within next 90 days and meeting all other requirements AND BEVERAGE SERVER documented in this encounter Plan of Treatment Upcoming Encounters Date Type Department Care Team (Late st Contact Info) Description 01/27/2025 2:15 PM CDT Office Visit [facility] - [place] [address] [place] [place] [address] John Giang MD [address] [place] [address] documented as of this encounter Visit Diagnoses Not on filedocumented in this encounter Additional Health Concerns Assessment Noted Time PHQ-9 Depression Total Score: 0 08/24/19 1:00 PM FOOD AND BEVERAGE SERVER documented as of this encounter Care Teams Dielectric Embossing Machine Operator Relationship Specialty Start Date End Date John Giang MD [address] [place] [address] PCP - General Internal Medicine 09/26/19 documented as of this encounter
[2025-01-06 14:13] VITALS: BP 134/60; PULSE 97; RESP 16; TEMP 36.2; O2SAT 99
--- NOTE | 2025-01-06 14:31 | ED_ITS ---
HPI - URI/Sore Throat General Chief Complaint: Upper Respiratory Infection Stated Complaint: Nasal Congestion Time Seen by Provider: 01/06/25 14:32 Source: patient and RN notes reviewed Mode of arrival: ambulatory Limitations: no limitations History of Present Illness HPI Narrative: 84-year-old female presented for complaint of sinus pain for 1 week. Says I feel so bad. endorses pain to the nose and under the eyes. Taking Sudafed. Denies shortness of breath, wheezing nausea vomiting, fevers or chills MD elicited complaint: cough Related Data Home Medications ?Medication ?Instructions ?Recorded ?Confirmed ?Last Taken ?Type amlodipine 10 mg tablet 10 mg PO DAILY 07/21/20 09/28/24 Unknown History temazepam 15 mg capsule 15 mg PO HS 07/21/20 08/26/21 Unknown History omeprazole 20 mg capsule,delayed 20 mg PO DAILY 08/26/21 08/26/21 Unknown History release tramadol 50 mg tablet See Rx Instructions .Route .COMPLEX 08/26/21 01/06/25 Unknown History gabapentin 300 mg capsule mg 01/24/24 Unknown History amlodipine 5 mg tablet mg 09/28/24 Unknown History Allergies Allergy/AdvReac Type Severity Reaction Status Date / Time Sulfa (Sulfonamide Allergy Unknown Unknown Verified 01/06/25 14:09 Antibiotics) Review of Systems Review of Systems: CONSTITUTIONAL: Denies malaise, body aches, chills, sweats, fever EYES: Denies visual changes, redness, or discharge ENT: Reports rhinorrhea, congestion, sinus pain, denies otalgia, sore throat CARDIOVASCULAR: Denies chest pain, palpitations, edema RESPIRATORY: Reports cough, post nasal drainage. Denies dyspnea GASTROINTESTINAL: Denies abdominal pain, nausea, vomiting, diarrhea SKIN: Denies rash or itching NEUROLOGIC: Denies headache PMFSH Past Medical History Medical History Arthritis Fracture of right wrist Insomnia Neuropathy Sinusitis Hypertension Surgical History Surgical History History of cholecystectomy Family History Family History Mother Family history non-contributory Social History Social History Smoking status: Never smoker Alcohol intake: never Substance use: never Gender identity (if verbalized by the patient): Female Exam Narrative: GENERAL: well-appearing, nontoxic no acute distress. EYES: conjunctivae clear ENT: Mucous membranes moist. Nasal and maxillary tenderness with palpation. TM pearly castro with dull light reflex bilaterally; no tragal tenderness. Oropharynx not erythematous without lesions or exudate, no drooling, no hoarse ness, no trismus, uvula midline. No tripod positioning, muffled voice, soft palate or pharyngeal wall bulging NECK: Supple. No lymphadenopathy CHEST: Clear to auscultation, breath sounds equal. No wheezing, rhonchi, rales, or stridor. No respiratory distress, speaks in full sentences. HEART: Regular rate and rhythm. SKIN: Warm, dry, no rash. NEURO: Alert and oriented x3. PSYCH: Normal mood and affect Course Course Emergency Course: Patient is aware of diagnosis, understands and agrees to treatment plan. Anticipatory guidance given. Patient agrees to follow-up as directed and is aware of reasons to seek care at the emergency department. Portions of this record may have been created with voice recognition software Level of Care: Express Care Visit Vital Signs Vital signs: Vital Signs Temperature 97.1 F L 01/06/25 14:13 Pulse Rate 97 01/06/25 14:13 Respiratory Rate 16 01/06/25 14:13 Blood Pressure 134/60 01/06/25 14:13 Pulse Oximetry 99 01/06/25 14:13 Oxygen Delivery Room Air 01/06/25 14:13 Temperature 97.1 F L 01/06/25 14:13 Pulse Rate 97 01/06/25 14:13 Respiratory Rate 16 01/06/25 14:13 Blood Pressure 134/60 01/06/25 14:13 Pulse Oximetry 99 01/06/25 14:13 Oxygen Delivery Room Air 01/06/25 14:13 reviewed MDM - URI/Sore Throat MDM Narrative Medical decision making narrative: Discussed physical exam findings. Advised supportive measures and signs/symp toms to go to the ER. Pt is appropriate for outpt treatment and f/u. Differential Diagnosis Differential diagnosis: Likely upper respiratory infection, sinusitis and viral infection Discharge Plan Discharge Clinical Impression: Upper respiratory infection Patient Disposition: Home Condition: Stable Instructions: Antibiotic Form, Sinusitis (ED) Additional Instructions: take antibiotic as directed Recommend Flonase spray and Zyrtec (or Claritin/Xiao) over the counter Cough syrup may cause drowsiness; avoid driving or take it at night time. Tylenol 1000mg every 8 hours as needed for pain Symptomatic treatment includes: rest, fluids, and increase humidity of the air at home. Follow up with your primary care provider in 1 week. Go to the ER for worsening symptoms or concerns. Patient Language: Lithuanian Prescriptions: New amoxicillin-pot clavulanate 875-125 mg tablet 1 tablet PO Q12H 7 Days Qty: 14 0RF No Action amlodipine 5 mg tablet amoxicillin-pot clavulanate 875-125 mg tablet 1 tablet PO Q12H Qty: 20 0RF temazepam 15 mg Capsule 15 mg PO HS amlodipine 10 mg Tablet 10 mg PO DAILY tramadol 50 mg tablet See Rx Instructions .ROUTE .COMPLEX Rx Instructions: as prescribed omeprazole 20 mg capsule,delayed release(DR/EC) 20 mg PO DAILY loratadine [Claritin] 10 mg tablet 10 mg PO DAILY Qty: 20 0RF gabapentin 300 mg capsule Follow-up/Referrals: Rahat,John Pepe MD [Primary Care Provider] - Time of Disposition: 14:36
== END 2025-01-06 14:39 | disposition home or self-care (01) ==
PROVIDERS: Emergency Provider Nurse Practitioner Family; PCP Internal Medicine
DX: J06.9 Acute upper respiratory infection, unspecified (principal); M19.90 Unspecified osteoarthritis, unspecified site; I10 Essential (primary) hypertension; G62.9 Polyneuropathy, unspecified
CPT/HCPCS: 99213; G0463

== ENCOUNTER 2025-05-25 14:18 | Emergency (ER) | payer MEDICARE, SELFPAY ==
--- OUTSIDE RECORDS SUMMARY | 2025-05-25 14:20 | XMS_ITS | Encounter Summary ---
Author Organization [facility] Address [address] [place] [address] Phone Care Team Providers Care Biology Instructor Name Role Phone John Giang MD Primary Care Provider [phone] Reason for Visit * Reason Comments Medication Refill Encounter Details Date Type Department Care Team (Late st Contact Info) Description 01/30/2023 [facility]ill [facility] - [place] [address] [place] [phone] John Giang MD [address] [place] [address] Medication Refill Social History Tobacco Use Types [...] Office Visit John Giang MD [facility] [place] 11/21/22 Office Visit John Giang MD [facility] [place] 11/07/22 Office Visit John Giang MD [facility] [place] 10/31/22 Office Visit eTrri Melvin, PAC [facility] [place] 06/30/22 Office Visit John Giang MD [facility] [place] 05/12/22 Office Visit Terri Melvin, PAC [facility] [place] 05/06/22 Office Visit Terri Melvin, PAC [facility] [place] 05/06/22 Appointment Lab, [place] [facility] [place] Showing recent visits within past 365 days and meeting all other requirements Future Appointments Date Type Provider Dept 03/27/23 Appointment John Giang MD [facility] [place] Showing future appointments within next 90 days and meeting all other requirements documented in this encounter Plan of Treatment Upcoming Encounters Date Type Department Care Team (Late st Contact Info) Description 05/29/2025 3:20 PM CDT Office Visit [facility] - Primary Care - [place] [address] [place] [address] John Giang MD [address] [place] [address] documented as of this encounter Visit Diagnoses Diagnosis Primary insomnia Persistent disorder of initiating or maintaining sleep documented in this encounter Additional Health Concerns Assessment Noted Time PHQ-9 Depression Total Score: 0 08/24/19 21 1:00 PM BARREL LOADER AND CLEANER documented as of this encounter Care Teams Biology Instructor Relationship Specialty Start Date End Date John Giang MD PCP - General Internal Medicine 09/26/19 documented as of this encounter
--- OUTSIDE RECORDS SUMMARY | 2025-05-25 14:20 | XMS_ITS | Encounter Summary ---
Author Organization [facility] Address [address] [place] [address] Phone Care Team Providers Care Wastewater Project Manager Name Role Phone John Giang MD Primary Care Provider [phone]- [phone] Reason for Visit * Reason Comments Medication Refill Encounter Details Date Type Department Care Team (Late st Contact Info) Description 01/30/2023 [facility]ill [facility] - [place] [address] [place] [address] Terri Melvin, [facility] [address] [place] [address] Medication Refill Social History Tobacco [...] Description 05/29/2025 3:20 PM CDT Office Visit [facility] - Primary Care - [place] [address] [place] [address] John Giang MD [address] [place] [address] documented as of this encounter Visit Diagnoses Diagnosis Chronic pain of both shoulders Pain in joint, shoulder region documented in this encounter Additional Health Concerns Assessment Noted Time PHQ-9 Depression Total Score: 0 08/24/19 21 1:00 PM HIGH REACH OPERATOR documented as of this encounter Care Teams Wastewater Project Manager Relationship Specialty Start Date End Date John Giang MD PCP - General Internal Medicine 09/26/19 documented as of this encounter
--- OUTSIDE RECORDS SUMMARY | 2025-05-25 14:20 | XMS_ITS | Encounter Summary ---
Author Organization [facility] Address [address] [place] [address] Phone Care Team Providers Care Academic Affairs Coordinator Name Role Phone John Giang MD Primary Care Provider [phone]- [phone] Reason for Visit * Reason Comments Medication Refill Encounter Details Date Type Department Care Team (Late Contact Info) Description 04/29/2022 Refill [facility] - [place] [address] [place] [address] John Giang MD [address] [place] [address] Medication Refill Social History Tobacco [...] Department Care Team (Late Contact Info) Description 05/29/2025 3:20 PM CDT Office Visit [facility] - Primary Care - [place] [address] [place] [address] John Giang MD [address] [place] [address] documented as of this encounter Visit Diagnoses Diagnosis Primary insomnia Persistent disorder of initiating or maintaining sleep documented in this encounter Additional Health Concerns Infection Onset Date Last Indicated Resolved Time COVID - 19 2022 05/06/2022 05/16/2022 12:1 6 AM CDT Assessment Noted Time PHQ-9 Depression Total Score: 0 08/24/19 21 1:00 PM DRY END OPERATOR documented as of this encounter Care Teams Academic Affairs Coordinator Relationship Specialty Start Date End Date John Giang MD PCP - General Internal Medicine 09/26/19 documented as of this encounter
--- OUTSIDE RECORDS SUMMARY | 2025-05-25 14:20 | XMS_ITS | Encounter Summary ---
Author Organization [facility] Address [address] [place] [address] Phone Care Team Providers Care Apartment Community Assistant Manager Name Role Phone John Giang MD Primary Care Provider [phone]- [phone] Reason for Visit * Reason Comments Medication Refill Encounter Details Date Type Department Care Team (Late st Contact Info) Description 06/28/2022 Refill [facility] - [place] [address] [place] [address] John Giang MD [address] [place] [address] Medication Refill Social History Tobacco [...] Coronavirus/COVID-19? No / Unsure 06/30/2022 10:45 AM ASSOCIATE DIRECTOR OF BIOSTATISTICS documented as of this encounter Miscellaneous Notes * Telephone Encounter - Margarita Baer RN - 06/28/2022 3:19 PM CST duplicate CIATE DIRECTOR OF BIOSTATISTICS documented in this encounter Plan of Treatment Upcoming Encounters Date Type Department Care Team (Late st Contact Info) Description 05/29/2025 3:20 PM CDT Office [facility] - Primary Care - [place] [address] [place] [address] John Giang MD [address] [place] [address] documented as of this encounter Visit Diagnoses Diagnosis Primary insomnia Persistent disorder of initiating or maintaining sleep documented in this encounter Additional Health Concerns Assessment Noted Time PHQ-9 Depression Total Score: 0 08/24/19 21 1:00 PM ASSOCIATE DIRECTOR OF BIOSTATISTICS documented as of this encounter Care Teams Apartment Community Assistant Manager Relationship Specialty Start Date End Date John Giang MD PCP - General Internal Medicine 09/26/19 documented as of this encounter
--- OUTSIDE RECORDS SUMMARY | 2025-05-25 14:20 | XMS_ITS | Encounter Summary ---
Author Organization [facility] Address [address] [place] [address] Phone Care Team Providers Care Chief Substation Operator Name Role Phone John Giang MD Primary Care Provider [phone]- [phone] Reason for Visit * Reason Comments Medication Refill Encounter Details Date Type Department Care Team (Late st Contact Info) Description 06/25/2022 Refill [facility] - [place] [address] [place] [address] John Giang MD [address] [place] [address] Medication Refill Social History Tobacco [...] John Giang MD - 06/27/2022 7:52 AM SECURITY ALARM TECHNICIAN Refill denied - See Refusal reason RITY ALARM TECHNICIAN * Telephone Encounter - Ileana Tapia RN [...] Provider Dept 05/12/22 Office Visit Terri Melvin, PAC [facility] [place] 05/06/22 Office Visit Terri Melvin, PAC [facility] [place] 05/06/22 Appointment Lab, [place] [facility] [place] 01/18/22 Office Visit John Giang MD [facility] [place] 10/15/21 Office Visit John Giang MD [facility] [place] Showing recent visits within past 365 days and meeting all other requirements Future Appointments No visits were found meeting these conditions. Showing future appointments within next 90 days and meeting all other requirements RITY ALARM TECHNICIAN documented in this encounter Plan of Treatment Upcoming Encounters Date Type Department Care Team (Late st Contact Info) Description 05/29/2025 3:20 PM CDT Office Visit [facility] - Primary Care - [place] [address] [place] [address] John Giang MD [address] [place] [address] documented as of this encounter Visit Diagnoses Diagnosis Primary insomnia Persistent disorder of initiating or maintaining sleep documented in this encounter Additional Health Concerns Assessment Noted Time PHQ-9 Depression Total Score: 0 08/24/19 21 1:00 PM SECURITY ALARM TECHNICIAN documented as of this encounter Care Teams Chief Substation Operator Relationship Specialty Start Date End Date John Giang MD PCP - General Internal Medicine 09/26/19 documented as of this encounter
--- OUTSIDE RECORDS SUMMARY | 2025-05-25 14:20 | XMS_ITS | Encounter Summary ---
Author Organization [facility] Address [address] [place] [address] Phone Care Team Providers Care Senior It Specialist Name Role Phone John Giang MD Primary Care Provider [phone]- [phone] Reason for Visit * Reason Comments Medication Refill Encounter Details Date Type Department Care Team (Late st Contact Info) Description 07/29/2020 Refill [facility] - [place] [address] [place] [address] John Giang MD [address] [place] [address] Medication Refill Social History Tobacco [...] COVID-19? No / Unsure 07/19/2020 3:24 AM JUNIOR ACCOUNTANT BOOKKEEPER documented as of this encounter Miscellaneous Notes * Telephone Encounter - Ileana Tapia RN - 07/29/2020 7:59 AM CST Please review and sign. OR ACCOUNTANT BOOKKEEPER documented in this encounter Plan of Treatment Upcoming Encounters Date Type Department Care Team (Late st Contact Info) Description 05/29/2025 3:20 PM CDT Office Visit [facility] - Primary Care - [place] [address] [place] [address] John Giang MD [address] [place] [address] documented as of this encounter Visit Diagnoses Not on filedocumented in this encounter Additional Health Concerns Infection Onset Date Last Indicated Resolved Time COVID - 19 2022 05/06/2022 05/16/2022 12:1 6 AM CDT Assessment Noted Time PHQ-9 Depression Total Score: 0 06/01/20 20 2:00 PM CDT documented as of this encounter Care Teams Senior It Specialist Relationship Specialty Start Date End Date John Giang MD PCP - General Internal Medicine 09/26/19 documented as of this encounter
--- OUTSIDE RECORDS SUMMARY | 2025-05-25 14:20 | XMS_ITS | Encounter Summary ---
Author Organization [facility] Address [address] [place] [address] Phone Care Team Providers Care Radiology Clerk Name Role Phone John Giang MD Primary Care Provider [phone]- [phone] Reason for Visit * Reason Comments Medication Refill Encounter Details Date Type Department Care Team ([facility] Contact Info) Description 03/29/2023 Refill [facility] - Internal Medicine - [place] [address] [place] [address] John Giang MD [address] [place] [address] Medication Refill Social History Tobacco Use [...] Description 05/29/2025 3:20 PM CDT Office Visit [facility] - Primary Care - [place] [address] [place] [address] John Giang MD [address] [place] [address] documented as of this encounter Visit Diagnoses Diagnosis Primary insomnia Persistent disorder of initiating or maintaining sleep documented in this encounter Additional Health Concerns Assessment Noted Time PHQ-9 Depression Total Score: 0 08/24/19 21 1:00 PM MD PSYCHIATRY documented as of this encounter Care Teams Radiology Clerk Relationship Specialty Start Date End Date John Giang MD PCP - General Internal Medicine 09/26/19 documented as of this encounter
--- OUTSIDE RECORDS SUMMARY | 2025-05-25 14:21 | XMS_ITS | Encounter Summary ---
Author Organization [facility] Address [address] [place] [address] Phone Care Team Providers Care Lard Renderer Name Role Phone John Giang MD Primary Care Provider [phone]- [phone] Reason for Visit * Reason Comments Medication Refill Encounter Details Date Type Department Care Team (Late st Contact Info) Description 01/25/2021 Refill [facility] - [place] [address] [place] [address] John Giang MD [address] [place] [address] Medication Refill Social History Tobacco [...] Description 05/29/2025 3:20 PM CDT Office Visit [facility] - Primary Care - [place] [address] [place] [address] John Giang MD [address] [place] [address] documented as of this encounter Visit Diagnoses Not on filedocumented in this encounter Additional Health Concerns Infection Onset Date Last Indicated Resolved Time COVID - 19 2022 05/06/2022 05/16/2022 12:1 6 AM CDT Assessment Noted Time PHQ-9 Depression Total Score: 0 08/24/19 21 1:00 PM DIRECTOR OF TAX SERVICES documented as of this encounter Care Teams Lard Renderer Relationship Specialty Start Date End Date John Giang MD PCP - General Internal Medicine 09/26/19 documented as of this encounter
--- OUTSIDE RECORDS SUMMARY | 2025-05-25 14:21 | XMS_ITS | Clinical Summary ---
Author Organization [facility] Address [address] [place] [address] Phone Care Team Providers Care Typesetter Apprentice Name Role Phone John Giang MD Primary [...] NOSTRIL DIRECTED. 16 mL 03/25/20 24 Active pravastatin (PRAVACHOL) 20 MG Tablet Take 1 Tablet by mouth daily. 30 Tablet 3 01/28/20 25 Active vitamin b-12 (CYANOCOBALAMIN ) 500 MCG Tablet Take 1 Tablet by mouth daily. 90 Tablet 1 01/28/20 25 Active gabapentin (NEURONTIN) 300 MG Capsule Take 1 Capsule by mouth 2 times daily. 60 Capsule 5 01/30/20 25 Active traMADol (ULTRAM) 50 MG TabletIndicatio ns:Chronic pain of both shoulders Take 1 Tablet by mouth 2 times daily as needed for Moderate or more severe pain. 60 Tablet 03/24/20 25 Active amLODIPine (NORVASC) 5 MG TabletIndicatio ns:Essential hypertension, benign TAKE 1 TABLET BY MOUTH DAILY. 30 Tablet 5 05/13/20 25 Active temazepam (RESTORIL) 15 MG CapsuleIndicati ons:Primary insomnia Take 1 Capsule by mouth nightly as needed for Sleep. 30 Capsule 05/19/20 25 Active amLODIPine (NORVASC) 5 MG TabletIndicatio ns:Essential hypertension, benign TAKE 1 TABLET BY MOUTH DAILY. 30 Tablet 5 11/16/19 25 025 Discontinued temazepam (RESTORIL) 15 MG CapsuleIndicati ons:Primary insomnia Take 1 Capsule by mouth nightly as needed for Sleep. 30 Capsule 04/19/20 25 025 Discontinued(Re order) Active Problems Problem Noted Date Diagnosed Date Other hyperlipidemia 01/27/2025 Primary osteoarthritis of both hips 01/30/2024 Allergic [...] Encounters Date Type Department Care Team Description 05/23/2025 Telephone [facility] [place] [address] [place] [address] John Giang MD Medication Refill 05/15/2025 Refill [facility] - [place] [address] [place] [address] John Giang MD Medication Refill 05/15/2025 Refill [facility] [place] [address] [place] [address] John Giang MD Medication Refill 05/13/2025 Refill [facility] - Internal Medicine - [place] [address] [facility] [address] John Giang MD Medication Refill 04/17/2025 [facility] [address] [place] [address] John Giang MD Medication Refill 04/17/2025 [facility] [place] [address] [place] [address] John Giang MD Medication Refill 03/19/2025 [facility] [address] [place] [address] John Giang MD Medication Refill 03/19/2025 [facility] [address] [place] [address] John Giang MD Medication Refill 03/19/2025 [facility] [place] [address] [place] [address] John Giang MD Medication Refill from Last [...] drink = 0.6 oz pur e alcohol) [place] Utilities Answer Date Recorded In the past 12 months has [employer], gas, oil, or water company threatened to shut off services in your home? No 10/19/2023 Social Connection and Isolation Panel Answer Date Recorded In a typical week, how many times do you talk on the phone with family, friends, or neighbors? More than three times a week 10/19/2023 How often do you get togethe r with friends or relatives? More than three times a week 10/19/2023 How often do you attend [facility] or mormon services? Never 10/19/2023 Do you belong to any clubs o r organizations such as rastafari groups, unions, fraternal or athletic groups, or [...] Total Score - Questions 1-9 0 09/15 [facility] - [...] Sign Reading Time Taken Comments Blood Pressure 134/68 01/27/2025 2:04 PM CDT Pulse 92 01/27/2025 2:04 PM CDT Temperature 36.1 C (97 F) 01/27/2025 2:04 PM CDT Respiratory Rate 12 01/27/2025 2:04 PM CDT Oxygen Saturation 98% 01/27/2025 2:04 PM CDT Inhaled Oxygen Concentration - - Weight 60.1 kg (132 lb 9.6 oz) 01/27/2025 2:04 P M CDT Height 167.6 cm (5' 6) 01/27/2025 2:04 PM CDT Body Mass Index 21.4 01/27/2025 2:04 PM CDT Plan of Treatment Upcoming Encounters Date Type Department Care Team (Late st Contact Info) Description 05/29/2025 3:20 PM CDT Office Visit [facility] - Primary Care - [place] [address] [place] [address] John Giang MD [address] [place] [address] Health Maintenance Due Date Last Done Comments DEXA Bone Density 1940 Hepatitis C Virus (HCV) Screening 1940 Medicare Initial AWV [id number] 08/14/2022 Pneumococcal Immunization (5 0+ years) Discontinued 03/24/2014 [...] Immunization Discontinued Zoster Immunization Discontinued Insurance [place] [address] MEDICARE C [employer] Care Teams Typesetter Apprentice Relationship Specialty Start Date End Date John Giang MD PCP - General Internal Medicine 09/26/19
--- OUTSIDE RECORDS SUMMARY | 2025-05-25 14:21 | XMS_ITS | Encounter Summary ---
Author Organization [facility] Address [address] [place] [address] Phone Care Team Providers Care Integrated Circuit Ic Layout Designer Name Role Phone John Giang MD Primary Care Provider Reason for Visit * Reason Comments Medication Refill Encounter Details Date Type Department Care Team (Late st Contact Info) Description 06/24/2020 [facility]ill [facility] - [place] [address] [place] [address] John Giang MD [address] [place] [address] Medication Refill Social History Tobacco [...] 9:28 AM CST Please review and sign. TIONAL REHABILITATION TEACHER documented in this encounter Plan of Treatment Upcoming Encounters Date Type Department Care Team (Late st Contact Info) Description 05/29/2025 3:20 PM CDT [facility] Visit [facility] - [facility] - [place] [address] [place] [address] John Giang MD [address] [place] [address] documented as of this encounter Visit Diagnoses Not on filedocumented in this encounter Additional Health Concerns Infection Onset Date Last Indicated Resolved Time COVID - 19 2022 05/06/2022 05/16/2022 12:1 6 AM CDT Assessment Noted Time PHQ-9 Depression Total Score: 0 06/01/20 20 2:00 PM CDT documented as of this encounter Care Teams Integrated Circuit Ic Layout Designer Relationship Specialty Start Date End Date John Giang MD PCP - General Internal Medicine 09/26/19 documented as of this encounter
--- OUTSIDE RECORDS SUMMARY | 2025-05-25 14:21 | XMS_ITS | Encounter Summary ---
Author Organization [facility] Address [address] [place] [address] Phone Care Team Providers Care Nail Galvanizer Name Role Phone John Giang MD Primary Care Provider +1- [phone] Reason for Visit * Reason Comments Medication Refill Encounter Details Date Type Department Care Team (Late st Contact Info) Description 01/09/2024 Refill [facility] - [place] [address] [place] [address] John Giang MD [address] [place] [address] Medication Refill Social History Tobacco Use Types Packs/Day Years Used Date Smoking Tobacco: Never Passive Smoke Exposure: Never Smokeless Tobacco: Never Alcohol Use Standard Drinks/Week Comments Never 0 (1 standard drink = 0.6 oz pur e alcohol) [facility] Utilities Answer Date Recorded In the past 12 months has [employer], gas, oil, or water [employer] threatened to shut off services in your [...] often do you attend chur ch or rastafarian services? Never 10/19/2023 Do you belong to [...] Total Score - Questions 1-9 0 02/2024 [facility] - Occupational Stress Questionnaire Answer Date [...] 10/19/23 Office Visit John Giang MD [facility] [place] 07/20/23 Office Visit John Giang MD [facility] [place] 06/30/23 Office Visit Terri Melvin PAC [facility] [place] 04/13/23 Office Visit John Giang MD [facility] [place] Showing recent visits within past 365 days and meeting all other requirements Future Appointments Date Type Provider Dept 01/30/24 Appointment John Giang MD [facility] [place] Showing future appointments within next 90 days and meeting all other requirements documented in this encounter Plan of Treatment Upcoming Encounters Date Type Department Care Team (Late st Contact Info) Description 05/29/2025 3:20 PM CDT Office Visit [facility] - Primary Care - [place] [address] [place] [address] John Giang MD [address] [place] [address] documented as of this encounter Visit Diagnoses Diagnosis Chronic pain of both shoulders Pain in joint, shoulder region documented in this encounter Additional Health Concerns Assessment Noted Time PHQ-9 Depression Total Score: 0 10/19/19 24 2:03 PM LAUNDRY CLERK documented as of this encounter Care Teams Nail Galvanizer Relationship Specialty Start Date End Date John Giang MD PCP - General Internal Medicine 09/26/19 documented as of this encounter
--- OUTSIDE RECORDS SUMMARY | 2025-05-25 14:21 | XMS_ITS | Encounter Summary ---
Author Organization [facility] Address [address] [place] [address] Phone Care Team Providers Care Hotel Valet Attendant Name Role Phone John Giang MD Primary Care Provider +1- [phone] Reason for Visit * Reason Comments Medication Refill Encounter Details Date Type Department Care Team ([facility] Contact Info) Description 10/04/2023 Refill [facility] - [place] [address] [place] [address] John Giang MD [address] [place] [address] Medication Refill Social History Tobacco Use [...] Description 05/29/2025 3:20 PM CDT Office Visit [facility] - Primary Care - [place] [address] [place] [address] John Giang MD [address] [place] [address] documented as of this encounter Visit Diagnoses Diagnosis Chronic pain of both shoulders Pain in joint, shoulder region documented in this encounter Additional Health Concerns Assessment Noted Time PHQ-9 Depression Total Score: 0 08/24/19 21 1:00 PM SWEET DOUGH MIXER documented as of this encounter Care Teams Hotel Valet Attendant Relationship Specialty Start Date End Date John Giang MD PCP - General Internal Medicine 09/26/19 documented as of this encounter
--- OUTSIDE RECORDS SUMMARY | 2025-05-25 14:21 | XMS_ITS | Encounter Summary ---
Author Organization [facility] Address [address] [place] [address] Phone Care Team Providers Care Track Machine Operator Repairer Name Role Phone John Giang MD Primary Care Provider +1- [phone] Reason for Visit * Reason Comments Medication Refill Encounter Details Date Type Department Care Team (Late Contact Info) Description 12/08/2020 Refill [facility] - Internal Medicine - [place] [address] [place] [phone] John Giang MD [address] [place] [address] Medication Refill Social History Tobacco [...] [facility] - Primary Care - [place] [address] [place] [address] John Giang MD [address] [place] [address] documented as of this encounter Visit Diagnoses Not on filedocumented in this encounter Additional Health Concerns Infection Onset Date Last Indicated Resolved Time COVID - 19 2022 05/06/2022 05/16/2022 12:1 6 AM CDT Assessment Noted Time PHQ-9 Depression Total Score: 0 08/24/19 21 1:00 PM DECORATION CHECKER documented as of this encounter Care Teams Track Machine Operator Repairer Relationship Specialty Start Date End Date John Giang MD PCP - General Internal Medicine 09/26/19 documented as of this encounter
--- OUTSIDE RECORDS SUMMARY | 2025-05-25 14:21 | XMS_ITS | Encounter Summary ---
Author Organization [facility] Address [address] [place] [address] Phone Care Team Providers Care Globe Cleaner Name Role Phone John Giang MD Primary Care Provider [phone]- [phone] Reason for Visit * Reason Comments Medication Refill Encounter Details Date Type Department Care Team (Late Contact Info) Description 10/28/2020 Refill [facility] - [place] [address] [place] [address] John Giang MD [address] [place] [address] Medication Refill Social History Tobacco [...] Description 05/29/2025 3:20 PM CDT Office Visit [facility] - Primary Care - [place] [address] [place] [address] John Giang MD [address] [place] [address] documented as of this encounter Visit Diagnoses Not on filedocumented in this encounter Additional Health Concerns Infection Onset Date Last Indicated Resolved Time COVID - 19 2022 05/06/2022 05/16/2022 12:1 6 AM CDT Assessment Noted Time PHQ-9 Depression Total Score: 0 08/24/19 21 1:00 PM MANAGER MANAGEMENT documented as of this encounter Care Teams Globe Cleaner Relationship Specialty Start Date End Date John Giang MD PCP - General Internal Medicine 09/26/19 documented as of this encounter
--- OUTSIDE RECORDS SUMMARY | 2025-05-25 14:21 | XMS_ITS | Encounter Summary ---
Author Organization [facility] Address [address] [place] [address] Phone Care Team Providers Care Jumpbasting Lining Baster Name Role Phone John Giang MD Primary Care Provider [phone]- [phone] Reason for Visit * Reason Comments Medication Refill Encounter Details Date Type Department Care Team (Late st Contact Info) Description 11/20/2023 Refill [facility] - [place] [address] [place] [address] John Giang MD [address] [place] [address] Medication Refill Social History Tobacco Use Types Packs/Day Years Used Date Smoking Tobacco: Never Passive Smoke Exposure: Never Smokeless Tobacco: Never Alcohol Use Standard Drinks/Week Comments Never 0 (1 standard drink = 0.6 oz pur e alcohol) [facility] Utilities Answer Date Recorded In the past 12 months has [employer], gas, oil, or water [employer] threatened to shut off services in your [...] often do you attend chur ch or latter day services? Never 10/19/2023 Do you belong to any clubs o r organizations such as jainism groups, unions, fraternal or athletic groups, or [...] 0 02/2024 [facility] - Occupational Stress Questionnaire Answer Date [...] 10/19/23 Office Visit John Giang MD [facility] [place] 07/20/23 Office Visit John Giang MD [facility] [place] 06/30/23 Office Visit Terri Melvin PAC [facility] [place] 04/13/23 Office Visit John Giang MD [facility] [place] 12/22/22 Office Visit John Giang MD [facility] [place] 11/21/22 [facility] [place] Showing recent visits within past 365 days and meeting all other requirements Future Appointments Date Type Provider Dept 01/30/24 Appointment [facility] [place] Showing future appointments within next 90 days and meeting all other requirements documented in this encounter Plan of Treatment Upcoming Encounters Date Type Department Care Team (Late st Contact Info) Description 05/29/2025 3:20 PM CDT Office Visit [facility] - Primary Care - [place] [address] [place] [address] John Giang MD [address] [place] [address] documented as of this encounter Visit Diagnoses Diagnosis Chronic pain of both shoulders Pain in joint, shoulder region documented in this encounter Additional Health Concerns Assessment Noted Time PHQ-9 Depression Total Score: 0 10/19/19 24 2:03 PM SURGERY CONSULTANT documented as of this encounter Care Teams Jumpbasting Lining Baster Relationship Specialty Start Date End Date John Giang MD PCP - General Internal Medicine 09/26/19 documented as of this encounter
--- OUTSIDE RECORDS SUMMARY | 2025-05-25 14:21 | XMS_ITS | Encounter Summary ---
Author Organization [facility] Address [address] [place] [address] Phone Care Team Providers Care Office Automation Technician Name Role Phone John Giang MD Primary Care Provider [phone]- [phone] Reason for Visit * Reason Comments Medication Refill Encounter Details Date Type Department Care Team (Late st Contact Info) Description 08/25/2020 Refill [facility] - [place] [address] [place] [address] [place] [phone] John Giang MD [address] [place] [address] Medication Refill Social History Tobacco [...] COVID-19? No / Unsure 08/24/2020 1:26 PM IMAGE ASSEMBLER documented as of this encounter Miscellaneous Notes * Telephone Encounter - Ileana Tapia RN - 08/25/2020 8:31 AM CST Please review and sign. E ASSEMBLER documented in this encounter Plan of Treatment Upcoming Encounters Date Type Department Care Team (Late st Contact Info) Description 05/29/2025 3:20 PM CDT Office Visit [facility] - Primary Care - [place] [address] [place] [address] John Giang MD [address] [place] [address] documented as of this encounter Visit Diagnoses Not on filedocumented in this encounter Additional Health Concerns Infection Onset Date Last Indicated Resolved Time COVID - 19 2022 05/06/2022 05/16/2022 12:1 6 AM CDT Assessment Noted Time PHQ-9 Depression Total Score: 0 08/24/19 21 1:00 PM IMAGE ASSEMBLER documented as of this encounter Care Teams Office Automation Technician Relationship Specialty Start Date End Date John Giang MD PCP - General Internal Medicine 09/26/19 documented as of this encounter
--- OUTSIDE RECORDS SUMMARY | 2025-05-25 14:21 | XMS_ITS | Encounter Summary ---
Author Organization [facility] Address [address] [place] [address] Phone Care Team Providers Care Horticultural Farm Manager Name Role Phone John Giang MD Primary Care Provider [phone]- [phone] Reason for Visit * Reason Comments Medication Refill Encounter Details Date Type Department Care Team (Late st Contact Info) Description 12/08/2023 Refill [facility] - [place] [address] [place] [address] John Giang MD [address] [place] [address] Medication Refill Social History Tobacco Use Types Packs/Day Years Used Date Smoking Tobacco: Never Passive Smoke Exposure: Never Smokeless Tobacco: Never Alcohol Use Standard Drinks/Week Comments Never 0 (1 standard drink = 0.6 oz pur e alcohol) [facility] Utilities Answer Date Recorded In the past 12 months has [employer], gas, oil, or water [employer] threatened to shut off services in your [...] often do you attend chur ch or methodist services? Never 10/19/2023 Do you belong to any clubs o r organizations such as baptism groups, unions, fraternal or athletic groups, or [...] Total Score - Questions 1-9 0 02/2024 [facility] - Occupational Stress Questionnaire Answer Date [...] Dept 10/19/23 Office Visit John Giang MD [facility] [place] 07/20/23 Office Visit John Giang MD [facility] [place] 06/30/23 Office Visit Terri Melvin [facility] [place] 04/13/23 Office Visit John Giang MD [facility] [place] 12/22/22 Office Visit John Giang MD [facility] [place] Showing recent visits within past 365 days and meeting all other requirements Future Appointments Date Type Provider Dept 01/30/24 Appointment John Giang MD [facility] [place] Showing future appointments within next 90 days and meeting all other requirements documented in this encounter Plan of Treatment Upcoming Encounters Date Type Department Care Team (Late st Contact Info) Description 05/29/2025 3:20 PM CDT Office Visit [facility] - Primary Care - [place] [address] [place] [address] John Giang MD [address] [place] [address] documented as of this encounter Visit Diagnoses Diagnosis Primary insomnia Persistent disorder of initiating or maintaining sleep documented in this encounter Additional Health Concerns Assessment Noted Time PHQ-9 Depression Total Score: 0 10/19/19 24 2:03 PM METHOD CONSULTANT documented as of this encounter Care Teams Horticultural Farm Manager Relationship Specialty Start Date End Date John Giang MD PCP - General Internal Medicine 09/26/19 documented as of this encounter
--- OUTSIDE RECORDS SUMMARY | 2025-05-25 14:21 | XMS_ITS | Encounter Summary ---
Author Organization [facility] Address [address] [place] [address] Phone Care Team Providers Care Powertrain Control Systems Engineer Name Role Phone John Giang MD Primary Care Provider +1- [phone] Reason for Visit * Reason Comments Medication Refill Encounter Details Date Type Department Care Team ([facility] Contact Info) Description 04/20/2021 [facility]ill [facility] - [place] [address] [place] [address] John Giang MD [address] [place] [address] Medication Refill Social History Tobacco [...] Description 05/29/2025 3:20 PM CDT Office Visit [facility] Primary Care - [place] [address] [place] [address] John Giang MD [address] [place] [address] documented as of this encounter Visit Diagnoses Diagnosis Primary insomnia Persistent disorder of initiating or maintaining sleep documented in this encounter Additional Health Concerns Infection Onset Date Last Indicated Resolved Time COVID - 19 2022 05/06/2022 05/16/2022 12:1 6 AM CDT Assessment Noted Time PHQ-9 Depression Total Score: 0 08/24/19 21 1:00 PM COPPER ROLLER HANDLER PRINTING documented as of this encounter Care Teams Powertrain Control Systems Engineer Relationship Specialty Start Date End Date John Giang MD PCP - General Internal Medicine 09/26/19 documented as of this encounter
--- OUTSIDE RECORDS SUMMARY | 2025-05-25 14:21 | XMS_ITS | Encounter Summary ---
Author Organization [facility] Address [address] [place] [address] Phone Care Team Providers Care Superintendent Board Mill Name Role Phone John Giang MD Primary Care Provider [phone]- [phone] Reason for Visit * Reason Comments Medication Refill Encounter Details Date Type Department Care Team ([facility] Contact Info) Description 06/13/2023 Refill [facility] - Internal Medicine - [place] [address] [place] [address] John Giang MD [address] [place] [address] Medication Refill Social History Tobacco Use [...] 05/29/2025 3:20 PM CDT Office Visit [facility] - Primary Care - [place] [address] [place] [address] John Giang MD [address] [place] [address] documented as of this encounter Visit Diagnoses Diagnosis Chronic pain of both shoulders Pain in joint, shoulder region documented in this encounter Additional Health Concerns Assessment Noted Time PHQ-9 Depression Total Score: 0 08/24/19 21 1:00 PM DOCK OPERATIONS SUPERVISOR documented as of this encounter Care Teams Superintendent Board Mill Relationship Specialty Start Date End Date John Giang MD PCP - General Internal Medicine 09/26/19 documented as of this encounter
--- OUTSIDE RECORDS SUMMARY | 2025-05-25 14:21 | XMS_ITS | Encounter Summary ---
Author Organization [facility] Address [address] [place] [address] Phone Care Team Providers Care Director Vaccine Name Role Phone John Giang MD Primary Care Provider +1- [phone] Reason for Visit * Reason Comments Medication Refill Encounter Details Date Type Department Care Team (Late st Contact Info) Description 12/13/2023 Refill [facility] - [place] [address] [place] [address] John Giang MD [address] [place] [address] Medication Refill Social History Tobacco Use Types Packs/Day Years Used Date Smoking Tobacco: Never Passive Smoke Exposure: Never Smokeless Tobacco: Never Alcohol Use Standard Drinks/Week Comments Never 0 (1 standard drink = 0.6 oz pur e alcohol) [facility] Utilities Answer Date Recorded In the past 12 months has [employer], gas, oil, or water [employer] threatened to shut off services in your [...] often do you attend chur ch or amish services? Never 10/19/2023 Do you belong to any clubs o r organizations such as sikh groups, unions, fraternal or athletic groups, or [...] Score - Questions 1-9 0 02/2024 [facility] - Occupational Stress Questionnaire Answer Date [...] place to sleep or slept in a intermediate (including now)? No 10/19/2023 Education Answer Date [...] 10/19/23 Office Visit John Giang MD [facility] [place] 07/20/23 Office Visit John Giang MD [facility] [place] 06/30/23 Office Visit Terri Melvin PAC [facility] [place] 04/13/23 Office Visit John Giang MD [facility] [place] 12/22/22 Office Visit John Giang MD [facility] [place] Showing recent visits within past 365 days and meeting all other requirements Future Appointments Date Type Provider Dept 01/30/24 Appointment John Giang MD [facility] [place] Showing future appointments within next 90 days and meeting all other requirements documented in this encounter Plan of Treatment Upcoming Encounters Date Type Department Care Team (Late st Contact Info) Description 05/29/2025 3:20 PM CDT Office Visit [facility] - Primary Care - [place] [address] [place] [address] John Giang MD [address] [place] [address] documented as of this encounter Visit Diagnoses Diagnosis Chronic pain of both shoulders Pain in joint, shoulder region documented in this encounter Additional Health Concerns Assessment Noted Time PHQ-9 Depression Total Score: 0 10/19/19 24 2:03 PM TABLE ASSEMBLER METAL documented as of this encounter Care Teams Director Vaccine Relationship Specialty Start Date End Date John Giang MD PCP - General Internal Medicine 09/26/19 documented as of this encounter
--- OUTSIDE RECORDS SUMMARY | 2025-05-25 14:21 | XMS_ITS | Encounter Summary ---
Author Organization [facility] Address [address] [place] [address] Phone Care Team Providers Care Hr Analyst Name Role Phone John Giang MD Primary Care Provider [phone]- [phone] Reason for Visit * Reason Comments Medication Refill Encounter Details Date Type Department Care Team (Late st Contact Info) Description 10/26/2020 Refill [facility] - [place] [address] [place] [address] John Giang MD [address] [place] [address] Medication Refill Social History Tobacco [...] CDT Office Visit [facility] - Primary Care - [place] [address] [place] [address] John Giang MD [address] [place] [address] documented as of this encounter Visit Diagnoses Not on filedocumented in this encounter Additional Health Concerns Infection Onset Date Last Indicated Resolved Time COVID - 19 2022 05/06/2022 05/16/2022 12:1 6 AM CDT Assessment Noted Time PHQ-9 Depression Total Score: 0 08/24/19 21 1:00 PM RN [id number] documented as of this encounter Care Teams Hr Analyst Relationship Specialty Start Date End Date John Giang MD PCP - General Internal Medicine 09/26/19 documented as of this encounter
--- OUTSIDE RECORDS SUMMARY | 2025-05-25 14:21 | XMS_ITS | Encounter Summary ---
Author Organization [facility] Address [address] [place] [address] Phone Care Team Providers Care Welding Machine Operator Gas Metal Arc Name Role Phone John Giang MD Primary Care Provider +1 [phone] Reason for Visit * Reason Comments Medication Refill Encounter Details Date Type Department Care Team (Late st Contact Info) Description 09/16/2024 [facility]ill [facility] - [facility] Medicine - [place] [address] [phone] Terri Melvin, [facility] [address] [place] [address] Medication Refill Social History Tobacco Use Types Packs/Day Years Used Date Smoking Tobacco: Never Passive Smoke Exposure: Never Smokeless Tobacco: Never Alcohol Use Standard Drinks/Week Comments Never 0 (1 standard drink = 0.6 oz pur e alcohol) [facility] Utilities Answer Date Recorded In the past 12 months has [employer], gas, oil, or water [employer] threatened to shut off services in your [...] How often do you attend chur or holiness services? Never 10/19/2023 Do you belong to any clubs o r organizations such as buddhism groups, unions, fraternal or athletic groups, or [...] Total Score - Questions 1-9 0 02/2024 [facility] of Occupat ional Health - Occupational [...] place to sleep or slept in a snf (including now)? No 10/19/2023 Education Answer Date [...] [facility] - Primary Care - [place] [address] [place] [address] Jhon Giang MD [address] [place] [address] documented as of this encounter Visit Diagnoses Diagnosis Chronic pain of both shoulders Pain in joint, shoulder region documented in this encounter Additional Health Concerns Assessment Noted Time PHQ-9 Depression Total Score: 0 10/19/19 24 2:03 PM DETENTION WORKER documented as of this encounter Care Teams Welding Machine Operator Gas Metal Arc Relationship Specialty Start Date End Date John Giang MD PCP - General Internal Medicine 09/26/19 documented as of this encounter
--- OUTSIDE RECORDS SUMMARY | 2025-05-25 14:21 | XMS_ITS | Encounter Summary ---
Author Organization [facility] Address [address] [place] [address] Phone Care Team Providers Care Photonics Engineer Name Role Phone John Giang MD Primary Care Provider +1- [phone] Reason for Visit * Reason Comments Medication Refill Encounter Details Date Type Department Care Team (Late st Contact Info) Description 10/30/2023 [facility]ill [facility] - Internal Medicine - [place] [address] [place] [phone] John Giang MD [address] [place] [address] Medication Refill Social History Tobacco Use Types Packs/Day Years Used Date Smoking Tobacco: Never Passive Smoke Exposure: Never Smokeless Tobacco: Never Alcohol Use Standard Drinks/Week Comments Never 0 (1 standard drink = 0.6 oz pur e alcohol) [facility] Utilities Answer Date Recorded In the past 12 months has [employer], gas, oil, or water [employer] threatened to shut off services in your [...] often do you attend chur ch or adventism services? Never 10/19/2023 Do you belong to [...] Total Score - Questions 1-9 0 02/2024 [facility] - Occupational Stress Questionnaire Answer Date [...] place to sleep or slept in a prison (including now)? No 10/19/2023 Education Answer Date [...] Office Visit John Giang MD [facility] [place] 07/20/23 Office Visit John Giang MD [facility] [place] 06/30/23 Office Visit Terri Melvin PAC [facility] [place] 04/13/23 Office Visit John Giang MD [facility] [place] 12/22/22 Office Visit John Giang MD [facility] [place] 11/21/22 Office Visit John Giang MD [facility] [place] 11/07/22 Office Visit John Giang MD [facility] [place] 10/31/22 Office Visit Terri Mevlin, PAC [facility] [place] Showing recent visits within past 365 days and meeting all other requirements Future Appointments No visits were found meeting these conditions. Showing future appointments within next 90 days and meeting all other requirements documented in this encounter Plan of Treatment Upcoming Encounters Date Type Department Care Team (Late st Contact Info) Description 05/29/2025 3:20 PM CDT Office Visit [facility] - Primary Care - [place] [address] [place] [address] John Giang MD [address] [place] [address] documented as of this encounter Visit Diagnoses Diagnosis Chronic pain of both shoulders Pain in joint, shoulder region documented in this encounter Additional Health Concerns Assessment Noted Time PHQ-9 Depression Total Score: 0 10/19/19 24 2:03 PM STUDENT SERVICES VICE PRESIDENT documented as of this encounter Care Teams Photonics Engineer Relationship Specialty Start Date End Date John Giang MD PCP - General Internal Medicine 09/26/19 documented as of this encounter
--- OUTSIDE RECORDS SUMMARY | 2025-05-25 14:21 | XMS_ITS | Encounter Summary ---
Author Organization [facility] Address [address] [place] [address] Phone Care Team Providers Care Television Analyzer Name Role Phone John Giang MD Primary Care Provider +1 [phone] Reason for Visit * Reason Comments Medication Refill Encounter Details Date Type Department Care Team (Late st Contact Info) Description 02/29/2024 [facility]ill [facility] Medicine - [place] [address] [place] [phone] Terri Melvin, [facility] [address] [place] [address] Medication Refill Social History Tobacco Use Types Packs/Day Years Used Date Smoking Tobacco: Never Passive Smoke Exposure: Never Smokeless Tobacco: Never Alcohol Use Standard Drinks/Week Comments Never 0 (1 standard drink = 0.6 oz pur e alcohol) [facility] Utilities Answer Date Recorded In the past 12 months has [employer], gas, oil, or water [employer] threatened to shut off services in your [...] How often do you attend chur or evangelical services? Never 10/19/2023 Do you belong to any clubs o r organizations such as uatsdin groups, unions, fraternal or athletic groups, or [...] Total Score - Questions 1-9 0 02/2024 [facility] of Occupat ional Health - [...] place to sleep or slept in a half-way (including now)? No 10/19/2023 Education Answer Date [...] [facility] - Primary Care - [place] [address] [place] [address] John Giang MD [address] [place] [address] documented as of this encounter Visit Diagnoses Diagnosis Primary insomnia Persistent disorder of initiating or maintaining sleep documented in this encounter Additional Health Concerns Assessment Noted Time PHQ-9 Depression Total Score: 0 10/19/19 24 2:03 PM CHIEF AIRLINE RADIO OPERATOR documented as of this encounter Care Teams Television Analyzer Relationship Specialty Start Date End Date John Giang MD PCP - General Internal Medicine 09/26/19 documented as of this encounter
--- OUTSIDE RECORDS SUMMARY | 2025-05-25 14:21 | XMS_ITS | Encounter Summary ---
Author Organization [facility] Address [address] [place] [address] Phone Care Team Providers Care Quality Control Scientist Name Role Phone John Giang MD Primary Care Provider [phone]- [phone] Reason for Visit * Reason Comments Medication Refill Encounter Details Date Type Department Care Team (Late Contact Info) Description 08/25/2022 Refill [facility] - Internal Medicine - [place] [address] [place] [address] John Giang MD [address] [place] [address] Medication Refill Social History Tobacco [...] Medicine shoppe out of medication, Send to [facility] Y PLAN SALES UNIT SALES LEADER documented in this encounter Plan of Treatment Upcoming Encounters Date Type Department Care Team (Late Contact Info) Description 05/29/2025 3:20 PM CDT Office Visit [facility] - Primary Care - [place] [address] [place] [address] John Giang MD [address] [place] [address] documented as of this encounter Visit Diagnoses Diagnosis Primary insomnia Persistent disorder of initiating or maintaining sleep documented in this encounter Additional Health Concerns Assessment Noted Time PHQ-9 Depression Total Score: 0 08/24/19 21 1:00 PM PARTY PLAN SALES UNIT SALES LEADER documented as of this encounter Care Teams Quality Control Scientist Relationship Specialty Start Date End Date John Giang MD PCP - General Internal Medicine 09/26/19 documented as of this encounter
--- OUTSIDE RECORDS SUMMARY | 2025-05-25 14:21 | XMS_ITS | Encounter Summary ---
Author Organization [facility] Address [address] [place] [address] Phone Care Team Providers Care Manufacturer Name Role Phone John Giang MD Primary Care Provider [phone]- [phone] Reason for Visit * Reason Comments Medication Refill Encounter Details Date Type Department Care Team (Late st Contact Info) Description 08/04/2023 [facility]ill [facility] Internal Medicine - [place] [address] [place] [address] John Giang MD [address] [place] [address] Medication Refill Social History Tobacco [...] Dept 07/20/23 Office Visit John Giang MD [facility] [place] 06/30/23 Office Visit Terri Melvin, PAC [facility] [place] 04/13/23 Office Visit John Giang MD [facility] [place] 12/22/22 Office Visit John Giang MD [facility] [place] 11/21/22 Office Visit John Giang MD [facility] [place] 11/07/22 Office Visit John Giang MD [facility] [place] 10/31/22 Office Visit Terri Melvin, PAC [facility] [place] Showing recent visits within past 365 days and meeting all other requirements Future Appointments Date Type Provider Dept 10/19/23 Appointment John Giang MD [facility] [place] Showing future appointments within next 90 days and meeting all other requirements RPRISE APPLICATION ADMINISTRATOR documented in this encounter Plan of Treatment Upcoming Encounters Date Type Department Care Team (Late st Contact Info) Description 05/29/2025 3:20 PM CDT Office Visit [facility] - Primary Care - [place] [address] [place] [address] John Giang MD [address] [place] [address] documented as of this encounter Visit Diagnoses Diagnosis Chronic pain of both shoulders Pain in joint, shoulder region documented in this encounter Additional Health Concerns Assessment Noted Time PHQ-9 Depression Total Score: 0 08/24/19 21 1:00 PM ENTERPRISE APPLICATION ADMINISTRATOR documented as of this encounter Care Teams Manufacturer Relationship Specialty Start Date End Date John Giang MD PCP - General Internal Medicine 09/26/19 documented as of this encounter
--- OUTSIDE RECORDS SUMMARY | 2025-05-25 14:21 | XMS_ITS | Encounter Summary ---
Author Organization [facility] Address [address] [place] [address] Phone Care Team Providers Care Marine Steam Fitter Helper Name Role Phone John Giang MD Primary Care Provider [phone]- [phone] Reason for Visit * Reason Comments Medication Refill Encounter Details Date Type Department Care Team (Late st Contact Info) Description 08/23/2024 [facility]ill [facility] - Internal Medicine - [place] [address] [place] [address] John Giang MD [address] [place] [address] Medication Refill Social History Tobacco Use Types Packs/Day Years Used Date Smoking Tobacco: Never Passive Smoke Exposure: Never Smokeless Tobacco: Never Alcohol Use Standard Drinks/Week Comments Never 0 (1 standard drink = 0.6 oz pur e alcohol) [facility] Utilities Answer Date Recorded In the past 12 months has [employer], gas, oil, or water [employer] threatened to shut off services in your [...] often do you attend chur ch or jehovah's witness services? Never 10/19/2023 Do you belong to [...] Total Score - Questions 1-9 0 02/2024 [facility] - Occupational Stress Questionnaire Answer Date Recorded [...] [facility] - Primary Care - [place] [address] [place] [address] John Giang MD [address] [place] [address] documented as of this encounter Visit Diagnoses Diagnosis Primary insomnia Persistent disorder of initiating or maintaining sleep documented in this encounter Additional Health Concerns Assessment Noted Time PHQ-9 Depression Total Score: 0 10/19/19 24 2:03 PM BENDING PRESS OPERATOR documented as of this encounter Care Teams Marine Steam Fitter Helper Relationship Specialty Start Date End Date John Giang MD PCP - General Internal Medicine 09/26/19 documented as of this encounter
--- OUTSIDE RECORDS SUMMARY | 2025-05-25 14:21 | XMS_ITS | Encounter Summary ---
Author Organization [facility] Address [address] [place] [address] Phone Care Team Providers Care Clerical Warehouse Worker Name Role Phone John Giang MD Primary Care Provider +1- [phone] Reason for Visit * Reason Comments Medication Refill Encounter Details Date Type Department Care Team (Late st Contact Info) Description 01/02/2023 [facility]ill [facility] - Internal Medicine - [place] [address] [place] [phone] John Giang MD [address] [place] [address] Medication Refill Social History Tobacco [...] Dept 12/22/22 Office Visit John Giang MD [facility] [place] 11/21/22 Office Visit John Giang MD [facility] [place] 11/07/22 Office Visit John Giang MD [facility] [place] 10/31/22 Office Visit Terri Melvin, PAC [facility] [place] 06/30/22 Office Visit John Giang MD [facility] [place] 05/12/22 Office Visit Terri Melvin, PAC [facility] [place] 05/06/22 Office Visit Terri Melvin, PAC [facility] [place] 05/06/22 Appointment [place], [place] [facility] [place] 01/18/22 Office Visit John Giang MD [facility] [place] Showing recent visits within past 365 days and meeting all other requirements Future Appointments Date Type Provider Dept 03/27/23 Appointment John Giang MD [facility] [place] Showing future appointments within next 90 days and meeting all other requirements documented in this encounter Plan of Treatment Upcoming Encounters Date Type Department Care Team (Late st Contact Info) Description 05/29/2025 3:20 PM CDT Office Visit [facility] - Primary Care - [place] [address] [place] [address] John Giang MD [address] [place] [address] documented as of this encounter Visit Diagnoses Diagnosis Primary insomnia Persistent disorder of initiating or maintaining sleep documented in this encounter Additional Health Concerns Assessment Noted Time PHQ-9 Depression Total Score: 0 08/24/19 21 1:00 PM FUSING FURNACE LOADER documented as of this encounter Care Teams Clerical Warehouse Worker Relationship Specialty Start Date End Date John Giang MD PCP - General Internal Medicine 09/26/19 documented as of this encounter
--- OUTSIDE RECORDS SUMMARY | 2025-05-25 14:21 | XMS_ITS | Encounter Summary ---
Author Organization [facility] Address [address] [place] [address] Phone Care Team Providers Care Recycling Crew Supervisor Name Role Phone John Giang MD Primary Care Provider +1- [phone] Reason for Visit * Reason Comments Medication Refill Encounter Details Date Type Department Care Team ([facility] Contact Info) Description 06/20/2023 Refill [facility] - Internal Medicine - [place] [address] [place] [address] John Giang MD [address] [place] [address] Medication Refill Social History Tobacco Use [...] Description 05/29/2025 3:20 PM CDT Office Visit [facility] - Primary Care - [place] [address] [place] [address] John Giang MD [address] [place] [address] documented as of this encounter Visit Diagnoses Diagnosis Generalized anxiety disorder documented in this encounter Additional Health Concerns Assessment Noted Time PHQ-9 Depression Total Score: 0 08/24/19 21 1:00 PM WASH BOX OPERATOR documented as of this encounter Care Teams Recycling Crew Supervisor Relationship Specialty Start Date End Date John Giang MD PCP - General Internal Medicine 09/26/19 documented as of this encounter
--- OUTSIDE RECORDS SUMMARY | 2025-05-25 14:21 | XMS_ITS | Encounter Summary ---
Author Organization [facility] Address [address] [place] [address] Phone Care Team Providers Care Regional Vice President Surgical Sales Name Role Phone John Giang MD Primary Care Provider +1- [phone] Reason for Visit * Reason Comments Medication Refill Encounter Details Date Type Department Care Team (Late Contact Info) Description 11/24/2020 Refill [facility] - Internal Medicine - [place] [address] [place] [phone] John Giang MD [address] [place] [address] Medication Refill Social History Tobacco [...] Description 05/29/2025 3:20 PM CDT Office Visit [facility] - Primary Care - [place] [address] [place] [address] John Giang MD [address] [place] [address] documented as of this encounter Visit Diagnoses Not on filedocumented in this encounter Additional Health Concerns Infection Onset Date Last Indicated Resolved Time COVID - 19 2022 05/06/2022 05/16/2022 12:1 6 AM CDT Assessment Noted Time PHQ-9 Depression Total Score: 0 08/24/19 21 1:00 PM JAVA MANAGER documented as of this encounter Care Teams Regional Vice President Surgical Sales Relationship Specialty Start Date End Date John Giang MD PCP - General Internal Medicine 09/26/19 documented as of this encounter
--- OUTSIDE RECORDS SUMMARY | 2025-05-25 14:21 | XMS_ITS | Encounter Summary ---
Author Organization [facility] Address [address] [place] [address] Phone Care Team Providers Care Radiology Manager Name Role Phone John Giang MD Primary Care Provider +1 [phone] Reason for Visit * Reason Comments Medication Refill Encounter Details Date Type Department Care Team (Late st Contact Info) Description 06/23/2023 Refill [facility] - Internal Medicine - [place] [address] [place] [phone] John Giang MD [address] [place] [address] Medication Refill Social History Tobacco [...] Type Provider Dept 04/13/23 Office Visit John Giagn MD [facility] [place] 12/22/22 Office Visit John Giang MD [facility] [place] 11/21/22 Office Visit John Giang MD [facility] [place] 11/07/22 Office Visit John Giang MD [facility] [place] 10/31/22 Office Visit Terri Melvin, [facility] [place] 06/30/22 Office Visit John Giang MD [facility] [place] Showing recent visits within past 365 days and meeting all other requirements Future Appointments Date Type Provider Dept 07/20/23 Appointment John Giang MD [facility] [place] Showing future appointments within next 90 days and meeting all other requirements ANALYST documented in this encounter Plan of Treatment Upcoming Encounters Date Type Department Care Team (Late st Contact Info) Description 05/29/2025 3:20 PM CDT Office Visit [facility] - Primary Care - [place] [address] [place] [address] John Giang MD [address] [place] [address] documented as of this encounter Visit Diagnoses Diagnosis Primary insomnia Persistent disorder of initiating or maintaining sleep documented in this encounter Additional Health Concerns Assessment Noted Time PHQ-9 Depression Total Score: 0 08/24/19 21 1:00 PM MINE ANALYST documented as of this encounter Care Teams Radiology Manager Relationship Specialty Start Date End Date John Giang MD PCP - General Internal Medicine 09/26/19 documented as of this encounter
--- OUTSIDE RECORDS SUMMARY | 2025-05-25 14:21 | XMS_ITS | Encounter Summary ---
Author Organization [facility] Address [address] [place] [address] Phone Care Team Providers Care Events And Promotions Assistant Name Role Phone John Giang MD Primary Care Provider +1 [phone] Reason for Visit * Reason Comments Medication Refill Encounter Details Date Type Department Care Team (Late st Contact Info) Description 10/04/2023 Refill [facility] - [place] [address] [place] [phone] [facility] [address] [place] [address] Medication Refill Social History Tobacco [...] Office Visit John Giang MD [facility] [place] 06/30/23 Office Visit Terri Melvin, PAC [facility] [place] 04/13/23 Office Visit John Giang MD [facility] [place] 12/22/22 Office Visit John Giang MD [facility] [place] 11/21/22 Office Visit John Giang MD [facility] [place] 11/07/22 Office Visit John Giang MD [facility] [place] 10/31/22 Office Visit Terri Melvin, PAC [facility] [place] Showing recent visits within past 365 days and meeting all other requirements Future Appointments Date Type Provider Dept 10/19/23 Appointment John Giang MD [facility] [place] Showing future appointments within next 90 days and meeting all other requirements GENCY TELECOMMUNICATIONS DISPATCHER documented in this encounter Plan of Treatment Upcoming Encounters Date Type Department Care Team (Late st Contact Info) Description 05/29/2025 3:20 PM CDT Office Visit [facility] - Primary Care - [place] [address] [place] [address] John Giang MD [address] [place] [address] documented as of this encounter Visit Diagnoses Not on filedocumented in this encounter Additional Health Concerns Assessment Noted Time PHQ-9 Depression Total Score: 0 08/24/19 1:00 PM EMERGENCY TELECOMMUNICATIONS DISPATCHER documented as of this encounter Care Teams Events And Promotions Assistant Relationship Specialty Start Date End Date John Giang MD PCP - General Internal Medicine 09/26/19 documented as of this encounter
--- OUTSIDE RECORDS SUMMARY | 2025-05-25 14:21 | XMS_ITS | Encounter Summary ---
Author Organization [facility] Address [address] [place] [address] Phone Care Team Providers Care Cook Helper Preserves Name Role Phone John Giang MD Primary Care Provider [phone]- [phone] Reason for Visit * Reason Comments Medication Refill Encounter Details Date Type Department Care Team (Late st Contact Info) Description 10/24/2022 [facility]ill [facility] - [facility] - [place] [address] [place] [address] John Giang MD [address] [place] [address] Medication Refill Social History Tobacco [...] Dept 06/30/22 Office Visit John Giang MD [facility] [place] 05/12/22 Office Visit Terri Melvin, PAC [facility] [place] 05/06/22 Office Visit Terri Melvin, PAC [facility] [place] 05/06/22 Appointment Lab, [place] [facility] [place] 01/18/22 Office Visit John Giang MD [facility] [place] Showing recent visits within past 365 days [...] Office Visit John Giang MD [facility] [place] 05/12/22 Office Visit Terri Melvin, GLORIA [facility] [place] 05/06/22 Office Visit Terri Melvin, PAC [facility] [place] 05/06/22 Appointment Lab, [place] [facility] [place] 01/18/22 Office Visit John Giang MD [facility] [place] Showing recent visits within past 365 days and meeting all other requirements Future Appointments No visits were found meeting these conditions. Showing future appointments within next 90 days and meeting all other requirements * Telephone Encounter - Meseret Suggs - 10/24/2022 10:49 AM CDT Medication Refill Medication: temazepam (RESTORIL) Pharmacy: documented in this encounter Plan of Treatment Upcoming Encounters Date Type Department Care Team (Late st Contact Info) Description 05/29/2025 3:20 PM CDT [facility] - [place] [address] [place] [address] John Giang MD [address] [place] [address] documented as of this encounter Visit Diagnoses Diagnosis Primary insomnia Persistent disorder of initiating or maintaining sleep documented in this encounter Additional Health Concerns Assessment Noted Time PHQ-9 Depression Total Score: 0 08/24/19 21 1:00 PM CAGE UNLOADER documented as of this encounter Care Teams Cook Helper Preserves Relationship Specialty Start Date End Date Jhon Giang MD PCP - General Internal Medicine 09/26/19 documented as of this encounter
--- OUTSIDE RECORDS SUMMARY | 2025-05-25 14:21 | XMS_ITS | Encounter Summary ---
Author Organization [facility] Address [address] [place] [address] Phone Care Team Providers Care Outbound Call Center Representative Name Role Phone John Giang MD Primary Care Provider [phone] Reason for Visit * Reason Comments Medication Refill Encounter Details Date Type Department Care Team (Late st Contact Info) Description 01/25/2024 Refill [facility] - [facility] Medicine - [place] [address] [place] [address] John Giang MD [address] [place] [address] Medication Refill Social History Tobacco Use Types Packs/Day Years Used Date Smoking Tobacco: Never Passive Smoke Exposure: Never Smokeless Tobacco: Never Alcohol Use Standard Drinks/Week Comments Never 0 (1 standard drink = 0.6 oz pur e alcohol) [facility] Utilities Answer Date Recorded In the past 12 months has [employer], gas, oil, or water [employer] threatened to shut off services in your [...] often do you attend chur ch or mandaen services? Never 10/19/2023 Do you belong to any clubs o r organizations such as islam groups, unions, fraternal or athletic groups, or [...] 02/2024 [facility] - Occupational Stress Questionnaire Answer Date [...] 10/19/23 Office Visit John Giang MD [facility] [place] 07/20/23 Office Visit John Giang MD [facility] [place] 06/30/23 Office Visit Terri Melvin PAC [facility] [place] 04/13/23 Office Visit John Giang MD [facility] [place] Showing recent visits within past 365 days and meeting all other requirements Future Appointments Date Type Provider Dept 01/30/24 Appointment John Giang MD [facility] [place] Showing future appointments within next 90 days and meeting all other requirements documented in this encounter Plan of Treatment Upcoming Encounters Date Type Department Care Team (Late st Contact Info) Description 05/29/2025 3:20 PM CDT Office Visit [facility] - Primary Care - [place] [address] [place] [address] John Giang MD [address] [place] [address] documented as of this encounter Visit Diagnoses Diagnosis Chronic pain of both shoulders Pain in joint, shoulder region documented in this encounter Additional Health Concerns Assessment Noted Time PHQ-9 Depression Total Score: 0 10/19/19 24 2:03 PM POND SAWYER documented as of this encounter Care Teams Outbound Call Center Representative Relationship Specialty Start Date End Date John Giang MD PCP - General Internal Medicine 09/26/19 documented as of this encounter
--- OUTSIDE RECORDS SUMMARY | 2025-05-25 14:21 | XMS_ITS | Encounter Summary ---
Author Organization [facility] Address [address] [place] [address] Phone Care Team Providers Care Distribution Sales Representative Name Role Phone John Giang MD Primary Care Provider [phone]- [phone] Reason for Visit * Reason Comments Medication Refill Encounter Details Date Type Department Care Team (Late st Contact Info) Description 11/27/2024 Refill [facility] - [facility] - [place] [address] [place] [address] John Giang MD [address] [place] [address] Medication Refill Social History Tobacco Use Types Packs/Day Years Used Date Smoking Tobacco: Never Passive Smoke Exposure: Never Smokeless Tobacco: Never Alcohol Use Standard Drinks/Week Comments Never 0 (1 standard drink = 0.6 oz pur e alcohol) [facility] Utilities Answer Date Recorded In the past 12 months has [employer], gas, oil, or water [employer] threatened to shut off services in your [...] often do you attend chur ch or alevism services? Never 10/19/2023 Do you belong to [...] 09/15 [facility] - Occupational Stress Questionnaire Answer Date [...] place to sleep or slept in a halfway (including now)? No 10/19/2023 Education Answer Date [...] [facility] - [place] [address] [place] [address] John Giang MD [address] [place] [address] documented as of this encounter Visit Diagnoses Diagnosis Primary insomnia Persistent disorder of initiating or maintaining sleep documented in this encounter Additional Health Concerns Assessment Noted Time PHQ-9 Depression Total Score: 0 10/10/19 25 1:31 PM SENIOR BUSINESS ARCHITECT documented as of this encounter Care Teams Distribution Sales Representative Relationship Specialty Start Date End Date John Giang MD PCP - General Internal Medicine 09/26/19 documented as of this encounter
[2025-05-25 14:22] VITALS: BP 142/67; PULSE 107; RESP 20; TEMP 36.4; O2SAT 98
--- NOTE | 2025-05-25 14:22 | ED.URI ---
HPI - URI/Sore Throat General Chief Complaint: Upper Respiratory Infection Stated Complaint: Sinus Problem Time Seen by Provider: 05/25/25 14:25 Source: patient Mode of arrival: ambulatory Limitations: no limitations History of Present Illness HPI Narrative: Nell is an 85-year-old female patient presenting to the clinic today with complaints ethmoid sinus congestion, chills, and body aches. She reports this has been going on for 3 days. Denies any known fever. Has been taking Benadryl for her symptoms. Rates pain 01/21 currently. Recently been around her grandkids but they were not sick Related Data Home Medications ?Medication ?Instructions ?Recorded ?Confirmed ?Last Taken ?Type temazepam 15 mg capsule 15 mg PO HS 07/21/20 08/26/21 Unknown History omeprazole 20 mg capsule,delayed 20 mg PO DAILY 08/26/21 08/26/21 Unknown History release tramadol 50 mg tablet See Rx Instructions .Route .COMPLEX 08/26/21 01/06/25 Unknown History gabapentin 300 mg capsule mg 01/24/24 Unknown History amlodipine 5 mg tablet mg 09/28/24 Unknown History pravastatin 20 mg tablet mg 05/25/25 Unknown History Allergies Allergy/AdvReac Type Severity Reaction Status Date / Time Sulfa (Sulfonamide Allergy Unknown Unknown Verified 05/25/25 14:28 Antibiotics) Review of Systems Review of Systems: Pertinent positives per HPI. Patient denies any fever, rash, visual changes, dizziness, cough, shortness of breath, chest pain, palpitations, nausea, vomiting, diarrhea, constipation, abdominal pain, or any urinary issues. [facility] Past Medical History Medical History Arthritis Fracture of right wrist Insomnia Neuropathy Sinusitis Hypertension Surgical History Surgical History History of cholecystectomy Family History Family History Mother Family history non-contributory Social History Social History Smoking status: Never smoker Alcohol intake: never Substance use: never Gender identity (if verbalized by the patient): Female Comments At the time of my signature, I reviewed and agree with the nursing past medical, surgical, social, and family history. There is no relevant family history pertinent to the patient complaint. Exam Narrative: General: Well-developed, well nourished, in no apparent distress Head: Normocephalic, atraumatic Eyes: Pupils equally round and reactive to light bilaterally, EOM intact, sclera and conjunctive clear, no discharge, lids normal Ears: TMs intact and clear, ear canals clear, no drainage, grossly hearing normal. Nose: Nares patent, clear nasal discharge, mild inflammation, ethmoid sinus tenderness. Mouth: Oral pharynx without lesions or masses, good dentition, MMM. Neck: Supple, trachea midline, no enlargement of anterior or posterior cervical nodes, no thyroid masses or goiter palpable. Cardio: Regular rate and rhythm, s1 and s2 normal, no murmur appreciated. Resp: Clear to auscultation bilaterally, no rhonchi, rales, wheezing or rubs Course Course Emergency Course: Portions of this record may have been created with voice recognition software. Level of Care: Express Care Visit Vital Signs Vital signs: Vital signs reviewed MDM - URI/Sore Throat MDM Narrative Medical decision making narrative: At the time of visit patient is resting comfortably on the exam table. Patient appears to be nontoxic. complaints maxillary sinus congestion, chills, and body aches. She reports this has been going on for 3 days. Denies any known fever. Has been taking Benadryl for her symptoms. Rates pain 6/10 currently. Recently been around her grandkids but they were not sick. On exam patient has clear nasal drainage with mild anterior turbinates inflammation, tender to palpation over the ethmoid sinuses, lung sounds clear, heart rates regular rate and rhythm. COVID testing was ordered Labs: COVID testing was negative in the clinic today. Plan: I suspect patient has URI. Recommend Flonase and Claritin. Prescriptions were sent to the pharmacy. Supportive measures were discussed with the patient and they voiced understanding discharge instructions and agrees to treatment plan. Return precautions reviewed Differential Diagnosis Differential diagnosis: Likely upper respiratory infection, otitis media, sinusitis, viral infection, bronchitis, influenza, pharyngitis and other (COVID) Discharge Plan Discharge Clinical Impression: URI (upper respiratory infection) Qualifiers: URI type: unspecified URI Qualified Code(s): J06.9 - Acute upper respiratory infection, unspecified Patient Disposition: Home Condition: Stable Instructions: Antibiotic Form, Cold Symptoms (ED) Additional Instructions: COVID testing was negative in the clinic today. Take prescription medications only as prescribed-Claritin and fluticasone Increase fluids and stay well hydrated May take Tylenol or motrin as directed on bottle for pain/fever May apply Vicks vapor rub to chest to open sinuses Sinus rinses for congestion Cepacol spray, cough drops, throat lozenges, warm tea with honey/lemon, gargle salt water to soothe throat BRAT diet for diarrhea Clear liquids x 24 hours then advance as tolerated for nausea/vomiting Go to the ED if you develop a worsening in your condition- high fever not controlled by Tylenol or Motrin, dehydration, weakness, lethargy, shortness of breath, or chest pain. Follow up with your PCP in 3-5 days if symptoms persist. Patient Language: Slovak Prescriptions: New fluticasone propionate 50 mcg/actuation spray,suspension 2 spray intranasal DAILY 30 Days Qty: 16 0RF Rx Instructions: administer into each nostril loratadine 10 mg tablet 10 mg PO DAILY 30 Days Qty: 30 0RF No Action amlodipine 5 mg tablet pravastatin 20 mg tablet temazepam 15 mg Capsule 15 mg PO HS tramadol 50 mg tablet See Rx Instructions .ROUTE .COMPLEX Rx Instructions: as prescribed omeprazole 20 mg capsule,delayed release(DR/EC) 20 mg PO DAILY loratadine [Claritin] 10 mg tablet 10 mg PO DAILY Qty: 20 0RF gabapentin 300 mg capsule Follow-up/Referrals: Rahat,John Pepe MD [Primary Care Provider, Unknown] Time of Disposition: 14:38 Quality NIHSS Nursing Documentation ED NIHSS nursing documentation: reviewed/agree
[2025-05-25 14:44] LABS: EDCOVIDSCREEN Negative (Negative)
== END 2025-05-25 14:41 | disposition home or self-care (01) ==
PROVIDERS: Emergency Provider Nurse Practitioner Family; PCP Internal Medicine
DX: J06.9 Acute upper respiratory infection, unspecified (principal); Z20.822 Contact with and (suspected) exposure to COVID-19; I10 Essential (primary) hypertension; G62.9 Polyneuropathy, unspecified
CPT/HCPCS: 87426; 99213; G0463